=== PATIENT | male | born 1965 | race Caucasian/White ===

== ENCOUNTER → 2020-11-23 10:28 | Outpatient (BNVA) | payer MEDICAID, SELFPAY | PROVIDERS: PCP Family Medicine; Visit Provider Nurse Practitioner ==

== ENCOUNTER → 2020-11-24 13:27 | Outpatient (BNVA) | payer MEDICAID, SELFPAY | PROVIDERS: PCP Family Medicine; Visit Provider Internal Medicine | DX: J44.9 Chronic obstructive pulmonary disease, unspecified (principal); R05 Cough; J30.9 Allergic rhinitis, unspecified | CPT/HCPCS: 99202 ==

== ENCOUNTER 2020-12-15 07:46 | Day surgery (SDC) | payer MEDICAID, SELFPAY ==
[2020-12-10 14:19] VITALS: BMI 34.9
--- NOTE | ~2020-12-15 | XR_ITS ---
EXAMINATION: XR CHEST CLINICAL INFORMATION: Rule out aspiration COMPARISON: Previous chest x-ray most recent October 2018 TECHNIQUE: Frontal view of the chest was obtained. FINDINGS: The cardiac and mediastinal contours are normal. The lungs are clear. There is no pleural effusion. There are degenerative changes of the spine. XR/XR chest 1V IMPRESSION: Unremarkable examination.
--- NOTE | 2020-12-15 08:29 | P.CONAN_ITS ---
[facility] Active Problems Active Problems: All Active Problems (Updated 12/10/20 @ 14:10 by Lucita hilario) GERD with esophagitis (Acute) Holland's esophagus (Acute) Dysphagia (Acute) COPD (chronic obstructive pulmonary disease) (Acute) Allergic rhinitis (Acute) Cough (Acute) Past Medical History Medical History Allergic rhinitis COPD (chronic obstructive pulmonary disease) Cough GERD (gastroesophageal reflux disease) History of Holland's esophagus History of dysphagia Family History Family History Sister Leukemia Surgical History Surgical History History of esophagogastroduodenoscopy (EGD) Hx of colonoscopy Social History Social History Smoking Status: Never smoker Advance Directives Information Provided: No Meds Allergies Allergy/AdvReac Type Severity Reaction Status Date / Time No Known Allergies Allergy Verified 11/24/20 14:58 [No Known Allergies*] Home Medications Medication Instructions Recorded Confirmed Last Taken Type bupropion HCl 100 mg tablet,12 hr 100 mg PO DAILY 11/23/20 12/10/20 Unknown History sustained-release fluticasone 250 mcg-salmeterol 50 1 inh INHALATION BID 11/23/20 12/10/20 Unknown History mcg/dose blistr powdr for inhalation fluticasone propionate 50 1 spray INTRANASAL DAILY 11/23/20 12/10/20 Unknown History mcg/actuation nasal spray,suspension gabapentin 300 mg capsule 300 mg PO BID 11/23/20 12/10/20 Unknown History lisinopril 2.5 mg tablet 2.5 mg PO DAILY 11/23/20 12/10/20 Unknown History oxcarbazepine 150 mg tablet 150 mg PO BID 11/23/20 12/10/20 Unknown History risperidone 0.5 mg tablet 0.5 mg PO BID 11/23/20 12/10/20 Unknown History trazodone 100 mg tablet 100 mg PO BEDTIME 11/23/20 12/10/20 Unknown History Exam Exam Date and Time: December 15, [id number] Height,Weight and Vital Signs: Height 5 ft 7 in Weight 101 kg Airway Mallampati Class: III TM Dist: >3cm Neck ROM: Full Heart: RRR Lungs: CTA
[2020-12-15 08:51] VITALS: BP 120/79; PULSE 64; RESP 18; TEMP 37.1; O2SAT 96
[2020-12-15] MEDS: Lactated Ringers 1,000 ML 50 ML IV (09:05)
--- NOTE | 2020-12-15 09:09 | PC.NURSE ---
Pt lung sounds equal and clear bilateral. Pt uses inhaler PRN and has not used recently.
--- NOTE | 2020-12-15 09:13 | MHC.SHP ---
Pre-Procedural Eval Section A The patient is an INPATIENT: No Changes since office visit: Yes Patient answered all questions; No Cold of Flu in the past 2 weeks, No New Medical Problems and No Changes in Medication The History & Physical has been completed within 30 days and I have reviewed it.: Yes Section B Chief Complaint: Dysphagia Allergies: Allergies Allergy/AdvReac Type Severity Reaction Status Date / Time No Known Allergies Allergy Verified 12/15/20 08:42 [No Known Allergies*] Plan I have reviewed the history and physical and performed a pertinent physical examination on my patient. No changes have occurred unless specified.
--- NOTE | 2020-12-15 09:13 | PM.OP ---
Brief Operative Note Date of Service: 12/15/20 Pre-op diagnosis: GERD, Holland's esophageal [id number] ? hx asthma? EDIN? Post-op diagnosis: other (Holland's esophagus, small Hiatal hernia, superficial gastritis) Procedure: EGD with Bx Implants: none Surgeon: Eveline Alcaraz MD Anesthesia: MAC (Sovago) Estimated blood loss (mL): 5 Pathology: other (Gastric, distal Holland's esophagus) Condition: stable Disposition: PACU
[2020-12-15 09:51] VITALS: BP 117/72; PULSE 92; RESP 16; TEMP 37; O2SAT 96
[2020-12-15 10:06] VITALS: BP 110/66; PULSE 80; RESP 20; TEMP 37; O2SAT 97
--- NOTE | 2020-12-15 10:11 | W.PM.OPN ---
Operative Note Operative Note Date of Service: 12/15/20 Narrative: Pre-op diagnosis: GERD, Holland's esophageal [id number] ? hx asthma/COPD; Mood disorder with hx Psychosis(?) Post-op diagnosis: other (Holland's esophagus, small Hiatal hernia, superficial gastritis) Procedure: EGD with Bx Implants: none Surgeon: Eveline Alcaraz MD Anesthesia: MAC (Sovago) FINDINGS: Video scope introduced without difficulty navigated into the esophagus. Distal changes c/Holland's mucosa noted. ? small Hiatal hernia. STOMACH-MILD ERYTHEMA DUODENAL BULB/DUOD--NORMAL While bx distal esophageal area-desaturation ? 2nd to laryngospasm. Scope withdrawn. Spasm broke with no problems as per anesthesia. Estimated blood loss (mL): 5 Pathology: Gastric, distal Holland's esophagus Condition: stable Disposition: PACU PLAN: PATIENT WILL REMAIN ON BID ACID SUPRESSION. REPEAT EXAM IS DEPENDENT ON RESULT OF THE BX.
[2020-12-15 10:19] VITALS: BP 104/68; RESP 20; O2SAT 98
[2020-12-15 10:36] VITALS: BP 108/78; PULSE 75; RESP 16; TEMP 37; O2SAT 99
[2020-12-15 10:49] VITALS: BP 110/77; PULSE 65; RESP 16; TEMP 36.6; O2SAT 99
--- NOTE | 2020-12-15 11:37 | PC.NURSE ---
Patient took taxi home, mother accompanied him
== END 2020-12-15 11:35 | disposition home or self-care (01) ==
PROVIDERS: PCP Family Medicine; Visit Provider Internal Medicine Gastroenterology
PROC: 0DJ08ZZ Inspection of Upper Intestinal Tract, Via Natural or Artificial Opening Endoscopic (ICD-10-PCS; CPT 43235; principal; 2020-12-15 09:50)
DX: K22.70 Barrett's esophagus without dysplasia (principal); K21.00 Gastro-esophageal reflux disease with esophagitis, without bleeding; K29.30 Chronic superficial gastritis without bleeding; K44.9 Diaphragmatic hernia without obstruction or gangrene; F39 Unspecified mood [affective] disorder; J44.9 Chronic obstructive pulmonary disease, unspecified; Z79.51 Long term (current) use of inhaled steroids; Z79.899 Other long term (current) drug therapy
CPT/HCPCS: 43239; 71045; 88305; 88342

== ENCOUNTER → 2021-01-01 13:24 | Outpatient (BNVA) | payer MEDICAID, SELFPAY | PROVIDERS: Visit Provider Nurse Practitioner ==

== ENCOUNTER → 2021-01-05 10:32 | Outpatient (BNVA) | payer MEDICAID, SELFPAY | PROVIDERS: PCP Family Medicine; Visit Provider Internal Medicine | DX: J30.9 Allergic rhinitis, unspecified (principal); J98.01 Acute bronchospasm; J44.9 Chronic obstructive pulmonary disease, unspecified; R05 Cough | CPT/HCPCS: 99212 ==

== ENCOUNTER 2021-05-27 10:00 | Outpatient (RCR) | payer MEDICAID, SELFPAY | END 2021-10-18 11:58 | disposition home or self-care (01) | LOC: HO.PT 10:00 | PROVIDERS: PCP Family Medicine; Visit Provider Family Medicine | DX: M79.672 Pain in left foot (principal) | CPT/HCPCS: 97110; 97112; 97140; 97162 ==

== ENCOUNTER 2021-07-28 17:05 | Emergency (ER) | payer MEDICAID, SELFPAY ==
[2021-07-28 17:20] VITALS: BP 123/72; BP 132/80; PULSE 90; PULSE 95; RESP 18; TEMP 37.3; O2SAT 95; O2SAT 96; BMI 31.3
[2021-07-28] MEDS: EPINEPHrine 1 MG/ML VIAL 0.3 MG IM (17:36)
[2021-07-28] MEDS: methylPREDNISolone Sod Succ 125 MG/2 ML VIAL IVPUSH (17:38)
[2021-07-28] MEDS: diphenhydrAMINE HCL 50 MG/ML VIAL IVPUSH (17:38)
[2021-07-28] MEDS: Famotidine/PF 20 MG/2 ML VIAL IVPUSH (17:38)
--- NOTE | 2021-07-28 17:43 | ED_ITS ---
HPI - Allergic Reaction General Chief complaint: Allergic Reaction Stated complaint: SOB Time Seen by Provider: 07/28/21 17:23 Source: patient Mode of arrival: EMS Limitations: language barrier (German speaking only) History of Present Illness HPI narrative: 56-year-old male who presents emergency department for an allergic reaction. The patient states that at 4:00 p.m. he ate some shrimp. Immediately after eating the shrimp he developed a scratchy sensation in his throat, swelling around his eyes and face, difficulty swallowing, shortness of breath, and a diffuse pruritic rash. He states he also felt lightheaded and dizzy. The patient went to the [facility] clinic and was treated with epinephrine IM, Benadryl IM and transported to the emergency department by ambulance. The patient states that his symptoms did improve however he states however he still feels like his face is swollen. He still has a sensation of difficulty swallowing and shortness of breath. Presentation to the emergency department he was able to speak in full sentences. He does have a diffuse erythematous rash. Does not appear to be in respiratory distress. He states that he has been able to eat shrimp without any difficulty in the past. He has no known drug allergies. Related Data Home Medications Medication Instructions Recorded Confirmed bupropion HCl 100 mg tablet,12 hr 100 mg PO DAILY 11/23/20 12/10/20 sustained-release fluticasone propionate 50 1 spray INTRANASAL DAILY 11/23/20 12/10/20 mcg/actuation nasal spray,suspension gabapentin 300 mg capsule 300 mg PO BID 11/23/20 12/10/20 lisinopril 2.5 mg tablet 2.5 mg PO DAILY 11/23/20 12/10/20 oxcarbazepine 150 mg tablet 150 mg PO BID 11/23/20 12/10/20 (Trileptal) risperidone 0.5 mg tablet 0.5 mg PO BID 11/23/20 12/10/20 trazodone 100 mg tablet 100 mg PO BEDTIME 11/23/20 12/10/20 Previous Rx's Medication Instructions Recorded dexlansoprazole 60 mg 60 mg PO DAILY 30 Days #30 cap 11/23/20 capsule,biphase delayed release (Dexilant) sucralfate 1 gram tablet (Carafate) 1 g PO BID 30 Days #60 tab 11/23/20 epinephrine 0.3 mg/0.3 mL 0.3 mg (0.3 mL) IM Q10M PRN #2 ea 07/28/21 injection, auto-injector (EpiPen 2-Fausto) prednisone 20 mg tablet 60 mg PO DAILY 5 Days #15 tab 07/28/21 Allergies Allergy/AdvReac Type Severity Reaction Status Date / Time No Known Allergies Allergy Verified 01/05/21 10:55 [No Known Allergies*] Review of Systems Review of Systems: Yes all other systems are reviewed and are negative [facility] Past Medical History Medical History Allergic rhinitis Bronchospasm COPD (chronic obstructive pulmonary disease) Cough GERD (gastroesophageal reflux disease) History of Holland's esophagus History of dysphagia Surgical History History of esophagogastroduodenoscopy (EGD) Hx of abdominal surgery Hx of colonoscopy Family History Family History Sister Leukemia Social History Social History Household Members: None Alcohol intake: never Advance Directives: No Advance Directives Information Provided: Yes Current occupational status: unemployed Physical Exam Vital Signs: Vital Signs: Last Vital Signs Temp 98.7 F 07/28/21 19:51 Pulse 75 07/28/21 19:51 Resp 16 07/28/21 19:51 BP 114/71 07/28/21 19:51 Pulse Ox 96 07/28/21 19:51 BMI result Body Mass Index 31.3 Const: Other: Very pleasant and cooperative, awake alert male patient, able to speak in full sentences patient has a diffuse erythematous rash from head to toe. HENMT: Head: Yes normal to inspection, Yes normocephalic and Yes atraumatic Ears: external ears normal General nose exam: Normal external nose present Face and sinus: Yes normal facial exam Mouth: Normal oral and palatal mucosa present Throat: Yes posterior oropharynx normal Eyes: General: appearance normal, both eyes and all related structures Pupils: Equal, round and reactive pupils present Neck: Neck: Yes normal visual inspection, Yes no lymphadenopathy, Yes trachea midline and Yes supple Chest: Chest palpation & inspection: normal inspection of the chest and normal palpation of entire chest wall Resp: Effort & Inspection: normal respiratory effort and able to speak in complete sentences Auscultation: clear to auscultation bilaterally Cardio: Rate: regular rate Rhythm: regular rhythm Heart sounds: S1 normal heart sound present, S2 normal heart sound present and no murmurs GI: Inspection: Yes normal to inspection Palpation (GI): Soft to palpation, nontender and no guarding Auscultation: normal bowel sounds : General: Yes no CVA tenderness Back/Spine/Pelvis: Back: no CVA tenderness Skin: General skin exam: no rashes or lesions noted Neuro: Cranial nerves: Yes CN's II-XII intact bilaterally and Yes Equal, round and reactive pupils present Cognition (Neuro): normal cognition Motor exam (neuro): 5/5 motor strength present throughout Extrem: General: Yes normal to inspection Psych: Appearance: grossly normal Speech and movement: Normal speech and movement present Affect: normal affect Attitude: cooperative Thought process: Normal thought process present Thought content: Normal thought content present Course Course Course Narrative: 56-year-old male who developed a diffuse urticarial rash, shortness of breath, difficulty swallowing, facial swelling, lightheaded his dizziness immediately after eating shrimp at 4:00 p.m.. This is a new shrimp allergy for the patient patient was seen at the [facility] in treated with epinephrine and Benadryl IM and transported to the emergency department. here in the emergency department he was able to speak full sentences but still has symptoms including facial swelling, diffuse erythematous rash, difficulty swallowing and subjective shortness of breath. Patient was ordered to get epinephrine 0.3 mg IM Benadryl 50 mg IV, famotidine 20 mg IV and Solu-Medrol 125 mg IV. The patient will be kept on a cardiac and pulse oximetry monitor for 4 hours to make sure that does not have a rebound allergic reaction. 2114: The patient's symptoms have completely resolved, the patient states that he has no difficulty swallowing, he denies shortness of breath and he no longer has diffuse erythema. I did discuss allergic reactions with the patient, I also instructed the patient on how to use an EpiPen. Patient was given a prescription for prednisone 60 mg once a day for 5 days he started his next dose tomorrow morning. He was given both printed and verbal instructions on allergic reactions and told to avoid shrimp in the future.. Discharge Plan Discharge Clinical Impression: Anaphylaxis Qualifiers: Encounter type: initial encounter Qualified Code(s): T78.2XXA - Anaphylactic shock, unspecified, initial encounter Patient Disposition: Home, Self-Care Instructions: Anaphylaxis (ED), Tinnitus (ED) Additional Instructions: Your presentation was consistent with an anaphylactic allergic reaction to shrimp. Do not eat trip in the future. You need to carry an EpiPen with you at all times. If you develops any symptoms after eating food such as throat itchiness, tightness, lightheadedness, dizziness, lip or tongue swelling, shortness of breath, nausea or vomiting then you should give yourself an EpiPen as instructed. Take prednisone 20 mg pills, 3 pills once a day for 5 days. Follow-up with your doctor in 2 days. Please return to the emergency department if your symptoms get worse or if you develop any symptoms that are concerning to you. Prescriptions: New prednisone 20 mg tablet 60 mg PO DAILY 5 Days Qty: 15 RF: 0 epinephrine [EpiPen 2-Fausto] 0.3 mg/0.3 mL auto-injector 0.3 mg IM Q10M PRN (Reason: anaphylaxis) Qty: 2 RF: 0 No Action lisinopril 2.5 mg tablet 2.5 mg PO DAILY RF: 0 gabapentin 300 mg capsule 300 mg PO BID RF: 0 risperidone 0.5 mg tablet 0.5 mg PO BID RF: 0 trazodone 100 mg tablet 100 mg PO BEDTIME RF: 0 bupropion HCl 100 mg tablet sustained-release 12 hr 100 mg PO DAILY RF: 0 oxcarbazepine [Trileptal] 150 mg tablet 150 mg PO BID RF: 0 fluticasone propionate 50 mcg/actuation spray,suspension 1 spray intranasal DAILY RF: 0 sucralfate [Carafate] 1 gram tablet 1 g PO BID 30 Days Qty: 60 RF: 6 Dexilant 60 mg capsule,biphase delayed releas 60 mg PO DAILY 30 Days Qty: 30 RF: 0 Print Language: German
[2021-07-28 19:51] VITALS: BP 114/71; PULSE 75; RESP 16; TEMP 37.1; O2SAT 96
== END 2021-07-28 21:32 | disposition home or self-care (01) ==
PROVIDERS: Emergency Provider Emergency Medicine Emergency Medical Services; PCP Family Medicine
DX: T78.02XA Anaphylactic reaction due to shellfish (crustaceans), initial encounter (principal); J44.9 Chronic obstructive pulmonary disease, unspecified
CPT/HCPCS: 96372; 96374; 96375; 99284; J0171; J1200; J2930

== ENCOUNTER → 2021-09-27 09:46 | Outpatient (BNVA) | payer MEDICAID, SELFPAY | PROVIDERS: PCP Family Medicine; Visit Provider Internal Medicine | DX: J98.01 Acute bronchospasm (principal); J30.9 Allergic rhinitis, unspecified; R05.9 Cough, unspecified | CPT/HCPCS: 99212 ==

== ENCOUNTER → 2021-10-26 13:21 | Outpatient (BNVA) | payer MEDICAID, SELFPAY | PROVIDERS: PCP Family Medicine; Referring Provider Family Medicine; Visit Provider Nurse Practitioner | DX: R13.10 Dysphagia, unspecified (principal); K21.00 Gastro-esophageal reflux disease with esophagitis, without bleeding; K22.70 Barrett's esophagus without dysplasia | CPT/HCPCS: 99212 ==

== ENCOUNTER → 2022-05-25 09:59 | Outpatient (BNVA) | payer MEDICAID, SELFPAY | PROVIDERS: PCP Family Medicine; Referring Provider Family Medicine; Visit Provider Nurse Practitioner | DX: K21.00 Gastro-esophageal reflux disease with esophagitis, without bleeding (principal); K22.70 Barrett's esophagus without dysplasia | CPT/HCPCS: 99212 ==

== ENCOUNTER 2022-07-01 16:56 | Emergency (ER) | payer MEDICAID, SELFPAY ==
[2022-07-01 17:35] VITALS: BP 120/65; PULSE 83; RESP 18; TEMP 36.7; O2SAT 95; BMI 30.4
[2022-07-01 17:53] LABS: MANUAL DIFF FLAG NO
[2022-07-01 17:56] LABS: Glucose, Whole Blood 397 mg/dL (60-115)
--- NOTE | 2022-07-01 18:11 | ED_ITS ---
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 Patient states that he was seen at the [facility] and told that he has an elevated blood sugar and that he should be seen in the Emergency Department. Patient denies any dizziness, lightheadedness, abdominal pain, nausea, vomiting, fever, chills, blurry vision, double vision, loss of vision, chest pain, difficulty breathing, shortness of breath, back pain, night sweats, pain with urination, increased urinary frequency, increased urinary urgency, blood in his urine or stool, syncope or a near syncopal episode, recent trauma or falls, bowel incontinence, bladder incontinence, bowel retention, bladder retention, or any other complaints at this time. Severity: mild Relieving factors: none Exacerbating factors: none Associated symptoms: denies other symptoms Treatments prior to arrival: none Related Data Home Medications Medication Instructions Recorded Confirmed bupropion HCl 100 mg tablet,12 hr 100 mg PO DAILY 11/23/20 09/27/21 sustained-release fluticasone propionate 50 1 spray intranasal DAILY 11/23/20 09/27/21 mcg/actuation nasal spray,suspension gabapentin 300 mg capsule 300 mg PO BID 11/23/20 09/27/21 lisinopril 2.5 mg tablet 2.5 mg PO DAILY 11/23/20 09/27/21 oxcarbazepine 150 mg tablet 150 mg PO BID 11/23/20 09/27/21 (Trileptal) risperidone 0.5 mg tablet 0.5 mg PO BID 11/23/20 09/27/21 albuterol sulfate 90 mcg/actuation 2 puff inhalation Q6H PRN 09/27/21 09/27/21 aerosol inhaler (ProAir HFA) albuterol sulfate 2.5 mg/3 mL mg inhalation QID PRN 10/26/21 (0.083 %) solution for nebulization fluticasone 250 mcg-salmeterol 50 1 ea PO 10/26/21 mcg/dose blistr powdr for inhalation (Advair Diskus) losartan 25 mg tablet 12.5 mg PO QAM 10/26/21 alcohol swabs (Alcohol Prep Pads) pad topical TID diabetes mellitus 05/25/22 atorvastatin 20 mg tablet 20 mg PO BEDTIME 05/25/22 blood sugar diagnostic ([facility] 05/25/22 Verio test strips) blood-glucose [facility]25[facility]22 Verio Flex Meter) cyclobenzaprine 10 mg tablet 10 mg PO DAILY PRN muscle spasm 05/25/22 lancets 33 gauge ([facility] Delica #100 ea 05/25/22 Plus Lancet) metformin 500 mg tablet,extended 1,000 mg PO 05/25/22 release 24 hr trazodone 150 mg tablet 150 mg PO BEDTIME PRN insomnia 05/25/22 Previous Rx's Medication Instructions Recorded epinephrine 0.3 mg/0.3 mL 0.3 mg (0.3 mL) IM Q10M PRN 07/28/21 injection, auto-injector (EpiPen anaphylaxis #2 ea 2-Fausto) sucralfate 1 gram tablet 1 g PO BID #60 tabs 10/26/21 dexlansoprazole 60 mg 60 mg PO QAM #30 caps 04/27/22 capsule,biphase delayed release (Dexilant) famotidine 40 mg tablet 40 mg PO BEDTIME #30 tabs 04/27/22 Allergies Allergy/AdvReac Type Severity Reaction Status Date / Time No Known Allergies Allergy Verified 05/25/22 10:07 [No Known Allergies*] Review of Systems Constitutional: Constitutional: Reports no additional constitutional complaints, Denies chills, Denies fever(s) and Denies night sweats Eyes: Eyes: Reports no additional eye complaints, Denies blurry vision, Denies change in vision, Denies diplopia, Denies eye discharge, Denies loss of vision and Denies eye pain ENT: Denies dizziness Cardiovascular: Cardiovascular: Reports no additional cardiovascular complaints, Denies chest pain, Denies lightheadedness, Denies Loss of Conscio usness and Denies dyspnea Respiratory: Respiratory: Reports no additional respiratory complaints and Denies dyspnea Gastrointestinal: Gastrointestinal: Reports no additional gastrointestinal c omplaints, Denies abdominal pain, Denies melena, Denies hematochezia, Denies change in bowel habits and Denies change in stool character Genitourinary: Genitourinary: Reports no additional male genitourinary complaints, Denies hematuria, Denies oliguria, Denies difficulty urinating, Denies dysuria, Denies urinary frequency, Denies urinary hesitancy, Denies urinary incontinence and Denies urinary urgency Musculoskeletal: Musculoskeletal: Reports no additional musculoskeletal complaints, Denies numbness and Denies tingling Neurologic: Denies dizziness, Denies loss of vision, Denies numbness and Denies tingling Psychiatric: Psychiatric: Reports no additional psychiatric complaints Endocrine: Endocrine: Reports no additional endocrine complaints Hematologic/Lymphatic: Hematologic/Lymphatic: Reports no additional hematologic/lymphatic complaints Allergic/Immunologic: Allergic/Immunologic: Reports no additional allergic/immunologic complaints [facility] Past Medical History Attestation statement: The following information was validated with the patient. Source: old records reviewed Medical History Allergic rhinitis Bronchospasm COPD (chronic obstructive pulmonary disease) Cough GERD (gastroesophageal reflux disease) History of Holland's esophagus History of dysphagia Surgical History History of esophagogastroduodenoscopy (EGD) Hx of abdominal surgery Hx of colonoscopy Family History Family History Sister Leukemia Social History Social History Household Members: None Alcohol intake: never Advance Directives: No Advance Directives Information Provided: No Current occupational status: unemployed Physical Exam ED Vital Signs: Vital Signs - 24 hr 07/01/22 17:35 Temperature 98.1 F Pulse Rate 83 Respiratory Rate 18 Blood Pressure 120/65 Pulse Oximetry 95 Oxygen Delivery Method Room Air BMI result Body Mass Index 30.4 Const General: cooperative, no acute distress, alert and awake Nutritional Appearance: well nourished Orientation/consciousness: patient oriented x3 Limitations: no limitations HENMT Head: Yes normal to inspection and Yes atraumatic Ears: hearing grossly normal bilaterally and external ears normal General nose exam: Normal external nose present, no nasal discharge noted and no epistaxis Face and sinus: Yes normal facial exam, No abrasion and No laceration Mouth: Normal oral and palatal mucosa present, no drooling and no muffled voice Eyes General: appearance normal, both eyes and all related structures Periorbital: periorbital findings normal Eyelids: Yes eyelids normal Conjunctivae: conjunctivae normal Pupils: Equal, round and reactive pupils present EOM: EOMs intact bilaterally Neck Neck: Yes normal visual inspection, Yes full ROM and Yes no lymphadenopathy Chest Chest palpation & inspection: normal inspection of the chest Resp Effort & Inspection: normal respiratory effort and able to speak in complete sentences Auscultation: clear to auscultation bilaterally Cardio Rate: regular rate Rhythm: regular rhythm GI Inspection: Yes normal to inspection Palpation (GI): Soft to palpation, not firm, nontender, no guarding and not rigid Neuro General: patient oriented x3 and moves all extremities Cranial nerves: Yes Equal, round and reactive pupils present Cognition (Neuro): normal cognition Motor exam (neuro): 5/5 motor strength present throughout Sensory Exam: Normal double simultaneous stimulation for sensation Coordination: [id number] test normal Extrem General: Yes normal to inspection, Yes full ROM and Yes capillary refill normal Psych Appearance: grossly normal Mental Status: mental status grossly normal Affect: normal affect Attitude: cooperative Thought process: Normal thought process present Thought content: Normal thought content present Insight: Good insight present (Psych) Course Course Course Narrative: RME completed by Jolynn Page PA-C. Patient seen at [facility] and was told that his blood sugar was high and told to come to the ER. Labs ordered. Patient placed back in waiting room pending room availability and lab results. Patient eloped from the department before his results could be reviewed with him. Medical Decision Making Lab Data Result diagrams: 07/01/22 17:49 07/01/22 17:49 Labs: Lab Results 07/01/22 07/01/22 07/01/22 Range/Units 17:44 17:49 17:49 WBC 9.9 (4.8-10.8) X10*3/uL RBC 5.17 (4.60-5.80) X10*6/uL Hgb 15.1 (14.0-18.0) g/dl Hct 44.7 (42.0-52.0) % MCV 86.5 (80.0-98.0) fL MCH 29.2 (27.0-33.0) pg MCHC 33.8 (31.0-36.0) g/dl RDW 12.7 (11.0-16.0) % Plt Count 187 (160-400) X10*3/uL MPV 10.4 (9.4-12.4) fL Immature Gran % (Auto) 0.7 H (0.0-0.4) % Neut % (Auto) 53.5 (45-73) % Lymph % (Auto) 37.1 (20-40) % [place] % (Auto) 7.4 (2-11) % Eos % (Auto) 1.1 (0-4) % Baso % (Auto) 0.2 (0-2) % Lymph # (Auto) 3.7 (1.2-4.9) X10*3/uL [place] # (Auto) 0.7 (0.1-1.2) X10*3/uL Eos # (Auto) 0.1 (0.0-0.4) X10*3/uL Baso # (Auto) 0.0 (0.0-0.2) X10*3/uL Abs Immat Gran (auto) 0.07 H (0.00-0.03) X10*3/uL Absolute Neuts (auto) 5.3 (2.0-8.3) x10*3/uL Absolute Nucleated RBC 0.000 (0.0-0.012) X10*3/uL Nucleated RBC % (auto) 0.0 (0.0-0.2) /100WBC Sodium 134 L (135-145) mmol/L Potassium 4.4 (3.3-5.1) mmol/L Chloride 97 (96-108) mmol/L Carbon Dioxide 26 (22-29) mmol/L Anion Gap 15 (12-20) BUN 15 (9-16) mg/dL Creatinine 1.22 (0.5-1.4) mg/dL Estim Creat Clear Calc 71.4 Estimated GFR > 60 POC Glucose 397 H* (60-115) mg/dL Random Glucose 419 H* (60-115) mg/dL Estimat Average Glucose Hemoglobin A1c % % Calcium 10.1 (8.4-10.2) mg/dL Total Bilirubin 0.4 (0.0-1.0) mg/dL AST 17 (5-37) U/L ALT 20 (0-40) U/L Alkaline Phosphatase 140 H (39-117) U/L Total Protein 7.2 (6.5-8.0) g/dL Albumin 4.3 (3.5-5.0) g/dL 07/01/22 Range/Units 17:49 WBC (4.8-10.8) X10*3/uL RBC (4.60-5.80) X10*6/uL Hgb (14.0-18.0) g/dl Hct (42.0-52.0) % MCV (80.0-98.0) fL MCH (27.0-33.0) pg MCHC (31.0-36.0) g/dl RDW (11.0-16.0) % Plt Count (160-400) X10*3/uL MPV (9.4-12.4) fL Immature Gran % (Auto) (0.0-0.4) % Neut % (Auto) (45-73) % Lymph % (Auto) (20-40) % [place] % (Auto) (2-11) % Eos % (Auto) (0-4) % Baso % (Auto) (0-2) % Lymph # (Auto) (1.2-4.9) X10*3/uL [place] # (Auto) (0.1-1.2) X10*3/uL Eos # (Auto) (0.0-0.4) X10*3/uL Baso # (Auto) (0.0-0.2) X10*3/uL Abs Immat Gran (auto) (0.00-0.03) X10*3/uL Absolute Neuts (auto) (2.0-8.3) x10*3/uL Absolute Nucleated RBC (0.0-0.012) X10*3/uL Nucleated RBC % (auto) (0.0-0.2) /100WBC Sodium (135-145) mmol/L Potassium (3.3-5.1) mmol/L Chloride (96-108) mmol/L Carbon Dioxide (22-29) mmol/L Anion Gap (12-20) BUN (9-16) mg/dL Creatinine (0.5-1.4) mg/dL Estim Creat Clear Calc Estimated GFR POC Glucose (60-115) mg/dL Random Glucose (60-115) mg/dL Estimat Average Glucose TNP Hemoglobin A1c % > 14.0 % Calcium (8.4-10.2) mg/dL Total Bilirubin (0.0-1.0) mg/dL AST (5-37) U/L ALT (0-40) U/L Alkaline Phosphatase (39-117) U/L Total Protein (6.5-8.0) g/dL Albumin (3.5-5.0) g/dL Discharge Plan Discharge Clinical Impression: Diabetes Patient Disposition: Elopement Prescriptions: No Action famotidine 40 mg tablet 40 mg PO BEDTIME Qty: 30 6RF dexlansoprazole [Dexilant] 60 mg capsule,biphase delayed releas 60 mg PO QAM Qty: 30 6RF epinephrine [EpiPen 2-Fausto] 0.3 mg/0.3 mL auto-injector 0.3 mg IM Q10M PRN (Reason: anaphylaxis) Qty: 2 0RF Rx Instructions: for 2 doses lisinopril 2.5 mg tablet 2.5 mg PO DAILY gabapentin 300 mg capsule 300 mg PO BID risperidone 0.5 mg tablet 0.5 mg PO BID bupropion HCl 100 mg tablet sustained-release 12 hr 100 mg PO DAILY oxcarbazepine [Trileptal] 150 mg tablet 150 mg PO BID fluticasone propionate 50 mcg/actuation spray,suspension 1 spray intranasal DAILY Rx Instructions: administer into each nostril losartan 25 mg tablet 12.5 mg PO QAM fluticasone propion-salmeterol [Advair Diskus] 250-50 mcg/dose blister with device 1 ea PO albuterol sulfate 2.5 mg /3 mL (0.083 %) solution for nebulization inhalation QID PRN sucralfate 1 gram tablet 1 g PO BID Qty: 60 6RF albuterol sulfate [ProAir HFA] 90 mcg/actuation HFA aerosol inhaler 2 puff inhalation Q6H PRN (DME) lancets [OneTouch Delica Plus Lancet] 33 gauge misc See Rx Instructions .ROUTE TID Qty: 100 Rx Instructions: As directed alcohol swabs [Alcohol Prep Pads] Pads, Medicated topical TID (DME) OneTouch Verio test strips Strip See Rx Instructions .ROUTE TID Qty: 10 Rx Instructions: As directed atorvastatin 20 mg tablet 20 mg PO BEDTIME cyclobenzaprine 10 mg tablet 10 mg PO DAILY PRN (Reason: muscle spasm) trazodone 150 mg tablet 150 mg PO BEDTIME PRN (Reason: insomnia) (DME) blood-glucose meter [[facility] Verio Flex meter] Misc See Rx Instructions .ROUTE BID Qty: 1 Rx Instructions: As directed metformin 500 mg tablet extended release 24 hr 1,000 mg PO Discharge Date/Time: 07/01/22 21:54
[2022-07-01 18:14] LABS: Basophils Percent Auto 0.2 % (0-2); Eosinophils Absolute Auto 0.1 X10*3/uL (0.0-0.4); Eosinophils Percent Auto 1.1 % (0-4); Hematocrit 44.7 % (42.0-52.0); Hemoglobin 15.1 g/dl (14.0-18.0); Imm Gran Abs Auto 0.07 X10*3/uL (0.00-0.03); Imm Gran Pct Auto 0.7 % (0.0-0.4); Lymphocytes Absolute Auto 3.7 X10*3/uL (1.2-4.9); Lymphocytes Percent Auto 37.1 % (20-40); Mean Corpuscular HGB Conc 33.8 g/dl (31.0-36.0); Mean Corpuscular Hemoglobin 29.2 pg (27.0-33.0); Mean Corpuscular Volume 86.5 fL (80.0-98.0); Mean Platelet Volume 10.4 fL (9.4-12.4); Monocytes Absolute Auto 0.7 X10*3/uL (0.1-1.2); Monocytes Percent Auto 7.4 % (2-11); Neutrophils Absolute Auto 5.3 x10*3/uL (2.0-8.3); Neutrophils Percent Auto 53.5 % (45-73); Platelet Count 187 X10*3/uL (160-400); Red Blood Count 5.17 X10*6/uL (4.60-5.80); Red Cell Distribution Width 12.7 % (11.0-16.0); White Blood Count 9.9 X10*3/uL (4.8-10.8)
[2022-07-01 18:21] LABS: Alanine Aminotransferase 20 U/L (0-40); Albumin Level 4.3 g/dL (3.5-5.0); Alkaline Phosphatase 140 U/L (39-117); Anion Gap 15 (12-20); Aspartate Amino Transferase 17 U/L (5-37); Bilirubin Total 0.4 mg/dL (0.0-1.0); Blood Urea Nitrogen 15 mg/dL (9-16); Calcium 10.1 mg/dL (8.4-10.2); Carbon Dioxide 26 mmol/L (22-29); Chloride 97 mmol/L (96-108); Creatinine Clr Calc Pharmacy 71.4; Estimated Glomerular Filt Rate > 60; Glucose Random 419 mg/dL (60-115); Hemoglobin A1c % > 14.0 %; Potassium 4.4 mmol/L (3.3-5.1); Sodium 134 mmol/L (135-145); Total Protein 7.2 g/dL (6.5-8.0)
== END 2022-07-01 21:54 | disposition left against medical advice (07) ==
PROVIDERS: Physician Assistant Medical; Emergency Provider Emergency Medicine; PCP Family Medicine
DX: E11.9 Type 2 diabetes mellitus without complications (principal); I10 Essential (primary) hypertension; Z79.899 Other long term (current) drug therapy
CPT/HCPCS: 36415; 80053; 82947; 83036; 85025; 99281; 99283

== ENCOUNTER 2022-12-12 08:02 | Outpatient (REF) | payer MEDICAID, SELFPAY ==
--- NOTE | 2022-12-12 10:00 | MHC.AU.HA1 ---
Hearing Aid Evaluation Date of Visit: 12/12/22 Triage Specialist Used: Kiswahili- By Phone Historical Information: Description of Hearing: Borderline-normal sloping to severe sensorineural hearing loss bilaterally, worse in the right ear Summary: Patient was seen for audiological evaluation (see separate report for details). He is interested in trying amplification. He has noticed that his hearing loss is impacting his daily life and communication. Options were discussed. Hearing Aid Prescription: Based on the individual?s shared listening needs, communication environments, dexterity, desire for connectivity, and personal preferences, the following prescription for amplification has been made: Right ear: Make, Model, Color: Phonak Audeo L70-R, Black Battery Size: Rechargeable Manufacturing Mechanic/Slim Tube: 1M Type of Earmold/Dome/CShell/SlimTip: Open Dome Left ear: Make, Model, Color: Phonak Audeo L70-R, Black Battery Size: Rechargeable Manufacturing Mechanic/Slim Tube: 1M Type of Earmold/Dome/CShell/SlimTip: Open Dome Action Taken/Action Needed: Medical Clearance to be requested from PCP/ENT Hearing Instrument Fitting to be scheduled when materials arrive Primary Diagnosis: H90.3 Bilateral Sensorineural Hearing Loss Signature: Provider: Moriah Strauss, LESTER-A
--- NOTE | 2022-12-12 10:06 | MHC.AU.MED ---
Medical Clearance for Hearing Instrumentation Date: 12/12/22 Patient Name: Miguel Goldstein Date of : 1965 Referring Provider: Samra Marsh MD We have seen your patient on 12/12/22 and have determined that they are a candidate for amplification (See accompanying report). Specifically, they would benefit from: Hearing aid use in both ears There is a statute that addresses Medical Evaluation Requirements prior to fitting a patient with a hearing aid. According to [place] statute [facility] CMR:6.03(1), (a) General. Except as provided in 265 CMR 6.03(1)(b), a rod placer shall not sell a hearing aid unless the prospective user has presented to the rod placer a written statement signed by a licensed physician that states that the patient's hearing loss has been medically evaluated and the patient may be considered a candidate for a hearing aid. The medical evaluation must have taken place within the preceding six months. Please note: Due to the [place] Statute referenced above, we cannot accept a signature other than that of a licensed physician. LEAD MINER and PA signatures cannot be accepted. I am in agreement with the above recommendation. There is no medical contraindication for hearing instrumentation. Physician Signature Date Physician Name (Printed)
== END 2022-12-12 08:03 | disposition home or self-care (01) ==
LOC: HO.SH 08:02
PROVIDERS: Visit Provider Family Medicine
DX: H90.3 Sensorineural hearing loss, bilateral (principal)
CPT/HCPCS: 92557; 92567; 92591

== ENCOUNTER 2023-01-11 08:25 | Outpatient (REF) | payer MEDICAID, SELFPAY ==
--- NOTE | 2023-01-11 08:52 | MHC.AU.NMH ---
Hearing Aid Delivery Receipt: Third Libertarian Payor [facility] type [facility] Other: Date of Fitting: End of Adjustment Period: 30 days from date of fitting Vending Machine Coin Collector: Right Ear: Left Ear: Make, Model, Serial Number and Color: Phonak Shahzadeo L70-R, Olman S#[id number] Make, Model, Serial Number and Color: Phonak Shahzadeo L70-R, Olman S#[id number] Bolt Machine Operator/Slim Tube: 1M Bolt Machine Operator/Slim Tube: 1M Earmold/Dome/CShell/SlimTip: Open Dome Earmold/Dome/CShell/SlimTip: Open Dome Type of Wax Guard: CeruShield Disk Type of Wax Guard: CeruShield Disk Battery Size: Rechargeable Battery Size: Rechargeable Laundry Supervisor Repair Warranty: 03/26/2026 Laundry Supervisor Repair Warranty: 03/26/2026 Laundry Supervisor Loss and Damage Warranty: 03/26/2026 Laundry Supervisor Loss and Damage Warranty: 03/26/2026 [facility] Service Agreement ends one year from date of fitting on? [facility] Service Agreement ends one year from date of fitting on Accessories/Assistive Technology: Phonak battery charger conveyor line Case Combi S#[id number] Following the expiration of [facility]?s service agreement, charges for items and services listed above are billed at the usual and customary rate. *If coverage by third republican payor exists, medically necessary modifications, repairs, etc. will be billed to said third republican payor. If there is no third republican payor eligibility beyond the service agreement or forest ranger technician warranty periods, items will be billed per usual and customary rates and payment is expected at the time of service. Hearing aids that are lost or damaged beyond repair cannot be returned for credit, and the bindery worker is liable for the full purchase hyatt. My signature below acknowledges that I have read and understand this hearing aid contract and have received the goods and services out lined above. ?Date? Home Address: ? PATIENT STICKER ? This hearing aid will not restore normal hearing nor will it prevent further hearing loss. The sale of a hearing aid is restricted to those individuals who have obtained a medical evaluation from a licensed physician or senior sql developer. A fully informed adult whose advent or personal beliefs preclude consultation with a physician may waive the requirement of a medical evaluation. The exercise of such a waiver is not in your best health interest and its use is strongly discouraged. It is also required that a person under the age of eighteen years obtain an evaluation by an cloth shrinking machine operator helper in addition to the medical evaluation before a hearing aid can be sold to such person. Cheko Figueroa,Title XV,Chapter 93:74
== END 2023-01-11 08:26 | disposition home or self-care (01) ==
LOC: HO.HAP 08:25
PROVIDERS: Visit Provider Family Medicine
DX: Z46.1 Encounter for fitting and adjustment of hearing aid (principal); H90.3 Sensorineural hearing loss, bilateral
CPT/HCPCS: V5011; V5020; V5160; V5261

== ENCOUNTER 2023-02-13 10:10 | Outpatient (REF) | payer MEDICAID, SELFPAY | END 2023-02-13 10:11 | disposition home or self-care (01) | LOC: HO.HAP 10:10 | PROVIDERS: Visit Provider Family Medicine | DX: Z13.89 Encounter for screening for other disorder (principal) ==

== ENCOUNTER 2023-04-27 11:14 | Outpatient (REF) | payer MEDICAID, SELFPAY ==
[2023-04-27 13:53] LABS: Cholesterol 121 mg/dL (<200); HDL Cholesterol 43 mg/dL (>40); LDL Cholesterol Calculated 59 mg/dL (<100); Triglycerides 95 mg/dL (<150)
[2023-04-27 13:54] LABS: Alanine Aminotransferase 17 U/L (0-40); Albumin Level 4.1 g/dL (3.5-5.0); Alkaline Phosphatase 98 U/L (39-117); Anion Gap 13 (12-20); Aspartate Amino Transferase 17 U/L (5-37); Bilirubin Total 0.3 mg/dL (0.0-1.0); Blood Urea Nitrogen 10 mg/dL (9-16); Calcium 9.7 mg/dL (8.4-10.2); Carbon Dioxide 26 mmol/L (22-29); Chloride 107 mmol/L (96-108); Estimated Glomerular Filt Rate > 60; Glucose Random 118 mg/dL (60-115); Potassium 4.2 mmol/L (3.3-5.1); Sodium 142 mmol/L (135-145); Total Protein 7.4 g/dL (6.5-8.0)
[2023-04-27 14:11] LABS: TSH reflex Free T4 3.95 uIU/mL (0.32-4.0)
[2023-04-27 14:15] LABS: Creatinine Urine 149.27 mg/dL; Microalbum/Creatinine Ratio Ur 7.3 ug/mg cr (<30)
[2023-04-27 14:24] LABS: Folate 9.3 ng/mL (> or = 4.0); Vitamin B12 453 pg/mL (200-900)
[2023-04-27 14:38] LABS: Reflex LDLD? No
== END 2023-04-27 11:15 | disposition home or self-care (01) ==
LOC: HO.HHCL 11:14
PROVIDERS: Visit Provider Family Medicine
DX: E66.09 Other obesity due to excess calories (principal); Z68.34 Body mass index [BMI] 34.0-34.9, adult; E11.65 Type 2 diabetes mellitus with hyperglycemia; Z79.4 Long term (current) use of insulin
CPT/HCPCS: 36415; 80053; 80061; 82043; 82570; 82607; 82746; 84443

== ENCOUNTER 2024-01-09 14:22 | Outpatient (REF) | payer MEDICAID, SELFPAY ==
[2024-01-09 15:33] LABS: MANUAL DIFF FLAG NO
[2024-01-09 15:55] LABS: Basophils Absolute Auto 0.1 X10*3/uL (0.0-0.2); Basophils Percent Auto 0.5 % (0-2); Eosinophils Absolute Auto 0.2 X10*3/uL (0.0-0.4); Hemoglobin 14.5 g/dl (14.0-18.0); Imm Gran Abs Auto 0.05 X10*3/uL (0.00-0.03); Imm Gran Pct Auto 0.4 % (0.0-0.4); Lymphocytes Absolute Auto 4.9 X10*3/uL (1.2-4.9); Lymphocytes Percent Auto 42.4 % (20-40); Mean Corpuscular HGB Conc 32.2 g/dl (31.0-36.0); Mean Corpuscular Hemoglobin 28.6 pg (27.0-33.0); Mean Corpuscular Volume 88.8 fL (80.0-98.0); Mean Platelet Volume 9.2 fL (9.4-12.4); Monocytes Absolute Auto 1.1 X10*3/uL (0.1-1.2); Monocytes Percent Auto 9.3 % (2-11); Neutrophils Absolute Auto 5.3 x10*3/uL (2.0-8.3); Neutrophils Percent Auto 45.4 % (45-73); Platelet Count 230 X10*3/uL (160-400); Red Blood Count 5.07 X10*6/uL (4.60-5.80); Red Cell Distribution Width 14.1 % (11.0-16.0); White Blood Count 11.6 X10*3/uL (4.8-10.8)
[2024-01-09 17:19] LABS: Alanine Aminotransferase 48 U/L (0-40); Albumin Level 4.2 g/dL (3.5-5.0); Alkaline Phosphatase 95 U/L (39-117); Anion Gap 16 (12-20); Aspartate Amino Transferase 35 U/L (5-37); Bilirubin Total 0.3 mg/dL (0.0-1.0); Blood Urea Nitrogen 16 mg/dL (9-16); Carbon Dioxide 27 mmol/L (22-29); Chloride 105 mmol/L (96-108); Estimated Glomerular Filt Rate > 60; Glucose Random 100 mg/dL (60-115); Potassium 4.2 mmol/L (3.3-5.1); Sodium 144 mmol/L (135-145); Total Protein 7.6 g/dL (6.5-8.0)
== END 2024-01-09 14:23 | disposition home or self-care (01) ==
LOC: HO.LAB 14:22
PROVIDERS: PCP Family Medicine; Visit Provider Nurse Practitioner
DX: Z01.818 Encounter for other preprocedural examination (principal); K22.70 Barrett's esophagus without dysplasia; K21.00 Gastro-esophageal reflux disease with esophagitis, without bleeding
CPT/HCPCS: 36415; 80053; 85025; 99212

== ENCOUNTER 2024-01-09 14:22 | Outpatient (AMB) | payer MEDICAID, SELFPAY ==
[2024-01-09 14:29] VITALS: BP 132/79; PULSE 83; BMI 34.9
--- NOTE | 2024-01-09 14:29 | A.OFFVIS_ITS ---
Vital Signs 3 01/09/24 14:29 Height 5 ft 7 in Weight 223 lb BMI 34.9 BP 132/79 Blood Pressure Location Lt brachial Position Sitting Pulse 83 Intake Visit Reasons: Wren's esophagus Intake Note: Patient in office visit today in follow up of wren's esophagus. CC; Patient states that he has been doing well and denies having any GI concerns today. 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 He has no new medical conditions to report he continues to call manage his diabetes. He will be due for repeat colonoscopy in 2023. ROV 6 mos. (2) Wren's esophagus: ?Comment: 2017 EGD = SSBE by biopsy and visual; 2021 scope no metaplasia but continued esophageal irritation noted ?Code(s): K22.70 - Wren's esophagus without dysplasia TODAY'S VISIT Czech #Lon Live He is due for a colonoscopy, he had a negative exam in 2013 He continues to do well on his medications; his Dexilant, famotidine and carafate He thinks he had a sister who of crc - she of some colon problem. His COPD is well controlled and he denies any cardiac problems. There are no prior problems with anesthesia or sedation, he is on Trulicity. No ID problems PFSH Medical History Bronchospasm History of dysphagia GERD (gastroesophageal reflux disease) History of Wren's esophagus COPD (chronic obstructive pulmonary disease) Allergic rhinitis Cough Surgical History Hx of abdominal surgery Hx of colonoscopy History of esophagogastroduodenoscopy (EGD) Family History Sister Leukemia Social History Household Members: None Alcohol intake: never Current occupational status: unemployed Review of Systems Const Denies fatigue, Denies fever(s), Denies night sweats, Denies poor appetite and Denies weight loss ENT Reports Normal hearing present, Denies dental pain, Denies dysphagia, Denies hearing loss, Denies mouth pain, Denies odynophagia, Denies throat swelling, Denies tongue swelling and Reports other (Dentition adequate) Card Reports no additional complaints Resp Reports no additional complaints GI Details: Denies abdominal pain, Denies melena, Denies bloating, Denies hematochezia, Denies constipation, Denies GI cramping, Denies dysphagia, Denies excessive flatus, Denies early satiety, Reports heartburn, Reports diarrhea, Denies nausea, Denies odynophagia, Denies vomiting and Denies hematemesis Skin/Breast Denies pruritus, Denies lesions, Denies rash and Denies jaundice Neuro Reports Normal hearing present and Denies Abnormal speech present Endo Denies fatigue Aller/Immun Denies throat swelling and Denies tongue swelling Physical Exam Vital Signs: Last Vital Signs Pulse 83 01/09/24 14:29 BP 132/79 01/09/24 14:29 BMI result Body Mass Index 34.9 Const General: cooperative, no acute distress, well developed and well groomed Nutritional Appearance: well nourished and obese Orientation/consciousness: oriented to person, oriented to place and oriented to time Limitations: language barrier HEENT Head: Yes normocephalic and Yes atraumatic Eyes General: appearance normal, both eyes and all related structures Pupils: Equal, round and reactive pupils present Neck Neck: Yes normal visual inspection and Yes no lymphadenopathy Thyroid: Thyroid normal Resp Effort & Inspection: normal respiratory effort and able to speak in complete sentences Auscultation: clear to auscultation bilaterally Cardio Rate: regular rate Rhythm: regular rhythm Heart sounds: Normal, physiologic split S2 sound present Peripheral pulses: radial pulses present and posterior tibial pulses present GI Inspection: No distended, No Abdominal panniculus present and Yes obesity Palpation (GI): Soft to palpation, nontender, no guarding, not rigid and No hepatosplenomegaly present Percussion: Yes normal to percussion Auscultation: normal bowel sounds Rectal Exam - Male: Yes deferred Abdomen image: 2 1. surgical scar Skin General skin exam: no rashes or lesions noted, turgor normal, skin not dry, no jaundice, No spider nevi and no striae Rashes: no rashes Nails: normal Neuro General: oriented to person, oriented to place and oriented to time Cranial nerves: Yes Equal, round and reactive pupils present and Yes Normal hearing present Speech: No Abnormal speech present Extrem General: Yes normal to inspection, No clubbing, No cyanosis and No edema Psych Appearance: grossly normal and well kempt Mental Status: mental status grossly normal Speech and movement: Normal speech and movement present Affect: normal affect Attitude: cooperative Thought process: Normal thought process present and not confabulating Thought content: Normal thought content present Insight: Limited insight present (Psych) Judgement: Limited judgement present (Psych) Assessment & Plan Assessment & Plan (1) GERD with esophagitis: Code(s): K21.00 - Gastro-esophageal reflux disease with esophagitis, without bleeding Category: Medical (2) Wren's esophagus: Comment: 2017 EGD = SSBE by biopsy and visual; 2021 scope no metaplasia but continued esophageal irritation noted Code(s): K22.70 - Wren's esophagus without dysplasia Category: Medical (3) Pre-op examination: Code(s): Z01.818 - Encounter for other preprocedural examination Category: Medical Plan Czech #Lon Live He is due for a colonoscopy, he had a negative exam in 2013 He continues to do well on his medications; his Dexilant, famotidine and carafate He thinks he had a sister who of crc - she of some colon problem. His COPD is well controlled and he denies any cardiac problems. There are no prior problems with anesthesia or sedation, he is on Trulicity. No ID problems Orders: Orders 2 Complete Blood Count Auto Diff Today Z01.818 - Encounter for other preprocedural examination Comprehensive Met. Panel Today Z01.818 - Encounter for other preprocedural examination Colonoscopy - GI Use Only Today Z01.818 - Encounter for other preprocedural examination Medications: New 2 peg 3350-electrolytes 236-22.74-6.74 -5.86 gram (Golytely) until fecal effluent is clear; do not exceed a total volume of 2,000 mL 240 mL PO Q10M 4,000 mL 0RF 1 day Z12.11 - Encounter for screening for malignant neoplasm of colon bisacodyl (Dulcolax (bisacodyl)) 10 mg (2 x 5 mg) PO BEDTIME 4 tabs 0RF 2 days Refilled 2 famotidine 40 mg PO BEDTIME 30 tabs 6RF K21.00 - Gastro-esophageal reflux disease with esophagitis, without bleeding, K22.70 - Wren's esophagus without dysplasia dexlansoprazole (Dexilant) 60 mg PO QAM 30 caps 6RF K21.00 - Gastro-esophageal reflux disease with esophagitis, without bleeding, K22.70 - Wren's esophagus without dysplasia sucralfate 1 g PO BID 60 tabs 6RF K21.00 - Gastro-esophageal reflux disease with esophagitis, without bleeding, K22.70 - Wren's esophagus without dysplasia Coding Level of Care Code Est Pt Level 4 (78777) Diagnoses GERD with esophagitis K21.00 Wren's esophagus K22.70 Pre-op examination Z01.818
== END 2024-01-09 15:15 | disposition home or self-care (01) ==
PROVIDERS: PCP Family Medicine; Visit Provider Nurse Practitioner
DX: K21.00 Gastro-esophageal reflux disease with esophagitis, without bleeding (principal); K22.70 Barrett's esophagus without dysplasia; Z01.818 Encounter for other preprocedural examination
CPT/HCPCS: 99214

== ENCOUNTER 2024-01-11 21:15 | Emergency (ER) | payer MEDICAID, SELFPAY ==
--- NOTE | ~2024-01-11 | CT_ITS ---
EXAMINATION: CT ABDOMEN AND PELVIS WITHOUT CONTRAST CLINICAL INFORMATION: Abdominal pain. COMPARISON: None available. TECHNIQUE: Multidetector volumetric imaging was performed from the superior aspect of the liver through the pubic symphysis. Sagittal and coronal reformatted images were obtained on the technologist's workstation. This CT examination was performed using dose optimization techniques as appropriate, variously including the following: *Automated exposure control *Adjustment of mA and/or kV according to patient size (this includes techniques or standardized protocols for targeted exams where dose is matched to indication/reason for exam; i.e. extremities or head) *Use of iterative reconstruction technique DLP: 695 mGy-cm FINDINGS: LUNG BASES: There is minimal atelectatic change at both lung bases. LIVER, GALLBLADDER, AND BILIARY TREE: The liver is normal in size, shape, and attenuation. No focal hepatic lesion or biliary ductal dilatation is present. The gallbladder is unremarkable with no evidence of radiopaque gallstones, gallbladder wall thickening, or obvious pericholecystic inflammatory changes. PANCREAS: Unremarkable. SPLEEN: Unremarkable. ADRENAL GLANDS: Unremarkable. KIDNEYS AND URETERS: The kidneys are normal in size, location and attenuation. There are three 2 mm calculi lower pole of the right kidney. There is no hydronephrosis. BLADDER: Unremarkable. GASTROINTESTINAL TRACT: Mildly dilated mid small bowel loops up to 3.5 cm with mild thickening and mild surrounding infiltration. The appendix is visualized and is within normal limits. ABDOMINAL WALL: No significant hernia is appreciated. LYMPH NODES: Normal. VASCULAR: Unremarkable. PELVIC VISCERA: Mild prostate gland hypertrophy with calcification. OSSEOUS STRUCTURES: Moderate L5-S1 disc degenerative change. CT/CT abdomen pelvis wo IV con IMPRESSION: 1. Mildly dilated mid small bowel loops with mild thickening and mild surrounding infiltration suggesting enteritis, of uncertain etiology. A developing bowel obstruction considered less likely. Clinical follow-up suggested. 2. There are three 2 mm calculi lower pole of the right kidney. There is no hydronephrosis. Fleischner guidelines were followed.
--- NOTE | ~2024-01-11 | XR_ITS ---
EXAMINATION: XR ABDOMEN KUB CLINICAL INDICATION: Constipation. COMPARISON: None available. TECHNIQUE: AP view of the abdomen. FINDINGS: Portions of the mid to lower abdomen is not imaged. The bowel gas pattern is normal with no evidence of ileus or obstruction. No unusual soft tissue calcifications are noted. The bones are unremarkable. XR/XR KUB IMPRESSION: Limited study. No significant abnormality identified.
[2024-01-11 21:27] VITALS: BP 136/88; BP 141/88; PULSE 103; PULSE 93; RESP 16; TEMP 37; O2SAT 93; O2SAT 96; BMI 34.7
[2024-01-11 21:53] LABS: MANUAL DIFF FLAG NO
[2024-01-11 22:03] LABS: Basophils Percent Auto 0.2 % (0-2); Eosinophils Absolute Auto 0.1 X10*3/uL (0.0-0.4); Eosinophils Percent Auto 0.6 % (0-4); Hematocrit 46.8 % (42.0-52.0); Hemoglobin 15.7 g/dl (14.0-18.0); Imm Gran Abs Auto 0.08 X10*3/uL (0.00-0.03); Imm Gran Pct Auto 0.5 % (0.0-0.4); Lymphocytes Absolute Auto 3.3 X10*3/uL (1.2-4.9); Lymphocytes Percent Auto 18.4 % (20-40); Mean Corpuscular HGB Conc 33.5 g/dl (31.0-36.0); Mean Corpuscular Hemoglobin 29.1 pg (27.0-33.0); Mean Corpuscular Volume 86.8 fL (80.0-98.0); Mean Platelet Volume 9.2 fL (9.4-12.4); Monocytes Absolute Auto 1.3 X10*3/uL (0.1-1.2); Monocytes Percent Auto 7.2 % (2-11); Neutrophils Percent Auto 73.1 % (45-73); Platelet Count 240 X10*3/uL (160-400); Red Blood Count 5.39 X10*6/uL (4.60-5.80); Red Cell Distribution Width 13.8 % (11.0-16.0); White Blood Count 17.8 X10*3/uL (4.8-10.8)
[2024-01-11 22:10] LABS: Alanine Aminotransferase 39 U/L (0-40); Albumin Level 4.5 g/dL (3.5-5.0); Alkaline Phosphatase 98 U/L (39-117); Anion Gap 19 (12-20); Aspartate Amino Transferase 24 U/L (5-37); Bilirubin Total 0.4 mg/dL (0.0-1.0); Blood Urea Nitrogen 14 mg/dL (9-16); Calcium 10.5 mg/dL (8.4-10.2); Carbon Dioxide 28 mmol/L (22-29); Chloride 102 mmol/L (96-108); Creatinine Clr Calc Pharmacy 93.4; Estimated Glomerular Filt Rate > 60; Glucose Random 119 mg/dL (60-115); Lipase 17 U/L (8-78); Potassium 4.4 mmol/L (3.3-5.1); Sodium 145 mmol/L (135-145); Total Protein 8.3 g/dL (6.5-8.0)
[2024-01-12 00:46] LABS: Glucose, Whole Blood 137 mg/dL (60-115)
[2024-01-12 01:00] VITALS: BP 125/83; PULSE 78; RESP 18; TEMP 36.4; O2SAT 92
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
[2024-01-12] MEDS: Famotidine/PF 20 MG/2 ML VIAL IVPUSH (02:09)
[2024-01-12] MEDS: Magnesium Hydrox/Alum Hydrox 30 ML ORAL.SUSP PO (02:09)
[2024-01-12 03:19] VITALS: BP 103/60; PULSE 107; RESP 18; TEMP 37; O2SAT 95
[2024-01-12 03:42] LABS: Appearance Urine Clear; Color Urine Dark Yellow; Glucose Urine UA Negative (Negative); Leukocyte Esterase Urine Negative (Negative); Nitrite Urine Negative (Negative); Specific Gravity - Urine >= 1.030 (1.005-1.025); UMIC TRIGGER UACC YES; Urine Blood Negative (Negative); Urine Ketones Trace mg/dL (Negative); Urine Protein 30 (1+) mg/dL (Neg-Trace)
[2024-01-12 03:47] LABS: Bacteria Urine None Seen (None Seen); RBC Urine 0-2 /HPF (0-2); Squamous Epithelial Cell Urine 0-2 /HPF (0-2); WBC Urine 0-5 /HPF (0-5)
[2024-01-12 05:33] VITALS: BP 110/58; PULSE 109; RESP 16; TEMP 36.9; O2SAT 92
[2024-01-12 06:37] VITALS: BP 110/58; PULSE 109; RESP 16; TEMP 36.9; O2SAT 94
== END 2024-01-12 07:14 | disposition home or self-care (01) ==
PROVIDERS: Emergency Provider Emergency Medicine; PCP Family Medicine
DX: R10.9 Unspecified abdominal pain (principal); K22.70 Barrett's esophagus without dysplasia; J44.9 Chronic obstructive pulmonary disease, unspecified; Z79.899 Other long term (current) drug therapy
CPT/HCPCS: 36415; 74018; 74176; 80053; 81001; 82947; 83690; 85025; 99284

== ENCOUNTER 2024-01-18 09:28 | Outpatient (AMB) | payer MEDICAID, SELFPAY ==
[2024-01-18 09:33] VITALS: BP 120/68; PULSE 75; O2SAT 95; BMI 34.6
--- NOTE | 2024-01-18 09:33 | MHC.OFFVIS ---
Vital Signs 01/18/24 09:33 Height 5 ft 7 in Weight 221 lb BMI 34.6 BP 120/68 Blood Pressure Location Lt brachial Position Sitting Pulse 75 Pulse Source Pulse Oximeter Pulse Oximetry (%) 95 Oxygen Delivery Method Room Air Intake Visit Reasons: Asthma Intake Note: pt is here for asthma and feeling good. please refill flonase Senior Software Development Manager Required: Yes Senior Software Development Manager Name: Tawny Allergies No Known Allergies [No Known Allergies*] Allergy (Verified 01/18/24 09:50) Medication List - Last Reconciled 01/18/24 by Sarwat Acosta MD albuterol sulfate 90 mcg/actuation (ProAir HFA) 2 puffs inhalation Q6H PRN albuterol sulfate mg inhalation QID PRN alcohol swabs (Alcohol Prep Pads) pad topical TID atorvastatin 20 mg PO BEDTIME bisacodyl (Dulcolax (bisacodyl)) 10 mg (2 x 5 mg) PO BEDTIME 2 days blood sugar diagnostic ([employer] Verio test strips) As directed blood-glucose meter ([employer] Verio Flex Meter) As directed bupropion HCl SR 100 mg PO DAILY cyclobenzaprine 10 mg PO DAILY PRN dexlansoprazole (Dexilant) 60 mg PO QAM doxepin 10 mg PO BEDTIME dulaglutide (Trulicity) mg subcut QWEEK epinephrine (EpiPen 2-Fausto) 0.3 mg (0.3 mL) IM Q10M PRN famotidine 40 mg PO BEDTIME fluticasone propion-salmeterol 250-50 mcg/dose (Advair Diskus) 1 ea PO fluticasone propionate 50 mcg/actuation 1 spray intranasal DAILY gabapentin 300 mg PO BID insulin degludec (Tresiba FlexTouch U-100 insulin) 26 units subcut DAILY lancets ([employer] Delica Plus Lancet) As directed lisinopril 2.5 mg PO DAILY losartan 12.5 mg PO QAM metformin ER 1,000 mg PO oxcarbazepine (Trileptal) 150 mg PO BID peg 3350-electrolytes 236-22.74-6.74 -5.86 gram (Golytely) 240 mL PO Q10M 1 day risperidone 0.5 mg PO BID sucralfate 1 g PO BID trazodone 150 mg PO BEDTIME PRN Do you need a note to return to daycare/school/sports/work: No HPI HPI Asthma: Details: 58 years old gentleman, Croatian-speaking, has history of mildittent bronchial asthma, for which he uses ProAir as needed but only once in a while. He also has mildgic rhinitis with intermittent nasal congestion and uses Flonase 1 spray in each nostril daily. He is coming for follow-up after a few years, because pulmonary meraz he has remained very stable At present he denies any cough expectoration or wheezing. He remains moderately overweight . He denies smoking. COUNT INCLUDES [facility] Medical History (Updated 01/18/24 @ 10:43 by Sarwat Acosta MD) Asthma Bronchospasm History of dysphagia GERD (gastroesophageal reflux disease) History of Holland's esophagus COPD (chronic obstructive pulmonary disease) Allergic rhinitis Cough Surgical History Hx of abdominal surgery Hx of colonoscopy History of esophagogastroduodenoscopy (EGD) Family History Sister Leukemia Social History Household Members: None Alcohol intake: never Current occupational status: unemployed Review of Systems Const All systems reviewed & are unremarkable except as noted in HPI and below Eyes Reports no additional complaints ENT Reports nasal congestion (Mild off and on especially at night) Card Denies chest pain, Denies irregular heart rhythm and Denies leg edema Resp Reports as per HPI GI Reports heartburn (Intermittent controlled with use of sucralfate and Dexilant) Reports no additional complaints Musc Reports no additional complaints Skin/Breast Reports system reviewed and no additional complaints, except as documented Neuro Reports no additional complaints Psych Reports anxiety (Controlled) Endo Reports no additional complaints Sukhdev/Lymph Reports no additional complaints Physical Exam Vital Signs: Last Vital Signs Pulse 75 01/18/24 09:33 BP 120/68 01/18/24 09:33 Pulse Ox 95 01/18/24 09:33 Oxygen Delivery Method Room Air 01/18/24 09:33 BMI result Body Mass Index 34.6 Const General: healthy appearing (Except for being overweight), comfortable, no acute distress, alert and awake Orientation/consciousness: patient oriented x3 HEENT Head: Yes normal to inspection General nose exam: No nasal polyps present and No nasal discharge present Face and sinus: Yes sinuses nontender Mouth: oropharynx normal Throat: Yes posterior oropharynx normal Eyes General: appearance normal, both eyes and all related structures Neck Neck: Yes normal visual inspection, Yes no lymphadenopathy, Yes trachea midline and Yes no JVD Thyroid: Thyroid normal Chest Chest palpation & inspection: normal inspection of the chest, normal palpation of entire chest wall and no tenderness Resp Effort & Inspection: normal respiratory effort Auscultation: clear to auscultation bilaterally, no crackles and no wheezes Percussion: percussion normal Cardio Palpation: normal PMI Rate: regular rate Rhythm: regular rhythm Heart sounds: no gallops and no murmurs Peripheral pulses: Peripheral pulses 2+ throughout GI Palpation (GI): Soft to palpation, nontender, No hepatosplenomegaly present, no masses and Other GI palpation findings present (Abdomen is obese and slightly protuberant) Auscultation: normal bowel sounds Back/Spine/Pelvis Thoracic/Lumbar Spine: thoracic and lumbar spine normal to inspection Skin General skin exam: no rashes or lesions noted Neuro General: patient oriented x3 and no focal motor deficits Cranial nerves: Yes CN's II-XII intact bilaterally Extrem General: Yes normal to inspection, Yes no clubbing, cyanosis or edema and Yes no calf tenderness Psych Appearance: grossly normal and well kempt Speech and movement: Normal speech and movement present Results Reviewed Results Reviewed: Last spirometry in 2021 had shown moderate degree of restrictive pattern but no obstructive pattern Assessment & Plan Assessment & Plan (1) Allergic rhinitis: Comment: ALLERGIC RHINITIS SEEMS TO BE MILD, IT IS NOT ACTIVE AT PRESENT Code(s): J30.9 - Allergic rhinitis, unspecified Category: Medical Plan: USE FLONASE 2 SPRAY IN EACH P.R.N.. PRESCRIPTION RENEWED. (2) Asthma: Comment: HE HAS MILD INTERMITTENT BRONCHOSPASM/ ASTHMA Code(s): J45.909 - Unspecified asthma, uncomplicated Category: Medical Plan: OK TO USE PROAIR 2 PUFFS Q 4-6 HOURS BUT ONLY P.R.N. NEW SCRIPT IS SENT TO THE PHARMACY. Medications: Changed From albuterol sulfate 90 mcg/actuation (ProAir HFA) 2 puffs inhalation Q6H PRN bronchospasm J45.909 - Unspecified asthma, uncomplicated To albuterol sulfate 90 mcg/actuation (ProAir HFA) 2 puffs inhalation Q6H PRN 8.5 grams 3RF bronchospasm 30 days J45.909 - Unspecified asthma, uncomplicated From fluticasone propionate 50 mcg/actuation administer into each nostril 1 spray intranasal DAILY To fluticasone propionate 50 mcg/actuation administer into each nostril 1 spray intranasal DAILY 16 grams 3RF ALL.RHINITIS 30 days Coding Level of Care Code Est Pt Level 3 (52201) Diagnoses Allergic rhinitis J30.9 Asthma J45.909
== END 2024-01-18 09:49 | disposition home or self-care (01) ==
PROVIDERS: PCP Family Medicine; Referring Provider Family Medicine; Visit Provider Internal Medicine
DX: J30.9 Allergic rhinitis, unspecified (principal); J45.909 Unspecified asthma, uncomplicated
CPT/HCPCS: 99213

== ENCOUNTER → 2024-01-18 09:28 | Outpatient (BNVA) | payer MEDICAID, SELFPAY | PROVIDERS: PCP Family Medicine; Visit Provider Internal Medicine | DX: J45.909 Unspecified asthma, uncomplicated (principal) | CPT/HCPCS: 99212 ==

== ENCOUNTER 2024-07-15 10:41 | Outpatient (AMB) | payer MEDICAID, SELFPAY ==
[2024-07-15 11:03] VITALS: BP 110/68; PULSE 70; O2SAT 96; BMI 34.7
--- NOTE | 2024-07-15 11:03 | A.OFFVIS_ITS ---
Vital Signs 07/15/24 11:03 Height 5 ft 7 in Weight 221 lb 9.033 oz BMI 34.7 BP 110/68 Blood Pressure Location Lt brachial Position Sitting Pulse 70 Pulse Source Pulse Oximeter Pulse Oximetry (%) 96 Oxygen Delivery Method Room Air Intake Visit Reasons: Asthma Intake Note: pt is here for follow up and feels good Operational Communication Chief Required: Yes Operational Communication Chief Services: Operational Communication Chief Present Operational Communication Chief Name: grupo (JACK) Allergies No Known Allergies [No Known Allergies*] Allergy (Verified 07/15/24 11:20) Medication List - Last Reconciled 07/15/24 by Sarwat Acosta MD albuterol sulfate mg inhalation QID PRN albuterol sulfate 90 mcg/actuation (ProAir HFA) 2 puffs inhalation Q6H PRN 30 days alcohol swabs (Alcohol Prep Pads) pad topical TID atorvastatin 20 mg PO BEDTIME bisacodyl (Dulcolax (bisacodyl)) 10 mg (2 x 5 mg) PO BEDTIME 2 days blood sugar diagnostic ([employer] Verio test strips) As directed blood-glucose meter ([employer] Verio Flex Meter) As directed bupropion HCl SR 100 mg PO DAILY cyclobenzaprine 10 mg PO DAILY PRN dexlansoprazole (Dexilant) 60 mg PO QAM doxepin 10 mg PO BEDTIME dulaglutide (Trulicity) mg subcut QWEEK epinephrine (EpiPen 2-Fausto) 0.3 mg (0.3 mL) IM Q10M PRN famotidine 40 mg PO BEDTIME fluticasone propion-salmeterol 250-50 mcg/dose (Advair Diskus) 1 ea PO fluticasone propionate 50 mcg/actuation 1 spray intranasal DAILY 30 days gabapentin 300 mg PO BID insulin degludec (Tresiba FlexTouch U-100 insulin) 26 units subcut DAILY lancets ([employer] Delica Plus Lancet) As directed lisinopril 2.5 mg PO DAILY losartan 12.5 mg PO QAM metformin ER 1,000 mg PO oxcarbazepine (Trileptal) 150 mg PO BID peg 3350-electrolytes 236-22.74-6.74 -5.86 gram (Golytely) 240 mL PO Q10M 1 day risperidone 0.5 mg PO BID sucralfate 1 g PO BID trazodone 150 mg PO BEDTIME PRN Do you need a note to return to daycare/school/sports/work: No HPI HPI Asthma: Details: THIS 59 YEARS OLD GENTLEMAN, GREEK-SPEAKING, IS VERY PLEASANT AND IS HERE FOR HIS 4 MONTHS FOLLOW-UP, FOR COPD AND ALLERGIC RHINITIS. HE IS USING HIS INHALER MAINLY WIXELA 250-50 TWICE A DAY, AND NEEDS TO USE ALBUTEROL ONLY. ONCE IN A WHILE BREATHING IS REMAINING VERY STABLE AND CONTROLLED. DENIES COUGH OR WHEEZING. HE DOES GET SHORT OF BREATH WHEN HE WALKS FAST OR CLIMBS STAIRS BUT DOES NOT NEED TO USE THE RESCUE INHALER ALL THE TIMES. HE HAS MILD ALLERGIC RHINITIS CONTROLLED WITH THE USE OF FLONASE PFSH Medical History Asthma Bronchospasm History of dysphagia GERD (gastroesophageal reflux disease) History of Holland's esophagus COPD (chronic obstructive pulmonary disease) Allergic rhinitis Cough Surgical History Hx of abdominal surgery Hx of colonoscopy History of esophagogastroduodenoscopy (EGD) Family History Sister Leukemia Social History Household Members: None Alcohol intake: never Patient Tobacco Use Status: Former Tobacco user Current occupational status: unemployed Review of Systems Const All systems reviewed & are unremarkable except as noted in HPI and below Eyes Reports no additional complaints ENT Reports nasal congestion (Mild off and on especially at night) Card Denies chest pain, Denies irregular heart rhythm and Denies leg edema Resp Reports as per HPI GI Reports heartburn (Intermittent controlled with use of sucralfate and Dexilant) Reports no additional complaints Musc Reports no additional complaints Skin/Breast Reports system reviewed and no additional complaints, except as documented Neuro Reports no additional complaints Psych Reports anxiety (Controlled) Endo Reports no additional complaints Sukhdev/Lymph Reports no additional complaints Physical Exam Vital Signs: Last Vital Signs Pulse 70 07/15/24 11:03 BP 110/68 07/15/24 11:03 Pulse Ox 96 07/15/24 11:03 Oxygen Delivery Method Room Air 07/15/24 11:03 BMI result Body Mass Index 34.7 Const General: healthy appearing (Except for being overweight), comfortable, no acute distress, alert and awake Orientation/consciousness: patient oriented x3 HEENT Head: Yes normal to inspection General nose exam: No nasal polyps present and No nasal discharge present Face and sinus: Yes sinuses nontender Mouth: oropharynx normal Throat: Yes posterior oropharynx normal Eyes General: appearance normal, both eyes and all related structures Neck Neck: Yes normal visual inspection, Yes no lymphadenopathy, Yes trachea midline and Yes no JVD Thyroid: Thyroid normal Chest Chest palpation & inspection: normal inspection of the chest, normal palpation of entire chest wall and no tenderness Resp Effort & Inspection: normal respiratory effort Auscultation: clear to auscultation bilaterally, no crackles and no wheezes Percussion: percussion normal Cardio Palpation: normal PMI Rate: regular rate Rhythm: regular rhythm Heart sounds: no gallops and no murmurs Peripheral pulses: Peripheral pulses 2+ throughout GI Palpation (GI): Soft to palpation, nontender, No hepatosplenomegaly present, no masses and Other GI palpation findings present (Abdomen is obese and slightly protuberant) Auscultation: normal bowel sounds Back/Spine/Pelvis Thoracic/Lumbar Spine: thoracic and lumbar spine normal to inspection Skin General skin exam: no rashes or lesions noted Neuro General: patient oriented x3 and no focal motor deficits Cranial nerves: Yes CN's II-XII intact bilaterally Extrem General: Yes normal to inspection, Yes no clubbing, cyanosis or edema and Yes no calf tenderness Psych Appearance: grossly normal and well kempt Speech and movement: Normal speech and movement present Assessment & Plan Assessment & Plan (1) COPD (chronic obstructive pulmonary disease): Comment: PER SPIROMETRY ,, THERE IS NO EVIDENCE OF COPD . SPIROMETRY SHOWS , MILD RESTRICTIVE DISORDER , WHICH IS EXPECTED BECAUSE OF HIS WEIGHT . Code(s): J44.9 - Chronic obstructive pulmonary disease, unspecified Category: Medical Plan: SEE UNDER BRONCHIAL ASTHMA (2) Allergic rhinitis: Comment: ALLERGIC RHINITIS SEEMS TO BE MILD, IT IS NOT ACTIVE AT PRESENT Code(s): J30.9 - Allergic rhinitis, unspecified Category: Medical Plan: FLONASE-51 INHALATION EACH NOSTRIL DAILY (3) Cough: Comment: HIS COUGH SEEMS TO BE NONSPECIFIC, MAY BE MULTIFACTORIAL, SUCH RELATED TO ALLERGIC RHINITIS, BRONCHOSPASM ( ASTHMA VARIENT ) Code(s): R05 - Cough Category: Medical Plan: USE PROAIR 2 PUFFS PRN FOR ANY PROLONGED BOUTS OF COUGH . AND CONTINUE FLUTICASONE-SALMETEROL 250-50 B.I.D. (4) Asthma: Comment: HE HAS MILD INTERMITTENT BRONCHOSPASM/ ASTHMA , WELL CONTROLLED AT THIS TIME. Code(s): J45.909 - Unspecified asthma, uncomplicated Category: Medical Plan: CONTINUE TO USE FLUTICASONE-SALMETEROL 250-50 1 INHALATION B.I.D.. USE ALBUTEROL HFA 2 PUFFS Q 6 HOURS ONLY P.R.N. Coding Level of Care Code Est Pt Level 3 (32719) Diagnoses COPD (chronic obstructive pulmonary disease) J44.9 Allergic rhinitis J30.9 Cough R05 Asthma J45.909
== END 2024-07-15 11:30 | disposition home or self-care (01) ==
PROVIDERS: PCP Family Medicine; Visit Provider Internal Medicine
DX: J44.9 Chronic obstructive pulmonary disease, unspecified (principal); J30.9 Allergic rhinitis, unspecified; R05.9 Cough, unspecified; J45.909 Unspecified asthma, uncomplicated
CPT/HCPCS: 99213

== ENCOUNTER → 2024-07-15 10:41 | Outpatient (BNVA) | payer MEDICAID, SELFPAY | PROVIDERS: PCP Family Medicine; Visit Provider Internal Medicine | DX: J44.9 Chronic obstructive pulmonary disease, unspecified (principal); J45.909 Unspecified asthma, uncomplicated; R05.9 Cough, unspecified | CPT/HCPCS: 99212 ==

== ENCOUNTER 2024-09-30 11:42 | Outpatient (REF) | payer MEDICAID, SELFPAY ==
--- OUTSIDE RECORDS SUMMARY | 2024-09-30 13:00 | XMS_ITS | Encounter Summary ---
Author Organization [employer] [facility] Address [address] [place] [address] Care Team Providers Care Aoc Director Combat Operations Officer Name Role Phone Samra Marsh MD Primary Care Provider [phone] Francois Rider PharmD Unavailable [phone] Yung Patel RN Unavailable [phone] Encounter Details Date Type Department Care Team (Latest Contact Info) Description 09/14/2018 Abstract [facility]VERSION[facility] Dental, Provider, DDS Social History Tobacco Use Types Packs/Day Years Used Date Smoking Tobacco: Never Assessed Sex and Gender Information Value Date Recorded Sex Assigned at Male 06/20/2022 10:18 AM EDT Legal Sex Male 10:18 AM EDT Gender Identity Male 06/20/2022 10:18 AM EDT Sexual Orientation Choose not to disclose 2021 10:18 AM EDT documented as of this encounter Plan of Treatment Upcoming Encounters Date Type Department Care Team (Late st Contact Info) Description 10/28/2024 10:30 AM EDT Office Visit [facility] [address] [place] [address] Aiden, Dora, OD [address] [place] [address] 01/06/2025 10:00 AM EDT Office Visit [facility] ADULT DENTAL [address] [place] [address] Scottie, Krista [address] [place] [address] documented as of this encounter Visit Diagnoses Not on filedocumented in this encounter Care Teams Aoc Director Combat Operations Officer Relationship Specialty Start Date End Date Samra Marsh MD [address] [place] [address] PCP - General Family Medicine 08/21/18 Francois Rider, Jared [address] [place], [place] [phone] Pharmacist Internal Medicine 12/30/22 Yung Patel, MERVAT [address] [place] [address] Mesh WorkerMeat Hostess 11/20/23 Sharon Perez Community Health Worker Case Management 01/18/24 01/18/24 Brandon Jones Jr Mesh WorkerMeat Hostess 05/10/24 [employer] 06/24/22 documented as of this encounter
--- OUTSIDE RECORDS SUMMARY | 2024-09-30 13:00 | XMS_ITS | Encounter Summary ---
Author Organization [employer] Address [address] [place] [address] Care Team Providers Care Foreman Or Supervisor And Operator Name Role Phone Samra Marsh MD Primary Care Provider [phone] Francois Rider PharmD Unavailable [phone] Yung Patel RN Unavailable [phone] Encounter Details Date Type Department Care Team (Latest Contact Info) Description 11/26/2021 Abstract [facility] CONVERSIONS Dental, Provider, DDS Social History Tobacco [...] Description 10/28/2024 10:30 AM EDT Office Visit [facility] OPTOMETRY [address] [place] [address] Aiden, Dora, OD [address] [place] [address] 01/06/2025 10:00 AM EDT Office Visit [facility] ADULT DENTAL [address] [place] [address] Scottie, Krista [address] [place] [address] documented as of this encounter Visit Diagnoses Not on filedocumented in this encounter Care Teams Foreman Or Supervisor And Operator Relationship Specialty Start Date End Date Samra Marsh MD [address] [place] [address] PCP - General Family Medicine 08/21/18 Francois Rider, Jared [address] [place], [place] [phone] Pharmacist Internal Medicine 12/30/22 Yung Patel, MERVAT [address] [place] [address] Forest Logistics ManagerManager [place] 11/20/23 Sharon Perez Community Health Worker Case Management 01/18/24 01/18/24 Brandon Jones Jr Forest Logistics ManagerManager [place] 05/10/24 [employer] 06/24/22 documented as of this encounter
--- OUTSIDE RECORDS SUMMARY | 2024-09-30 13:00 | XMS_ITS | Encounter Summary ---
Author Organization [employer] Address [address] [place] [address] [address] [place] [address] Care Team Providers Care Folding Machine Operator Name Role Phone Samra Marsh MD Primary Care Provider [phone] Francois Rider PharmD Unavailable [phone] Yung Patel RN Unavailable [phone] Reason for Referral * Consultation (Routine) - Closed Specialty Diagnoses / Procedures Referred By Contac t Referred To Contact Diagnoses Type 2 diabetes mellitus with hyperglycemia, with long-term current use of insulin ([facility]) Primary hypertension Intellectual disability Holland's esophagus without dysplasia Moderate persistent asthma without complication Samra Marsh MD [address] [place] [address] Phone: tel: fax: [address] [address] Phone: tel: fax: Referral ID Status Reason Start Date Expiration Date V isits Requested Visits Authorized [id number] Closed Specialty Services Required 10/25/2023 10/24/2024 1 1 Encounter Details Date Type Department Care Team (Late st Contact Info) Description 10/25/2023 Orders Only [facility] MEDICINE [address] [place], [place] [phone] Samra Marsh MD [address] [place], [place] [phone] Type 2 diabetes mellitus with hyperglycemia, with long-term current use of insulin ([facility]) (Primary Dx); Primary hypertension; Intellectual disability; Holland's esophagus without dysplasia; Moderate persistent asthma without complication Social History Tobacco Use Types Packs/Day Years Used Date Smoking Tobacco: Former Cigarettes Passive Smoke Exposure: Past Smokeless Tobacco: Never Depression Answer Date Recorded Patient Health Questionnaire-9 Score 0 09/08/2022 Housing Stability Answer Date Recorded What is your housing situation today? I have belinda ferdinand 06/06/[address] you li ve. Do you have problems with any of the following? None of the above 06/06/2023 Food Insecurity Answer Date Recorded Within the past 12 months, y ou worried that your food would run out before you got money to buy more: Never True 06/06/2023 Within the past 12 months,th e food you bought just didn't last and you didn't have enough money to get more: Never True Transportation Answer Date Recorded In the past 12 months, has l ack of transportation kept you from medical appts, meetings, work or from getting things needed for daily living? No 06/06/2023 Utilities Answer Date Recorded In the past 12 months, has t he electric, gas, oil or water company threatened to shut off services in your home? No 06/06/2023 Depression Answer Date Recorded Patient Health Questionnaire-2 Score 0 09/08/2022 Sex and Gender Information Value Date Recorded [...] Description 10/28/2024 10:30 AM EDT Office Visit [facility] OPTOMETRY [address] [place] [address] AidenDora crews, OD [address] [place] [address] 01/06/2025 10:00 AM EDT Office Visit [facility] ADULT DENTAL [address] [place] [address] Krista Rubin [address] [place] [address] Scheduled Referrals Name Type Priority Associated Diagnoses Orde r Schedule Referral to Care Management Outpatient Referral Routine Type 2 diabetes mellitus with hyperglycemia, with long-term current use of insulin ([facility]) Primary hypertension Intellectual disability Holland's esophagus without dysplasia Moderate persistent asthma without complication Expected: 10/25/2023 (Approximate), Expires: 10/24/2024 documented as of this encounter Goals Goal Patient Goal Type Associated Problems Recent Progress Patient-Stated? Author Blood Pressure < 140/90 Blood Pressure 145/78(2024 11:16 AM EST) No Francois Rider PharmD Hemoglobin A1c < 7 Result Component 7(08/23/2024 10:15 AM EST) No Francois Rider PharmD documented as of this encounter Visit Diagnoses Diagnosis Type 2 diabetes mellitus with hyperglycemia, with long-term current use of insulin ([facility])- Primary Primary hypertension Unspecified essential hypertension Intellectual disability Unspecified mental retardation Holland's esophagus without dysplasia Moderate persistent asthma without complication documented in this encounter Additional Health Concerns Assessment Noted Time PHQ-9 Depression Total Score: 0 09/08/19 23 9:31 AM EST documented as of this encounter Care Teams Folding Machine Operator Relationship Specialty Start Date End Date Samra Marsh MD [address] [place] [phone] PCP - General Family Medicine 08/21/18 Francois Rider, PharmD [address] [place] [phone] Pharmacist Internal Medicine 12/30/22 Yung Patel, MERVAT [address] [place] [phone] Vice President Industrial RelationsAutomation Engineering Technician 11/20/23 Sharon Perez Community Health Worker Case Management 01/18/24 01/18/24 Brandon Jones Jr Vice President Industrial RelationsAutomation Engineering Technician 05/10/24 [employer] 06/24/22 documented as of this encounter
--- OUTSIDE RECORDS SUMMARY | 2024-09-30 13:01 | XMS_ITS | Encounter Summary ---
Author Organization [employer] Address [address] [place] [address] Care Team Providers Care Manganese Wheeler Name Role Phone Samra Marsh MD Primary Care Provider [phone] Francois Rider PharmD Unavailable [phone] Yung Patel RN Unavailable [phone] Reason for Visit * Reason Onset Date Comments chart prep 09/25/2024 Encounter Details Date Type Department Care Team (Late st Contact Info) Description 09/25/2024 Telephone [facility] [address] [place] [address] Claudette Patel MA chart prep Social History Tobacco Use Types Packs/Day Years Used Date Smoking Tobacco: Former Cigarettes Passive Smoke Exposure: Past Smokeless Tobacco: Never Alcohol Use Standard Drinks/Week Comments Defer 0 (1 standard drink = 0.6 oz pur e alcohol) Depression Answer Date Recorded Patient Health Questionnaire-9 Score 0 09/08/2022 Housing Stability Answer Date Recorded What is your housing situation today? I have belinda streeter 11/23/[address] you li ve. Do you have problems with any of the following? None of the above 11/23/2023 Food Insecurity Answer Date Recorded Within the past 12 months, y ou worried that your food would run out before you got money to buy more: Sometimes True 2023 Within the past 12 months,th e food you bought just didn't last and you didn't have enough money to get more: Sometimes True 11/23/2023 Transportation Answer Date Recorded In the past 12 months, has l ack of transportation kept you from medical appts, meetings, work or from getting things needed for daily living? Yes, it has kept me from medical appointments or getting medications. 11/23/2023 Utilities Answer Date Recorded In the past 12 months, has t he electric, gas, oil or water company threatened to shut off services in your home? No 11/23/2023 Depression Answer Date Recorded Patient Health Questionnaire-2 Score 0 09/08/2022 Sex and Gender Information Value Date Recorded Sex Assigned at Male 06/20/2022 10:18 AM EDT Legal Sex Male 10:18 AM EDT Gender Identity Male 06/20/2022 10:18 AM EDT Sexual Orientation Choose not to disclose 2021 10:18 AM EDT documented as of this encounter Miscellaneous Notes * Telephone Encounter - Claudette Patel MA - 09/25/2024 3:08 PM EST .Chart Prep Labs: not done 05/10/24 Images: not applicable Vaccines due: Covid Due Referrals: Completed Screenings: Eye Exam and Foot Exam Overdue care gaps: Glucose phq9-oral health -milagros-7 documented in this encounter Plan of Treatment Upcoming Encounters Date Type Department Care Team (Late st Contact Info) Description 10/28/2024 10:30 AM EDT Office Visit [facility] OPT[facility] [address] [place] [address] Aiden, Dora, OD [address] [place] [address] 01/06/2025 10:00 AM EDT Office Visit [facility] ADULT DENTAL [address] [place] [address] Scottie, Krista [address] [place] [address] documented as of this encounter Goals Goal Patient Goal Type Associated Problems Recent Progress Patient-Stated? Author Blood Pressure < 140/90 Blood Pressure 145/78(2024 11:16 AM EST) No Francois Rider PharmNick Hemoglobin A1c < 7 Result Component 7(08/23/2024 10:15 AM EST) No Rider, Francois, PharmD documented as of this encounter Visit Diagnoses Not on filedocumented in this encounter Additional Health Concerns Assessment Noted Time PHQ-9 Depression Total Score: 0 09/08/19 9:31 AM EST documented as of this encounter Care Teams Manganese Wheeler Relationship Specialty Start Date End Date Samra Marsh MD [address] [place] [address] PCP - General Family Medicine 08/21/18 Francois Rider, PharmD [address] [place] [address] Pharmacist Internal Medicine 12/30/22 Yung Patel, MERVAT [address] [place] [id number] Warehouse SpecialistDate Night Caregiver 11/20/23 Brandon Jones Jr Warehouse SpecialistDate Night Caregiver 05/10/24 [employer] 06/24/22 documented as of this encounter
--- OUTSIDE RECORDS SUMMARY | 2024-09-30 13:01 | XMS_ITS | Encounter Summary ---
Author Organization [employer] Address [address] [facility] [address] [place] [address] Care Team Providers Care Production Helper Name Role Phone Samra Marsh MD Primary Care Provider [phone] Francois Rider PharmD Unavailable [phone] Yung Patel RN Unavailable [phone] Reason for Visit * Reason Comments Med Refill Encounter Details Date Type Department Care Team (Late st Contact Info) Description 04/04/2024 Refill [facility] [address] [place], [place] [phone] Samra Marsh MD [address] [place], [place] [phone] Diabetic polyneuropathy associated with type 2 diabetes mellitus (CMS/HCC) Social History Tobacco Use Types Packs/Day Years [...] Description 10/28/2024 10:30 AM EDT Office Visit [facility] OPTOMETRY [address] [place] [address] Aiden, Dora, OD [address] [place] [address] 01/06/2025 10:00 AM EDT Office Visit [facility] ADULT DENTAL [address] [place] [address] Scottie, Krista [address] [place] [address] documented as of this encounter Goals Goal Patient Goal Type Associated Problems Recent Progress Patient-Stated? Author Blood Pressure < 140/90 Blood Pressure 145/78(2024 11:16 AM EST) No Francois Rider, PharmD Hemoglobin A1c < 7 Result Component 7(08/23/2024 10:15 AM EST) No Francois Rider PharmD documented as of this encounter Visit Diagnoses Diagnosis Diabetic polyneuropathy associated with type 2 diabetes mellitus (CMS/HCC) documented in this encounter Additional Health Concerns Assessment Noted Time PHQ-9 Depression Total Score: 0 09/08/19 23 9:31 AM EST documented as of this encounter Care Teams Production Helper Relationship Specialty Start Date End Date Samra Marsh MD [address] [place] [address] PCP - General Family Medicine 08/21/18 Francois Rider, Jared [address] [place] [address] Pharmacist Internal Medicine 12/30/22 Yung Patel, MERVAT [address] [place] [phone] Community Mental Health WorkerVisual Effects Artist 11/20/23 Brandon Jones Jr Community Mental Health WorkerVisual Effects Artist 05/10/24 [employer] 06/24/22 documented as of this encounter
--- OUTSIDE RECORDS SUMMARY | 2024-09-30 13:01 | XMS_ITS | Encounter Summary ---
Author Organization [employer] Address [address] [facility] [address] [place] [address] Care Team Providers Care Contract Mail Carrier Name Role Phone Samra Marsh MD Primary Care Provider Francois Rider PharmD Unavailable Yung Patel RN Unavailable [phone] Encounter Details Date Type Department Care Team (Late st Contact Info) Description 04/27/2023 Telephone [facility] MED[facility]INE [address] [place], [place] [phone] Samra Marsh MD [address] [place], [place] [phone] Social History Tobacco Use Types Packs/Day Years Used Date Smoking Tobacco: Former Cigarettes Passive Smoke Exposure: Past Smokeless Tobacco: Never Depression Answer Date Recorded Patient Health Questionnaire-9 Score 0 09/08/2022 Depression Answer Date Recorded Patient Health Questionnaire-2 Score 0 09/08/2022 Sex and Gender Information Value Date Recorded Sex Assigned at Male 06/20/2022 10:18 AM EDT Legal Sex Male 10:18 AM EDT Gender Identity Male 06/20/2022 10:18 AM EDT Sexual Orientation Choose not to disclose 2021 10:18 AM EDT documented as of this encounter Miscellaneous Notes * Telephone Encounter - Stephany Herrera - 04/27/2023 1:25 PM EDT Tc from [facility] Visiting nurse requesting to speak directly pt pcp . States would like to discuss today visit and also pt sensor and medications . Best contact number [phone]. documented in this encounter Plan of Treatment Upcoming Encounters Date Type Department Care Team (Late st Contact Info) Description 10/28/2024 10:30 AM EDT Office Visit [facility] OPTOMETRY [address] [place] [address] AidenDora crews, OD [address] [place] [address] 01/06/2025 10:00 AM EDT Office Visit [facility] ADULT DENTAL [address] [place] [address] Scottie, Krista [address] [place] [address] documented as of this encounter Goals Goal [...] documented as of this encounter Care Teams Contract Mail Carrier Relationship Specialty Start Date End Date Samra Marsh MD [address] [place] [address] PCP - General Family Medicine 08/21/18 Francois Rider, PharmD [address] [place] [address] Pharmacist Internal Medicine 12/30/22 Yung Patel, MERVAT [address] [place] [id number] Family Nurse PractitionerFranchise Sales Manager 11/20/23 Sharon Perez Community Health Worker Case Management 01/18/24 01/18/24 Brandon Jones Jr Family Nurse PractitionerFranchise Sales Manager 05/10/24 [employer] 06/24/22 documented as of this encounter
--- OUTSIDE RECORDS SUMMARY | 2024-09-30 13:01 | XMS_ITS | Clinical Summary ---
Author Organization [employer] Address [address] [place] [address] Care Team Providers Care Optical Engineer Name Role Phone Samra Marsh MD Primary Care Provider [phone] Francois Rider PharmD Unavailable [phone] Yung Patel RN Unavailable Allergies Active Allergy Reactions Criticality Noted Date Comments Shellfish-Derived Products High 1 Medications ProAir HFA 108 (90 Base) MCG/ACT inhaler Inhale 2 puffs every 4 (four) hours if needed for shortness of breath or wheezing. 05/06/20 22 Active buPROPion SR (Wellbutrin SR) 100 MG 12 hr tablet Take 1 tablet by mouth at bed time. Active Dexilant [address] capsule Take 1 capsule by mouth in the morning. 06/27/20 22 Active EPINEPHrine (Epipen) 0.3 MG/0.3ML injection syringe Inject 0.3 mg as directed 1 (one) time if needed for allergies or anaphylaxis. 04/07/20 22 Active OXcarbazepine (Trileptal) 150 MG tablet Take 1 tablet by mouth in the morning and at bedtime. Active risperiDONE (RisperDAL) 0.5 MG tablet Take 1 tablet by mouth Once per day. At bedtime Active sucralfate (Carafate) 1 g tablet Take 1 tablet by mouth every 12 (twelve) hours. Active doxepin (SINEquan) 10 MG capsule TAKE 1 CAPSULE BY MOUTH AT BEDTIME FOR SLEEP 08/18/20 22 Active famotidine (Pepcid) 40 MG tablet TAKE 1 TABLET BY MOUTH AT BEDTIME 90 tablet 3 06/30/20 23 Active Advair Diskus 250-50 MCG/ACT aerosol powder INHALE 1 PUFF BY MOUTH TWICE DAILY IN THE MORNING AND IN THE EVENING (APPROXIMATELY 12 HOURS APART) RINSE MOUTH AFTER USING. 60 each 11 11/28/19 24 Active atorvastatin (Lipitor) 20 MG tablet TAKE 1 TABLET BY MOUTH AT BEDTIME 90 tablet 3 03/19/20 24 Active metFORMIN XR (Glucophage-XR) 500 MG 24 hr tablet TAKE 2 TABLETS BY MOUTH TWICE DAILY IN THE MORNING AND AT BEDTIME 360 tablet 3 03/19/20 24 Active Acetaminophen Extra Strength 500 MG tabletIndications: Acute right-sided low back pain without sciatica Take 1,000 mg by mouth every 8 (eight) hours if needed (pain). No more than 6 tabs per day 60 tablet 03/22/20 24 Active aspirin (Aspirin Low Dose) 81 MG EC tabletIndications: Uncontrolled type 2 diabetes mellitus with hyperglycemia (CMS/HCC) TAKE 1 TABLET BY MOUTH EVERY MORNING 90 tablet 3 04/30/20 24 Active dulaglutide (Trulicity) 3 MG/0.5ML solution pen-injectorIndica tions:Type 2 diabetes mellitus with hyperglycemia, with long-term current use of insulin (CMS/[facility]) INJECT ONE PEN (= 3MG) SUBCUTANEOUSLY ONCE A WEEK DIRECTED 2 mL 5 05/10/20 24 Active losartan (Cozaar) 25 MG tabletIndications: Primary hypertension Take 1 tablet by mouth once daily 90 tablet 1 05/10/20 24 Active glucose blood (FREESTYLE LITE) test stripIndications:T ype 2 diabetes mellitus with hyperglycemia, with long-term current use of insulin (CMS/[facility]) Use to test blood sugar 3 times daily 100 each 05/10/20 24 025 Active Lancets miscIndications:Ty pe 2 diabetes mellitus with hyperglycemia, with long-term current use of insulin (CMS/[facility]) Use to test blood sugar 3 times daily 100 each 05/10/20 24 Active Blood Glucose Monitoring Suppl (FreeStyle [place] Lite) w/Device kitIndications:Typ e 2 diabetes mellitus with hyperglycemia, with long-term current use of insulin (CMS/[facility]) Use to test blood sugar 3 times daily 1 kit 05/10/20 24 Active pen needle 31G x 5 mm miscIndications:Ty pe 2 diabetes mellitus with hyperglycemia, with long-term current use of insulin ([facility]/HCC) Use to inject insulin once daily 100 each 3 05/14/20 24 025 Active insulin degludec (Tresiba FlexTouch) 100 UNIT/ML injectionIndicatio ns:Type 2 diabetes mellitus with hyperglycemia, with long-term current use of insulin (CMS/HCC) Administer 26 units once a day. 15 mL 5 06/14/20 24 Active UltiCare Alcohol Swabs 70 % padsIndications:Ty pe 2 diabetes mellitus with hyperglycemia (CMS/HCC) Use topically four times daily to check blood glucose and with insulin. 100 each 11 06/14/20 24 Active fluticasone (Flonase) 50 MCG/ACT nasal spray INSTILL 1 SPRAY IN EACH NOSTRIL ONCE DAILY 48 g 07/15/20 24 Active gabapentin (Neurontin) 300 MG capsuleIndications :Diabetic polyneuropathy associated with type 2 diabetes mellitus (CMS/HCC) TAKE 1 CAPSULE BY MOUTH TWICE DAILY IN THE MORNING AND AT BEDTIME 60 capsule 3 08/05/20 24 Active Active Problems Problem Noted Date Diagnosed Date Dental plaque 11/24/2023 Dental caries 11/24/2023 Diabetic peripheral neuropathy 01/24/2023 Assessment & Plan (2023 4:32 AM EDT): - written script for diabetic footwear in January 2023 - He denies Foot exam at today's visit Assessment & Plan (01/24/2023 10:15 AM EDT): - will write diabetic footwear Anaphylaxis 09/08/2022 Overview (09/08/2022): Patient with severe anaphylaxis and respiratory distress, 07/2021. Denies history of anaphylaxis. Oxygen saturation remained >95% throughout visit. Shellfish allergy 09/08/2022 Overview (09/08/2022): Reviewed avoidance of allergen he was taught how to use Epipen, knows to call 911 if he uses it continue prednisone fro 3 more days f/u as needed for any acute concerns, routine care with PCP Holland's esophagus without dysplasia 07/28/2022 Assessment & Plan (11/24/2023 9:24 AM EDT): GI, [facility], seen on 05/25/22. 2018 EGD showed Holland's esophagus 2021 EGD no metaplasia Continue Dexilant, famotidine, and sucralfate as prescribed by GI Will check the status of next GI appointment Assessment & Plan (04/27/2023 11:44 AM EDT): ?? GI, [facility], seen on 05/25/22. ?? 2017 EGD showed Holland's esophagus ?? 2021 EGD no metaplasia ?? Continue Dexilant, famotidine, and sucralfate as prescribed by GI Assessment & Plan (01/24/2023 10:16 AM EDT): ?? GI, [facility], seen on 05/25/22. ?? 2017 EGD showed Holland's esophagus ?? 2021 EGD no metaplasia ?? Continue Dexilant, famotidine, and sucralfate as prescribed by GI Assessment & Plan (10/19/2022 12:55 PM EST): ?? GI, [facility], seen on 05/25/22. ?? 2017 EGD showed Holland's esophagus ?? 2021 EGD no metaplasia ?? Continue Dexilant, famotidine, and sucralfate as prescribed by GI Assessment & Plan (09/15/2022 4:23 AM EST): ?? GI, [facility], seen on 05/25/22. ?? 2017 EGD showed Holland's esophagus ?? 2021 EGD no metaplasia ?? Continue Dexilant, famotidine, and sucralfate as prescribed by GI Assessment & Plan (09/08/2022 9:43 AM EST): -seen by GI on 11/15/21 Assessment & Plan (07/28/2022 3:58 PM EST): ?? GI, [facility], seen on 05/25/22. ?? 2017 EGD showed Holland's esophagus ?? 2021 EGD no metaplasia ?? Continue Dexilant, famotidine, and sucralfate as prescribed by GI Intellectual disability 07/28/2022 Assessment & Plan (04/27/2023 11:46 AM EDT): ?? Receiving visiting nurse service to assist in diabetes care Assessment & Plan (01/24/2023 10:17 AM EDT): ?? Receiving visiting nurse service to assist in diabetes care Assessment & Plan (09/24/2022 9:43 PM EST): ?? Receiving visiting nurse service to assist in diabetes care Assessment & Plan (07/28/2022 3:58 PM EST): ?? Receiving visiting nurse service to assist in diabetes care Primary hypertension 07/28/2022 Assessment & Plan (11/24/2023 9:16 AM EDT): Goal BP < 140/90 per JNC-8 and < 130/80 per ACC/AHA guideline BP at goal Co-managed with our pharmacist through [facility] Treatment Hx: Lisinopril was switched to losartan due to cough Continue current lifestyle modifications Continue current medication Losartan 12.5 mg daily Follow up in 3-6 mo, sooner if any problem arises Assessment & Plan (04/27/2023 2:12 PM EDT): ? ? Goal BP < 140/90 per JNC-8 and < 130/80 per ACC/AHA guideline ? ? BP not at goal ? ? Co-managed with our pharmacist through [facility] ? ? Treatment Hx: Lisinopril was switched to losartan due to cough ? ? Continue current lifestyle modifications ? ? Continue current medication o Losartan 12.5 mg daily ? ? Follow up in 3-6 mo, sooner if any problem arises Assessment & Plan (01/24/2023 10:16 AM EDT): ? ? Goal BP < 140/90 per JNC-8 and < 130/80 per ACC/AHA guideline ? ? BP at goal ? ? Treatment Hx: Lisinopril was switched to losartan due to cough ? ? Continue current lifestyle modifications ? ? Continue current medication o Losartan 12.5 mg daily ? ? Follow up in 3-6 mo, sooner if any problem arises Assessment & Plan (10/19/2022 12:55 PM EST): ? ? Goal BP < 140/90 per JNC-8 and < 130/80 per ACC/AHA guideline ? ? BP within acceptable range ? ? Treatment Hx: Lisinopril was switched to losartan due to cough ? ? Continue current lifestyle modifications ? ? Continue current medication o Losartan 12.5 mg daily ? ? Follow up in 3-6 mo, sooner if any problem arises Assessment & Plan (09/15/2022 4:23 AM EST): ? ? Goal BP < 140/90 per JNC-8 and < 130/80 per ACC/AHA guideline ? ? BP at goal ? ? Treatment Hx: Lisinopril was switched to losartan due to cough ? ? Continue current lifestyle modifications ? ? Continue current medication o Losartan 12.5 mg daily ? ? Follow up in 3-6 mo, sooner if any problem arises Assessment & Plan (09/08/2022 9:42 AM EST): Goal home BP < 130/80, goal office BP < 140/90 -Continue working on lifestyle modifications -Continue losartan 12.5 mg --Treatment Hx: -prev on Lisinopril and switched to Losartan d/t cough Assessment & Plan (07/28/2022 4:01 PM EST): ? ? Goal BP < 140/90 per JNC-8 and < 130/80 per ACC/AHA guideline ? ? BP at goal ? ? Treatment Hx: Lisinopril was switched to losartan due to cough ? ? Continue current lifestyle modifications ? ? Continue current medication o Losartan 12.5 mg daily ? ? Follow up in 3-6 mo, sooner if any problem arises Type 2 diabetes mellitus 12/12/2018 Assessment & Plan (11/24/2023 11:42 AM EDT): Dx November 2018 Hgb A1C 6.9% on 09/01/23 Co-managed with our pharmacist through [facility] Continue working on lifestyle modifications Continue checking BG. Glucose monitoring system - Freestyle Lite, will switch to Freestyle Rafael. Continue metformin ER 1000 mg bid Continue Trulicity 1.5 mg weekly. Consider increasing to 3.0 mg wkly if A1C > 7% at next visit. Continue basal insulin Tresiba. Currently at 26 units daily. Discontinued bolus insulin in 2022. Peviously on Humalog 5 units with each meal (only twice a day due to visiting nurse availability). Pt does not eat on regular schedule and requires visiting nurse to administer insulin. Pt needs a visiting nurse for diabetic management since he has low health literacy. He does not know numbers or letters. Microalbumin test: 05/05/22 UACR 29 Lipid profile: 09/08/22 TC 163; TG 131; HDL 55; LDL 85 Diabetic eye exam: 06/20/22, [facility], no diabetic retinopahy Foot exam: 01/24/23 Severe callous. Will write diabetic footwear Follow-up in 3 mo or sooner prn Assessment & Plan (08/03/2023 6:24 AM EST): ?? Dx November 2018 ?? Hgb A1C 8.0% on 04/17/23, stable from 8.1% on 01/24/23 ?? Co-managed with our pharmacist through [facility] ?? Continue working on lifestyle modifications ?? Continue checking BG. Glucose monitoring system - Freestyle Lite, will switch to Freestyle Rafael. ?? Continue metformin ER 1000 mg bid ?? Continue Trulicity 1.5 mg weekly ?? Continue basal insulin Tresiba. Currently at 30 units daily. ?? Discontinued bolus insulin in 2022. Peviously on Humalog 5 units with each meal (only twice a day due to visiting nurse availability). Pt does not eat on regular schedule and requires visiting nurse to administer insulin. ?? Pt needs a visiting nurse for diabetic management since he has low health literacy. He does not know numbers or letters. ?? Microalbumin test: 05/05/22 UACR 29 ?? Lipid profile: 09/08/22 TC 163; TG 131; HDL 55; LDL 85 ?? Diabetic eye exam: 06/20/22, [facility], no diabetic retinopahy ?? Foot exam: 01/24/23 Severe callous. Will write diabetic footwear ?? Follow-up in 3 mo or sooner prn Assessment & Plan (04/27/2023 2:16 PM EDT): ?? Dx November 2018 ?? Hgb A1C 8.0% on 04/17/23, stable from 8.1% on 01/24/23 ?? Co-managed with our pharmacist through [facility] ?? Continue working on lifestyle modifications ?? Continue checking BG. Glucose monitoring system - Freestyle Lite, will switch to Freestyle Rafael. ?? Continue metformin ER 1000 mg bid ?? Continue Trulicity 1.5 mg weekly ?? Continue basal insulin Tresiba. Currently at 30 units daily. ?? Discontinued bolus insulin in 2022. Peviously on Humalog 5 units with each meal (only twice a day due to visiting nurse availability). Pt does not eat on regular schedule and requires visiting nurse to administer insulin. ?? Pt needs a visiting nurse for diabetic management since he has low health literacy. He does not know numbers or letters. ?? Microalbumin test: 05/05/22 UACR 29 ?? Lipid profile: 09/08/22 TC 163; TG 131; HDL 55; LDL 85 ?? Diabetic eye exam: 06/20/22, [facility], no diabetic retinopahy ?? Foot exam: 01/24/23 Severe callous. Will write diabetic footwear ?? Follow-up in 3 mo or sooner prn Assessment & Plan (01/24/2023 10:14 AM EDT): ?? Dx November 2018 ?? Hgb A1C 8.1% on 01/24/23, improving ?? Continue working on lifestyle modifications ?? Continue checking BG. Glucose monitoring system - Freestyle Lite, will switch to Freestyle Rafael. ?? Continue metformin ER 1000 mg bid ?? Continue basal insulin Tresiba, will adjust its dose since we are increasing Trulicity, but will check with visiting nurse his current dose. ?? Discontinue bolus insulin, previously on Humalog 5 units with each meal (only twice a day due to visiting nurse availability). Pt does not eat on regular schedule ?? Increase Trulicity 1.5 mg weekly ?? Pt needs a visiting nurse for diabetic management since he has low health literacy. He does not know numbers or letters. ?? Microalbumin test: 05/05/22 UACR 29 ?? Lipid profile: 09/08/22 TC 163; TG 131; HDL 55; LDL 85 ?? Diabetic eye exam: 06/20/22, [facility], no diabetic retinopahy ?? Foot exam: 01/24/23 Severe callous. Will write diabetic footwear ?? Follow-up in 3 mo or sooner prn ?? Co-managed with our pharmacist Assessment & Plan (10/19/2022 12:54 PM EST): ?? Dx November 2018 ?? Hgb A1C 11.7% on 10/19/22, improving ?? Continue working on lifestyle modifications ?? Continue checking BG ?? Continue metformin ER 1000 mg bid ?? Continue basal insulin Tresiba 30 units subcutaneously once daily ?? Continue bolus insulin Humalog 5 units with each meal (only twice a day due to visiting nurse availability). ?? Continue Trulicity 0.75 mg weekly ?? Pt needs a visiting nurse for diabetic management since he has low health literacy. He does not know numbers or letters. ?? Microalbumin test: 05/05/22 UACR 29 ?? Lipid profile: 09/08/22 TC 163; TG 131; HDL 55; LDL 85 ?? Diabetic eye exam: 06/20/22, [facility], no diabetic retinopahy ?? Foot exam: 10/14/20. Pt declines foot exam today ?? Follow-up in 1-2 mo or sooner prn ?? Pt will benefit from CGM. Assessment & Plan (09/24/2022 9:45 PM EST): ?? Dx November 2018 ?? Hgb A1C 14% on 09/08/22 ?? Continue working on lifestyle modifications ?? Continue checking BG ?? Continue metformin ER 1000 mg bid ?? Continue basal insulin, on titration schdule Tresiba 30 units subcutaneously once daily, increase 2 units every Monday until FBG < 130 ?? Add bolus insulin, Novolog 5 units with each meal (only twice a day due to visiting nurse availability). ?? Add Trulicity 0.75 mg weekly ?? Pt needs a visiting nurse for diabetic management since he has low health literacy. He does not know numbers or letters. ?? Microalbumin test: 05/05/22 UACR 29 ?? Lipid profile: 09/08/22 TC 163; TG 131; HDL 55; LDL 85 ?? Diabetic eye exam: 06/20/22, [facility], no diabetic retinopahy ?? Foot exam: 10/14/20. Pt declines foot exam today ?? Follow-up in 1-2 mo or sooner prn ?? Pt will benefit from CGM. Assessment & Plan (09/08/2022 9:41 AM EST): Will switch pt to Tresiba vs Lantus for longer duration of coverage so hopefully missed doses will have less of an impact on overall BG Cont metformin 1G BID Increase basal insulin to 12 units daily Will let [facility] know checking A1c today even though early to see if there's any movement since 04/2022 He writes down numbers (or his mom does I think as pt can write his name but I don't think #'s) Lin Rodneyberna agrees to outreach pt for insulin teaching, I am hopeful pt can learn to admin insulin on Sundays if no VNA visit. Assessment & Plan (07/28/2022 3:51 PM EST): ?? Dx November 2018 ?? Hgb A1C 15% today, 12% in Apr 2022 ?? Continue working on lifestyle modifications ?? Continue checking BG ?? Continue metformin ER 1000 mg bid ?? Increase Tresiba 14 units subcutaneously once daily, increase 2 units every Monday until FBG < 140. ?? Pt needs a visiting nurse for diabetic management since he has low health literacy. He does not know numbers or letters. ?? Microalbumin test: 05/05/22 UACR 29 ?? Lipid profile: 05/05/22 TC 248; TG 352; HDL 47; LDL 147 ?? Diabetic eye exam: 06/20/22, [facility], no diabetic retinopahy ?? Foot exam: 10/14/20. Pt declines foot exam today Sacroiliac joint dysfunction of left side 2016 Moderate persistent asthma 07/07/2015 Assessment & Plan (11/24/2023 9:34 AM EDT): Flexographic Press Operator: Dr. 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 Flexographic Press Operator: Dr. Acosta, last seen on 09/27/21 ?? 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 Last exacerbation > 1 year ago ?? Continue Advair and Singulair as maintenance ?? Continue albuterol HFA outside and neb at home prn ?? Pt reports nebulizer treatment is more effective than inhaler ?? Follow up in 3-6 mo sooner if any problem arises ?? Keep immunizations up to date Assessment & Plan (01/24/2023 10:15 AM EDT): ?? Flexographic Press Operator: Dr. Acosta, last seen on 09/27/21 ?? 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 Last exacerbation > 1 year ago ?? Continue Advair and Singulair as maintenance ?? Continue albuterol HFA outside and neb at home prn ?? Pt reports nebulizer treatment is more effective than inhaler ?? Follow up in 3-6 mo sooner if any problem arises ?? Keep immunizations up to date Assessment & Plan (10/19/2022 12:55 PM EST): ?? Flexographic Press Operator: Dr. Acosta, last seen on 09/27/21 ?? 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 Last exacerbation > 1 year ago ?? Continue Advair and Singulair as maintenance ?? Continue albuterol HFA outside and neb at home prn ?? Pt reports nebulizer treatment is more effective than inhaler ?? Follow up in 3-6 mo sooner if any problem arises ?? Keep immunizations up to date Assessment & Plan (09/15/2022 4:22 AM EST): ?? Flexographic Press Operator: Dr. Acosta, last seen on 09/27/21 ?? 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 Last exacerbation > 1 year ago ?? Continue Advair and Singulair as maintenance ?? Continue albuterol HFA outside and neb at home prn ?? Pt reports nebulizer treatment is more effective than inhaler ?? Follow up in 3-6 mo sooner if any problem arises ?? Keep immunizations up to date Assessment & Plan (09/08/2022 9:42 AM EST): Seen by Flexographic Press Operator on 09/27/21, persistent cough. -PFT 11/21/18: mild restrictive pulmonary disorder without obstructive disorder -CXR shows atelectasis -Abnormal lung exam including baseline crackles -Continue Advair and Singulair as maintenance -Continue albuterol HFA outside and neb at home prn as rescue -Pt reports nebulizer treatment is more effective than inhaler. Schedule for COVID vaccine Re-refer to Dr. Acosta, valet service attendant Assessment & Plan (07/28/2022 3:55 PM EST): ?? Flexographic Press Operator: Dr. Acosta, last seen on 09/27/21 ?? 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 Last exacerbation > 1 year ago ?? Continue Advair and Singulair as maintenance ?? Continue albuterol HFA outside and neb at home prn ?? Pt reports nebulizer treatment is more effective than inhaler ?? Follow up in 3-6 mo sooner if any problem arises ?? Keep immunizations up to date Allergic rhinitis 07/26/2012 Assessment & Plan (04/27/2023 11:43 AM EDT): - continue cetirizine, montelukast, and fluticasone nasal Assessment & Plan (09/15/2022 4:33 AM EST): - continue cetirizine, montelukast, and fluticasone nasal Gastroesophageal reflux disease 07/26/2012 Assessment & Plan (11/24/2023 9:24 AM EDT): - [place] with [facility] - Continue Dexilant, famotidine, and sucralfate - Avoid NSAIDs Assessment & Plan (09/15/2022 4:25 AM EST): - Following with [facility] - Continue Dexilant, famotidine, and sucralfate - Avoid NSAIDs Assessment & Plan (09/08/2022 9:45 AM EST): Seen by GI on 04/14/19 Continue PPI / H2 nimisha as prescribed by GI Avoid NSAIDs. Foot pain 07/26/2012 Hypertriglyceridemia 07/26/2012 Assessment & Plan (04/27/2023 11:45 AM EDT): -Last fasting lipid profile: 09/08/22 TC 163; TG 131; HDL 55; LDL 85 -Current medication: Atorvastatin 20 mg daily -Continue current moderate intensity statin therapy Assessment & Plan (09/15/2022 4:22 AM EST): -Last fasting lipid profile: 09/08/22 TC 163; TG 131; HDL 55; LDL 85 -Current medication: Atorvastatin 20 mg daily -Continue current moderate intensity statin therapy Assessment & Plan (09/08/2022 9:45 AM EST): Current medication: not on statin yet 11/28/18 TC 211; TG 172; HDL 53; LDL 124 According to 2013 ACC/AHA guideline, 10-year ASCVD risk is <7.5 %, yet he is recommended to take statin since he has DM. We will discuss about statin therapy at next visit since we are uncertain about his psych and GI meds at this time Severe mood disorder with psychotic features 01/2012 Assessment & Plan (04/27/2023 11:48 AM EDT): - [facility] providers: [facility] / [facility]. Psychiatrist: Dr. Maier - Current medications: oxcarbazepine; risperidone; bupropion; trazodone - Previous medications: Quetiapine, zolpidem, Valproic acid - pt has visiting nurse. Referred to care management in the past. The program was ended. Assessment & Plan (01/24/2023 10:17 AM EDT): - [facility] providers: [facility] / [facility]. Psychiatrist: Dr. Maier - Current medications: oxcarbazepine; risperidone; bupropion; trazodone - Previous medications: Quetiapine, zolpidem, Valproic acid - pt has visiting nurse. Referred to care management in the past. The program was ended. Assessment & Plan (10/19/2022 12:59 PM EST): - [facility] providers: [facility] / [facility]. Psychiatrist: Dr. Maier - Current medications: oxcarbazepine; risperidone; bupropion; trazodone - Previous medications: Quetiapine, zolpidem, Valproic acid - pt will benefit from having CAREER TECHNOLOGY TEACHER and/or visiting nurse service - pt will benefit from having long-term care management Assessment & Plan (09/08/2022 9:44 AM EST): [facility] providers: [facility] / [facility]. Psychiatrist: Dr. Maier Current medications?: Seroquel XR 100 mg qhs and 25mg prn, Wellbutrin 150 mg qam -Discontinued zolpidem and Valproic acid -pt will benefit form having CAREER TECHNOLOGY TEACHER to organize his medical appt's Resolved Problems Problem Noted Date Diagnosed Date Resolved Date Asthma 02/23/2012 09/08/2022 Encounters Date Type Department Care Team Description 09/30/2024 11:15 AM EST Office Visit [facility] [address] [place] [id number] Samra Marsh MD Type 2 diabetes mellitus with hyperglycemia, with long-term current use of insulin ([facility]) (Primary Dx); Holland's esophagus without dysplasia; Primary hypertension; Moderate persistent asthma without complication; Need for COVID-19 vaccine 09/30/2024 Travel 09/25/2024 Telephone [facility] [address] [place] [address] Claudette Patel MA chart prep 08/28/2024 9:00 AM EST Office Visit [facility] ADULT DENTAL [address] [place] [address] Kee Waller DDS Dental caries (Primary Dx) 08/23/2024 Travel 08/04/2024 Refill [facility] [address] [place] [address] Samra Marsh MD Diabetic polyneuropathy associated with type 2 diabetes mellitus ([facility]) 08/01/2024 Telephone [facility] [address] [place] [address] Claudette Patel MA august recall 07/29/2024 9:30 AM EST Office Visit [facility] ADULT DENTAL [address] [place] [address] Kee Waller DDS Dental caries (Primary Dx) 07/15/2024 Refill [facility] [address] [place] [address] Samra Marsh MD 07/05/2024 1:00 PM EST Office Visit [facility] ADULT DENTAL [address] [place] [address] Krista Rubin Dental plaque (Primary Dx); Localized gingival recession from Last 3 Months Immunizations Name Administration Dates Next Due Hep A, Adult 01/17/2013,03/21/2007 Hep B, adult 12/22/2014,01/17/2013,03/21/2007 Influenza High-dose Quadriva lent Preservative Free 04/27/2023 Influenza injectable quadriv alent IIV4 with preservative 05/23/2019,09/05/2017,07/07/2015 Influenza injectable quadriv alent preservative free 05/05/2022,05/23/2019,08/06/2018,10/14 Influenza, IIV3, injectable 05/13/2014,0 05/02/2011,06/02/2010,05/08,06/05/2008 Influenza, Split (incl. zaid fied surface antigen) 06/19/2013,08/02/2012 Influenza, seasonal, injecta ble, preservative free 05/10/2024 Moderna Covid-19 Vaccine 12+ 08/17/2021,01/09/20 21,12/11/2020 Pfizer Covid-19 Vaccine 12+ 09/30/2024, 4 Pneumococcal Conjugate PCV 20 09/08/2022 Pneumococcal Polysaccharide PPSV23 12/08/2011 RSV Bivalent 09/01/2023 TD (adult), 2 Lf tetanus tox oid, preservative free, adsorbed 01/31/2022,06/19/2007 Tdap 12/08/2011 Zoster, Recombinant 03/05/2020,09/19/2019 Family History Medical History Relation Name Comments Diabetes Mother Relation Name Status Comments Mother Social History Tobacco Use Types Packs/Day Years Used Date Smoking Tobacco: Former Cigarettes Passive Smoke Exposure: Past Smokeless Tobacco: Never Tobacco Cessation:Counseling Given: Not Answered Alcohol Use Standard Drinks/Week Comments Defer 0 (1 standard drink = 0.6 oz pur e alcohol) Depression Answer Date Recorded Patient Health Questionnaire-9 Score 4 09/30/2024 Patient Health Questionnaire-9 Score 4 09/30/2024 Last PHQ-9: Questionnaire Data Not on file 0 09/30/2024 Housing Stability Answer Date Recorded What is [...] Answer Date Recorded Patient Health Questionnaire-2 Score 2 09/30/2024 Sex and Gender Information Value Date Recorded Sex Assigned at Male 06/20/2022 10:18 AM EDT Legal Sex Male 10:18 AM EDT Gender Identity Male 06/20/2022 10:18 AM EDT Sexual Orientation Choose not to disclose 2021 10:18 AM EDT Last Filed Vital Signs Vital Sign Reading Time Taken Comments Blood Pressure 145/78 09/30/2024 11:16 AM EST Pulse 75 09/30/2024 11:16 AM EST Temperature 36.1 ??C (96.9 ??F) 09/30/2024 1 1:16 AM EST Respiratory Rate 18 09/30/2024 11:1 6 AM EST Oxygen Saturation 98% 09/30/2024 11: 16 AM EST Inhaled Oxygen Concentration - - Weight 99.7 kg (219 lb 12.8 oz) 025 11:16 AM EST Height 174 cm (5' 8.5 ) 01/24/2023 9:16 AM EDT Body Mass Index 32.93 01/24/2023 9:16 AM EDT Plan of Treatment Upcoming Encounters Date Type Department Care Team (Late st Contact Info) Description 10/28/2024 10:30 AM EDT Office Visit [facility] OPTOMETRY [address] [place] [address] Aiden, Dora, OD [address] [place] [address] 01/06/2025 10:00 AM EDT Office Visit [facility] ADULT DENTAL [address] [place] [address] Scottie, Krista [address] [place] [address] Health Maintenance Due Date Last Done Comments CT Colonography 1963 FIT DNA/Cologuard 1963 FIT 1963 FOBT 1963 Sigmoidoscopy 1963 Eye Exam 1973 Diabetes: Foot Exam 01/25/2024 01/24/2023, 01/24/2023, 01/24/2023, Additional history exists Diabetes: Urine Protein Screening 04/27/2024 04/27/2023, 04/27/2023, 05/05/2022, Additional history exists Lipid Panel 04/27/2024 04/27/2023, 08/21, 05/05/2022 Dental Oral Exam 05/26/2024 11/24/2023, 03/2022, 08/31/2020, Additional history exists Diabetes: Hemoglobin A1C 11/21/2024 025, 05/10/2024, 01/22/2024, Additional history exists SDOH Screening 11/22/2024 11/23/2023 Dental X-Ray: Bitewings 11/24/2024 11/24/19 24, 11/26/2021, 08/31/2020, Additional history exists Dental X-Ray: Full Mouth 11/27/2024 11/26/2021, 03/21 Dental Prophylaxis 01/03/2025 07/05/2024, 0 11/24/2023, 11/26/2021, Additional history exists Tobacco Screening 08/28/2025 08/28/2024 Alcohol/Substance Use Screening 09/30/2025 09/30/2024 Depression Screening 09/30/2025 09/30/2024, 09/30/19 25 DTaP/Tdap/Td Vaccines (3 - Td or Tdap) 02/01/2032 01/31/2022, 12/08/2011, 06/19/2007 Colonoscopy 09/08/2032 09/08/2022, 03/25/2014 Colorectal Cancer Screening 09/08/2032 Hepatitis A Vaccines Aged Out 01/17/2013, 03/21/20 07 No longer eligible based on patient's age to complete this topic Hepatitis B Vaccines Completed 12/22/2014, 01/17/2013, 03/21/2007 Zoster Vaccines Completed 03/05/2020, 09/19/2019 HIV Screening Completed 09/08/2022, 10/14/2019 Hepatitis C Screening Completed 09/08/2022, 020 Pneumococcal Vaccine: 50+ Years Completed 09/08/2022, 12/08/2011 RSV Patients and Patients Aged 60 years or older Completed 09/01/2023 Influenza Vaccine Completed 05/10/2024, , 05/05/2022, Additional history exists COVID-19 Vaccine Completed 09/30/2024, 10/2023, 08/17/2021, Additional history exists HIB Vaccines Aged Out No longer eligi ble based on patient's age to complete this topic HPV Vaccines Aged Out No longer eligi ble based on patient's age to complete this topic IPV Vaccines Aged Out No longer eligi ble based on patient's age to complete this topic Meningococcal Vaccine Aged Out No maryam shine eligible based on patient's age to complete this topic RSV under 20 months Aged Out No longe r eligible based on patient's age to complete this topic Rotavirus Vaccines Aged Out No longer eligible based on patient's age to complete this topic Goals Goal Patient Goal Type Associated Problems Recent Progress Patient-Stated? Author Blood Pressure < 140/90 Blood Pressure 145/78(2024 11:16 AM EST) No Francois Rider PharmD Hemoglobin A1c < 7 Result Component 7(08/23/2024 10:15 AM EST) No Francois Rider PharmD Procedures Procedure Name Priority Date/Time Associated Diagnosis Comments POCT GLUCOSE Routine 09/30/2024 11:07 AM EST Type 2 diabetes mellitus with hyperglycemia, with long-term current use of insulin ([facility]) ADJUNCTIVE GENERAL SERVICES - PROFESSIONAL VISITS - CASE PRESENTATION, SUBSEQUENT TO DETAILED AND EXTENSIVE TREATMENT PLANNING Routine 08/28/2024 9:00 AM EST 11 DIFL RESIN-BASED COMPOSITE - 4 OR MORE SURFACES (ANTERIOR) Routine 08/28/2024 9:00 AM EST 12 M RESTORATIVE - RESIN-BASED COMPOSITE RESTORATIONS - DIRECT - RESIN-BASED COMPOSITE - ONE SURFACE, POSTERIOR Routine 08/28/2024 9:00 AM EST POCT GLYCATED HEMOGLOBIN, TOTAL Routine 08/23/2024 10:15 AM EST Type 2 diabetes mellitus with hyperglycemia, with long-term current use of insulin ([facility]) ADJUNCTIVE GENERAL SERVICES - PROFESSIONAL VISITS - CASE PRESENTATION, SUBSEQUENT TO DETAILED AND EXTENSIVE TREATMENT PLANNING Routine 07/29/2024 9:30 AM EST 4 MO RESTORATIVE - RESIN-BASED COMPOSITE RESTORATIONS - DIRECT - RESIN-BASED COMPOSITE - TWO SURFACES, POSTERIOR Routine 07/29/2024 9:30 AM EST 2 O RESTORATIVE - RESIN-BASED COMPOSITE RESTORATIONS - DIRECT - RESIN-BASED COMPOSITE - ONE SURFACE, POSTERIOR Routine 07/29/2024 9:30 AM EST ADJUNCTIVE GENERAL SERVICES - PROFESSIONAL VISITS - CASE PRESENTATION, SUBSEQUENT TO DETAILED AND EXTENSIVE TREATMENT PLANNING Routine 07/05/2024 1:00 PM EST Dental plaque Localized gingival recession ORAL HYGIENE INSTRUCTIONS Routine 07/05/2024 1:00 PM EST Dental plaque Localized gingival recession PROPHYLAXIS - ADULT Routine 07/05/2024 1 :00 PM EST Dental plaque BITEWINGS - 4 RADIOGRAPHIC IMAGES Routine 11/24/2023 8:00 AM EDT Dental plaque Dental caries Localized gingival recession PERIODIC ORAL EVALUATION - ESTABLISHED PATIENT Routine 11/24/2023 8:00 AM EDT LIPID PANEL WITH REFLEX TO DIRECT LDL Routine 04/27/2023 11:19 AM EDT Type 2 diabetes mellitus with hyperglycemia, with long-term current use of insulin ([facility]) DIABETES: URINE PROTEIN SCREENING Routine 04/27/2023 HEPATITIS C AB W/REFL TO HCV RNA, QN, PCR Routine 09/08/2022 10:06 AM EST Routine screening for STI (sexually transmitted infection) HIV 1/2 ANTIGEN/ANTIBODY, FOURTH GENERATION W/RFL Routine 09/08/2022 10:06 AM EST Routine screening for STI (sexually transmitted infection) HM COLONOSCOPY Routine 09/08/2022 9:57 AM EST DIAGNOSTIC - DIAGNOSTIC IMAGING - INTRAORAL - COMPREHENSIVE SERIES OF RADIOGRAPHIC IMAGES Routine 11/26/2021 12:00 AM EDT from Last 3 Months or Most Recently Relevant to Health Maintenance Results * POCT glucose manually resulted (09/30/2024 11:07 AM EST) Glucose Blood, POC 128 60 - 200 mg/dL QC Media Lot # [id number] Lot# Expiration Date [id number] Blood Capillary blood specimen / Unknown 09/30/2024 11:07 AM EST Samra Marsh MD POINT OF CARE TEST ENTER/EDIT OR DERABLES Final Result * (ABNORMAL) POCT HGB A1C (08/23/2024 10:15 AM EST) Hemoglobin A1C 7.0(A) 4.0 - 6.0 % QC Media Lot # [id number] Lot# Expiration Date ,[id number] Blood 08/23/2024 10:1 5 AM EST Samra Marsh MD POINT OF CARE TEST ENTER/EDIT OR DERABLES Final Result * Lipid Panel with Reflex to Direct LDL (04/27/2023 11:19 AM EDT) Triglycerides 95 <150 mg/dL [facility] Comment:Desirable Triglyceri de: less than 150 mg/dLBorderline High Triglyceride 150-199 mg/dLHigh Triglyceride: 200-499 mg/dLVery High Triglyceride: greater than or equal to 5OO mg/dL Cholesterol 121 <200 mg/dL [facility] Comment:Desirable Cholestero l: less than 200 mg/dLBorderline High Cholesterol: 200-239 mg/dLHigh Cholesterol: greater than 239 mg/dL LDL Cholesterol Calculated 59 <100 mg/dL [facility] Comment:Desirable LDL: less than 100 mg/dLNear Optimal/Above Optimal LDL: 110- 129 mg/dLBorderline High LDL: 130-159 mg/dLHigh LDL: 160-189 mg/dLVery High LDL: greater than or equal to 190 mg/dL HDL Cholesterol 43 >40 mg/dL [facility] Comment:Desirable HDL: great er than 40 mg/dL Note: This HDL assay may give artificially low results in patients with liver disease. Blood 04/27/2023 11:1 9 AM EDT 04/27/2023 1:12 PM EDT Samra Marsh MD LAB BLOOD ORDERABLES Final Resul t [facility] [address] [place] [phone] * HM Diabetes: Urine Protein Screening (04/27/2023) Microalbumin, Urine 7.4 Creatinine, Random Urine 0.82 Urine Samra Marsh MD HEALTH MAINTENANCE Final Result * Hepatitis C Antibody with Reflex to HCV, RNA, Quantitative, Real-Time PCR (09/08/2022 10:06 AM EST) Hepatitis C Antibody NON-REACT PETER NON-REACT PETER [facility] [place] [facility] Index <0.02 <1.00 [facility] [place] [facility] Comment: HCV antibody was non-reactive. There is no laboratory evidence of HCV infection. In most cases, no further action is required. However, if recent HCV exposure is suspected, a test for HCV RNA (test code 97030) is suggested. For additional information please refer to http://education.[facility] [facility]/faq/HHD76l8 (This link is being provided for informational/ educational purposes only.) Blood Venous blood specimen / Unknown 09/08/2022 10:06 AM EST 09/08/2022 10:07 AM EST Narrative [facility] - 09/12/2022 10:07 PM EST FASTING:NO FASTING: NO Tawny Bass MD LAB BLOOD ORDERABLES Final Result [facility] [address], [place] [address] [facility] [place] [employer] [address] [facility], ([address]) [place] [address] * HIV-1/2 Antigen and Antibodies, Fourth Generation, with Reflexes (09/08/2022 10:06 AM EST) HIV Antigen/Antibody, 4th Generation NON-REAC TIVE NON-REAC TIVE [facility] [place] [facility] Comment: HIV-1 antigen and HIV-1/HIV-2 antibodies were not detected. There is no laboratory evidence of HIV infection. PLEASE NOTE: This information has been disclosed to you from records whose confidentiality may be protected by state law. ??If your state requires such protection, then the state law prohibits you from making any further disclosure of the information without the specific written consent of the person to whom it pertains, or as otherwise permitted by law. A general authorization for the release of medical or other information is NOT sufficient for this purpose. ?? For additional information please refer to http://education.[facility]/faq/ZMO003 (This link is being provided for informational/ educational purposes only.) The performance of this assay has not been clinically validated in patients less than 2 years old. Blood Venous blood specimen / Unknown 09/08/2022 10:06 AM EST 09/08/2022 10:07 AM EST Narrative [facility] - 09/12/2022 10:07 PM EST FASTING:NO FASTING: NO Tawny Bass MD LAB BLOOD ORDERABLES Final Result [facility] [address] [facility], [facility], [place] [address] [facility] [address] [facility], ([address]) [place] [address] * Hm Colonoscopy (09/08/2022 9:57 AM EST) Historical Provider HEALTH MAINTENANCE Final Result from Last 3 Months or Most Recently Relevant to Health Maintenance Insurance [facility] AD[facility] Care Teams Optical Engineer Relationship Specialty Start Date End Date Samra Marsh MD [address] [place] [address] PCP - General Family Medicine 08/21/18 Francois Rider, PharmD [address] [place] [address] Pharmacist Internal Medicine 12/30/22 Yung Patel, MERVAT [address] [place] [phone] Esol InstructorAnalytical Data Miner 11/20/23 Brandon Jones Jr Esol InstructorAnalytical Data Miner 05/10/24 [facility] 06/24/22
--- OUTSIDE RECORDS SUMMARY | 2024-09-30 13:01 | XMS_ITS | Encounter Summary ---
Author Organization [employer] Address [address] [place] [address] Care Team Providers Care Cable Television Program Director Name Role Phone Samra Marsh MD Primary Care Provider [phone] Francois Rider PharmD Unavailable [phone] Yung Patel RN Unavailable [phone] Encounter Details Date Type Department Care Team (Latest Contact Info) Description 09/30/2024 Travel Social History Tobacco Use Types Packs/Day Years [...] Description 10/28/2024 10:30 AM EDT Office Visit [facility] OPTOMETRY [address] [place] [address] Aiden, Dora, OD [address] [place] [address] 01/06/2025 10:00 AM EDT Office Visit [facility] ADULT DENTAL [address] [place] [address] Scottie, Krista [address] [place] [address] documented as of this encounter Goals Goal [...] Assessment Noted Time PHQ-9 Depression Total Score: 4 09/30/19 25 11:06 AM EST documented as of this encounter Care Teams Cable Television Program Director Relationship Specialty Start Date End Date Samra Marsh MD [address] [place] [address] PCP - General Family Medicine 08/21/18 Francois Rider PharmD [address] [place] [address] Pharmacist Internal Medicine 12/30/22 Yung Patel, MERVAT [address] [place] [phone] Catalogue MakerSheet Metal Mechanic 11/20/23 Brandon Jones Jr Catalogue MakerSheet Metal Mechanic 05/10/24 [employer] 06/24/22 documented as of this encounter
--- OUTSIDE RECORDS SUMMARY | 2024-09-30 13:01 | XMS_ITS | Encounter Summary ---
Author Organization [employer] Address [address] [place] [address] Care Team Providers Care Head Sugar Reprocess Operator Name Role Phone Samra Marsh MD Primary Care Provider Francois Rider PharmD Unavailable [phone] Yung Patel RN Unavailable [phone] Encounter Details Date Type Department Care Team (Late Contact Info) Description 07/27/2022 Abstract [facility] MEDICINE [address] [place] [address] Samra Marsh MD [address] [place] [address] Social History Tobacco Use Types Packs/Day Years Used Date Smoking Tobacco: Never Assessed Sex and Gender Information Value Date Recorded Sex Assigned at Male 06/20/2022 10:18 AM EDT Legal Sex Male 10:18 AM EDT Gender Identity Male 06/20/2022 10:18 AM EDT Sexual Orientation Choose not to disclose 2021 10:18 AM EDT COVID-19 Exposure Response Date Recorded In the last 10 days, have yo u been in contact with someone who was confirmed or suspected to have Coronavirus/COVID-19? No / Unsure 07/28/2022 9:09 AM EST documented as of this encounter Plan of Treatment Upcoming Encounters Date Type Department Care Team (Late Contact Info) Description 10/28/2024 10:30 AM EDT Office Visit [facility] OPTOMETRY [address] [place] [address] Dora Wolfe, OD [address] [place], [place] [phone] 01/06/2025 10:00 AM EDT Office Visit [facility] ADULT DENTAL [address] [place], [place] [phone] Krista Rubin [address] [place], [place] [phone] documented as of this encounter Visit Diagnoses Not on filedocumented in this encounter Care Teams Head Sugar Reprocess Operator Relationship Specialty Start Date End Date Samra Marsh MD [address] [place], [place] [phone] PCP - General Family Medicine 08/21/18 Francois Rider, TomásD [address] [place] [address] [phone] Pharmacist Internal Medicine 12/30/22 Yung Patel, MERVAT [address] [place] [phone] Country ManagerDirector Of Community Life 11/20/23 Sharon Perez Community Health Worker Case Management 01/18/24 01/18/24 Brandon Jones Jr Country ManagerDirector Of Community Life 05/10/24 [employer] 06/24/22 documented as of this encounter
--- OUTSIDE RECORDS SUMMARY | 2024-09-30 13:01 | XMS_ITS | Encounter Summary ---
Author Organization [employer] Address [address] [facility] [address] [place] [address] Care Team Providers Care Business Technology Architect Name Role Phone Samra Marsh MD Primary Care Provider [phone] Francois Rider PharmD Unavailable [phone] Yung Patel RN Unavailable [phone] Reason for Visit * Reason Onset Date Comments Prior Authorization 04/12/2024 Encounter Details Date Type Department Care Team (Late st Contact Info) Description 04/12/2024 Telephone [facility] MEDICINE [address] [place], [place] [phone] Samra Marsh MD [address] [place], [place] [phone] Prior Authorization Social History Tobacco Use Types Packs/Day Years [...] encounter Miscellaneous Notes * Telephone Encounter - Hai Perez - 04/12/2024 1:01 PM EDT Tc from Kimmy BAUER calling in regards to the One[employer] Verio test strip stating they need a PA. Shan stated it has been a week and she has not received an update on PA. Please contact Kimmy at [phone] documented in this encounter Plan of Treatment Upcoming Encounters Date Type Department Care Team (Late st Contact Info) Description 10/28/2024 10:30 AM EDT Office Visit [facility] OPTOMETRY [address] [place] [address] Dora Wolfe, OD [address] [place] [address] 01/06/2025 10:00 AM EDT Office Visit [facility] ADULT DENTAL [address] [place] [address] Krista Rubin [address] [place] [address] documented as of this encounter Goals Goal Patient Goal Type Associated Problems Recent Progress Patient-Stated? Author Blood Pressure < 140/90 Blood Pressure 145/78(2024 11:16 AM EST) No Francois Rider, PharmD Hemoglobin A1c < 7 Result Component 7(08/23/2024 10:15 AM EST) No Francois Rider, PharmD documented as of this encounter Visit Diagnoses Not on filedocumented in this encounter Additional Health Concerns Assessment Noted Time PHQ-9 Depression Total Score: 0 09/08/19 9:31 AM EST documented as of this encounter Care Teams Business Technology Architect Relationship Specialty Start Date End Date Samra Marsh MD [address] [place] [address] PCP - General Family Medicine 08/21/18 Francois Rider, PharmD [address] [place] [address] Pharmacist Internal Medicine 12/30/22 Yung Patel RN [address] [place] [phone] Broke ManStatistical Methods Teacher 11/20/23 Brandon Jones Jr Broke ManStatistical Methods Teacher 05/10/24 [employer] 06/24/22 documented as of this encounter
--- OUTSIDE RECORDS SUMMARY | 2024-09-30 13:01 | XMS_ITS | Encounter Summary ---
Author Organization [employer] Address [address] [facility] [address] [place] [address] Care Team Providers Care Banquet Manager Name Role Phone Samra Marsh MD Primary Care Provider [phone] Francois Rider PharmD Unavailable [phone] Yung Patel RN Unavailable [phone] Encounter Details Date Type Department Care Team (Latest Contact Info) Description 12/10/2020 Abstract [facility] CONVERSIONS Dental, Provider, DDS Social History Tobacco [...] Office Visit [facility] OPTOMETRY [address] [place] [address] Aiden, Dora, OD [address] [place] [address] 01/06/2025 10:00 AM EDT Office Visit [facility] ADULT DENTAL [address] [place] [address] Scottie, Krista [address] [place] [address] documented as of this encounter Visit Diagnoses Not on filedocumented in this encounter Care Teams Banquet Manager Relationship Specialty Start Date End Date Samra Marsh MD [address] [place] [address] PCP - General Family Medicine 08/21/18 Francois Rider, Jared [address] [place], [place] [phone] Pharmacist Internal Medicine 12/30/22 Yung Patel, MERVAT [address] [place] [address] Cardiopulmonary SpecialistTombstone Polisher 11/20/23 Sharon Perez Community Health Worker Case Management 01/18/24 01/18/24 Brandon Jones Jr Cardiopulmonary SpecialistTombstone Polisher 05/10/24 [employer] 06/24/22 documented as of this encounter
--- OUTSIDE RECORDS SUMMARY | 2024-09-30 13:01 | XMS_ITS | Encounter Summary ---
Author Organization [employer] Address [address] [facility] [address] 7t [place] [address] Care Team Providers Care Core Placer Name Role Phone Samra Marsh MD Primary Care Provider Francois Rider PharmD Unavailable [phone] Yung Patel RN Unavailable [phone] Encounter Details Date Type Department Care Team (Late st Contact Info) Description 12/18/2023 Orders Only [facility] MEDICINE [address] [place] [address] Provider, MD Anam Social History Tobacco Use Types Packs/Day Years Used Date Smoking Tobacco: Former Cigarettes Passive Smoke Exposure: Past Smokeless Tobacco: Never Depression Answer Date Recorded Patient Health Questionnaire-9 Score 0 09/08/2022 Housing Stability Answer Date Recorded What is your housing situation today? I have belindaamina streeter 11/23/[address] you [...] Description 10/28/2024 10:30 AM EDT Office Visit [facility] OPTOMETRY [address] [place] [address] Aiden, Dora, OD [address] [place] [address] 01/06/2025 10:00 AM EDT Office Visit [facility] ADULT DENTAL [address] [place] [address] Scottie, Krista [address] [place] [address] documented as of this encounter Goals Goal Patient Goal Type Associated Problems Recent Progress Patient-Stated? Author Blood Pressure < 140/90 Blood Pressure 145/78(2024 11:16 AM EST) No Francois Rider PharmD Hemoglobin A1c < 7 Result Component 7(08/23/2024 10:15 AM EST) No Francois Rider PharmD documented as of this encounter Procedures Procedure Name Priority Date/Time Associated Diagnosis Comments HM COLONOSCOPY Routine 03/25/2014 11:24 AM EDT documented in this encounter Results * Hm Colonoscopy (03/25/2014 11:24 AM EDT) Historical Provider HEALTH MAINTENANCE Final Result documented in this encounter Visit Diagnoses Not on filedocumented in this encounter Additional Health Concerns Assessment Noted Time PHQ-9 Depression Total Score: 0 09/08/19 23 9:31 AM EST documented as of this encounter Care Teams Core Placer Relationship Specialty Start Date End Date Samra Marsh MD [address] [place] [address] PCP - General Family Medicine 08/21/18 Francois Rider, TomásD [address] [place] [address] Pharmacist Internal Medicine 12/30/22 Yung Patel, RN [address] [place] [address] Veterans Contact RepresentativeKiln Furniture Saw Tender 11/20/23 Sharon Perez Community Health Worker Case Management 01/18/24 01/18/24 Brandon Jones Jr Veterans Contact RepresentativeKiln Furniture Saw Tender 05/10/24 [employer] 06/24/22 documented as of this encounter
--- OUTSIDE RECORDS SUMMARY | 2024-09-30 13:01 | XMS_ITS | Encounter Summary ---
Author Organization [employer] Address 75 [facility] 7t [place] [address] Care Team Providers Care Football Pad Repairer Name Role Phone Samra Marsh MD Primary Care Provider [phone] Francois Rider PharmD Unavailable [phone] Yung Patel RN Unavailable [phone] Reason for Visit * Reason Comments Med Refill Encounter Details Date Type Department Care Team (Late st Contact Info) Description 06/24/[address] [facility] MEDICINE [address] [place], [place] [phone] Samra Marsh MD [address] [place], [place] [phone] Diabetic polyneuropathy associated with type 2 diabetes mellitus (CMS/HCC) Social History Tobacco Use Types Packs/Day Years Used Date Smoking Tobacco: Former Cigarettes Passive Smoke Exposure: Past Smokeless Tobacco: Never Depression Answer Date Recorded Patient Health Questionnaire-9 Score 0 09/08/2022 Housing Stability Answer Date Recorded What is your housing situation today? I have belinda streeter 06/06/[address] you li [...] Description 10/28/2024 10:30 AM EDT Office [address] [facility] OPTOMETRY [address] [place] [address] AidenDora, OD [address] [place] [address] 01/06/2025 10:00 AM EDT Office [address] [facility] ADULT DENTAL [address] [place] [address] Scottie, Krista [address] [place] [address] documented as of this encounter Goals Goal Patient Goal Type Associated Problems Recent Progress Patient-Stated? Author Blood Pressure < 140/90 Blood Pressure 145/78(2024 11:16 AM EST) No Francois Rider, PharmNick Hemoglobin A1c < 7 Result Component 7(08/23/2024 10:15 AM EST) No Francois Rider PharmD documented as of this encounter Visit Diagnoses Diagnosis Diabetic polyneuropathy associated with type 2 diabetes mellitus (CMS/HCC) documented in this encounter Additional Health Concerns Assessment Noted Time PHQ-9 Depression Total Score: 0 09/08/19 23 9:31 AM EST documented as of this encounter Care Teams Football Pad Repairer Relationship Specialty Start Date End Date Samra Marsh MD [address] [place] [address] PCP - General Family Medicine 08/21/18 Francois Rider, TomásD [address] [place] [address] Pharmacist Internal Medicine 12/30/22 Yung Patel, MERVAT [address] [place] [address] Clothing SorterCeiling Cleaner 11/20/23 Sharon Perez Community Health Worker Case Management 01/18/24 01/18/24 Brandon Jones Jr Clothing SorterCeiling Cleaner 05/10/24 [email or web address] 06/24/22 documented as of this encounter
--- OUTSIDE RECORDS SUMMARY | 2024-09-30 13:01 | XMS_ITS | Encounter Summary ---
Author Organization [employer] Address [address] [facility] 7t [place] [address] Care Team Providers Care Channel Development Director Name Role Phone Samra Marsh MD Primary Care Provider [phone] Francois Rider PharmD Unavailable [phone] Yung Patel RN Unavailable [phone] Reason for Visit * Reason Comments Med Refill Encounter Details Date Type Department Care Team (Late st Contact Info) Description 03/27/2024 Refill [facility] MEDICINE [address] [place], [place] [phone] Samra Marsh MD [address] [place], [place] [phone] Diabetic polyneuropathy associated with type 2 diabetes [...] Description 10/28/2024 10:30 AM EDT Office Visit [facility] OPTOMETRY [address] [place] [address] Aiden, Dora, OD [address] [place] [address] 01/06/2025 10:00 AM EDT Office Visit [facility] ADULT DENTAL [address] [place] [address] Scottie, Krista [address] [place] [address] documented as of this encounter Goals Goal [...] documented as of this encounter Care Teams Channel Development Director Relationship Specialty Start Date End Date Samra Marsh MD [address] [place] [address] PCP - General Family Medicine 08/21/18 Francois Rider, Jared [address] [place] [address] Pharmacist Internal Medicine 12/30/22 Yung Patel, MERVAT [address] [place] [address] Co DirectorInterventional Radiology Technologist 11/20/23 Brandon Jones Jr Co DirectorInterventional Radiology Technologist 05/10/24 [facility] 06/24/22 documented as of this encounter
--- OUTSIDE RECORDS SUMMARY | 2024-09-30 13:01 | XMS_ITS | Encounter Summary ---
Author Organization [employer] Address [address] [facility] 7t [place] [address] Care Team Providers Care Lead Loader Name Role Phone Samra Marsh MD Primary Care Provider [phone] Francois Rider PharmD Unavailable [phone] Yung Patel RN Unavailable [phone] Reason for Visit * Reason Onset Date Comments c/b requested 05/18/2023 Encounter Details Date Type Department Care Team (Late st Contact Info) Description 05/18/2023 Telephone [facility] MEDICINE [address] [place], [place] [phone] Samra Marsh MD [address] [place], [place] [phone] c/b requested Social History Tobacco Use Types Packs/Day Years [...] encounter Miscellaneous Notes * Telephone Encounter - Ross Macario - 05/18/2023 11:36 AM EDT Tc from Kimmy BAUER with [facility] would like to inform PCP that pt blood pressure is a 3 at normal reading, Kimmy would like a call back to discuss. Please contact at [phone] documented in this encounter Plan of Treatment Upcoming Encounters Date Type Department Care Team (Late st Contact Info) Description 10/28/2024 10:30 AM EDT Office Visit [facility] OPTOMETRY [address] [place] [address] Dora Wolfe, OD [address] [place] [address] 01/06/2025 10:00 AM EDT Office Visit [facility] ADULT DENTAL [address] [place] [address] Krista Rubin [address] [place] [address] documented as of this encounter Goals Goal [...] documented as of this encounter Care Teams Lead Loader Relationship Specialty Start Date End Date Samra Marsh MD [address] [place] [address] PCP - General Family Medicine 08/21/18 Francois Rider, PharmD [address] [place] [address] Pharmacist Internal Medicine 12/30/22 Yung Patel, MERVAT [address] [place] [address] Spa ConsultantPlumber Helper 11/20/23 Sharon Perez Community Health Worker Case Management 01/18/24 01/18/24 Brandon Jones Jr Spa ConsultantPlumber Helper 05/10/24 [employer] 06/24/22 documented as of this encounter
--- OUTSIDE RECORDS SUMMARY | 2024-09-30 13:01 | XMS_ITS | Encounter Summary ---
Author Organization [employer] Address [address] [facility] [address] [place] [address] Care Team Providers Care Dedicated Owner Operator Name Role Phone Samra Marsh MD Primary Care Provider [phone] Francois Rider PharmD Unavailable [phone] Yung Patel RN Unavailable [phone] Encounter Details Date Type Department Care Team (Late st Contact Info) Description 09/30/2024 11:15 AM EST Office Visit [facility] MEDICINE [address] [place], [place] [phone] Samra Marsh MD 230 [place], [place] [phone] Type 2 diabetes mellitus with hyperglycemia, with long-term current use of insulin ([facility]/HCC) (Primary Dx); Holland's esophagus without dysplasia; Primary hypertension; Moderate persistent asthma without complication; Need for COVID-19 vaccine Social History Tobacco Use Types Packs/Day Years [...] AM EDT documented as of this encounter Last Filed Vital Signs Vital Sign Reading [...] 12.8 oz) 025 11:16 AM EST Height - - Body Mass Index 32.93 01/24/2023 9:16 AM EDT documented in this encounter Plan of Treatment Upcoming Encounters Date Type Department Care Team (Late st Contact Info) Description 10/28/2024 10:30 AM EDT Office Visit [facility] OPTOMETRY [address] [place], [place] [phone] Dora Wolfe, OD [address] [place] [address] 01/06/2025 10:00 AM EDT Office Visit [facility] ADULT DENTAL [address] [place] [address] Krista Rubin [address] [place] [address] documented as of this encounter Goals Goal [...] hyperglycemia, with long-term current use of insulin ([facility]) documented in this encounter Results * POCT glucose manually resulted (09/30/2024 11:07 AM EST) Glucose Blood, POC 128 60 - 200 mg/dL QC Media Lot # [id number] Lot# Expiration Date Blood Capillary blood specimen / Unknown 09/30/2024 11:07 AM EST Samra Marsh MD POINT OF CARE TEST ENTER/EDIT OR DERABLES Final Result documented in this encounter Visit Diagnoses Diagnosis Type 2 diabetes mellitus with hyperglycemia, with long-term current use of insulin ([facility])- Primary Holland's esophagus without dysplasia Primary hypertension Unspecified essential hypertension Moderate persistent asthma without complication Need for COVID-19 vaccine documented in this encounter Additional Health Concerns Assessment Noted Time PHQ-9 Depression Total Score: 4 09/30/19 25 11:06 AM EST documented as of this encounter Care Teams Dedicated Owner Operator Relationship Specialty Start Date End Date Samra Marsh MD [address] [place] [address] PCP - General Family Medicine 08/21/18 Francois Rider, TomásD [address] [place] [address] Pharmacist Internal Medicine 12/30/22 Yung Patel, MERVAT [address] [place] [address] Media AnalystIon Implant Machine Operator 11/20/23 Brandon Jones Jr Media AnalystIon Implant Machine Operator 05/10/24 [employer] 06/24/22 documented as of this encounter
[2024-09-30 13:49] LABS: Alanine Aminotransferase 44 U/L (0-40); Albumin Level 4.3 g/dL (3.5-5.0); Alkaline Phosphatase 104 U/L (39-117); Anion Gap 11 (12-20); Aspartate Amino Transferase 35 U/L (5-37); Bilirubin Direct 0.2 mg/dL (0.0-0.5); Bilirubin Total 0.4 mg/dL (0.0-1.0); Blood Urea Nitrogen 11 mg/dL (9-16); Calcium 9.8 mg/dL (8.4-10.2); Carbon Dioxide 26 mmol/L (22-29); Chloride 110 mmol/L (96-108); Cholesterol 158 mg/dL (<200); Estimated Glomerular Filt Rate > 60; Glucose Random 100 mg/dL (60-115); HDL Cholesterol 49 mg/dL (>40); LDL Cholesterol Calculated 76 mg/dL (<100); Potassium 3.8 mmol/L (3.3-5.1); Sodium 143 mmol/L (135-145); Total Protein 8.3 g/dL (6.5-8.0); Triglycerides 169 mg/dL (<150)
[2024-09-30 14:01] LABS: Creatinine Urine 411.52 mg/dL; Microalbum/Creatinine Ratio Ur 13.6 ug/mg cr (<30)
== END 2024-09-30 11:43 | disposition home or self-care (01) ==
LOC: HO.HHCL 11:42
PROVIDERS: Visit Provider Family Medicine
DX: E11.65 Type 2 diabetes mellitus with hyperglycemia (principal); Z79.4 Long term (current) use of insulin; I10 Essential (primary) hypertension
CPT/HCPCS: 36415; 80048; 80061; 80076; 82043; 82570

== ENCOUNTER 2024-12-12 17:47 | Outpatient (REF) | payer MEDICAID, SELFPAY | END 2024-12-12 17:48 | disposition home or self-care (01) | LOC: HO.HHCLNP 17:47 | PROVIDERS: Visit Provider Internal Medicine | DX: R39.9 Unspecified symptoms and signs involving the genitourinary system (principal) | CPT/HCPCS: 87086 ==

== ENCOUNTER 2024-12-24 08:53 | Day surgery (SDC) | payer MEDICAID, SELFPAY ==
--- OUTSIDE RECORDS SUMMARY | 2024-11-28 16:51 | XMS_ITS | Encounter Summary ---
Author Organization [employer] Address 75 [facility] 7t [place] [address] Care Team Providers Care Aircraft Time Clerk Name Role Phone Samra Marsh MD Primary Care Provider [phone] Francois Rider PharmD Unavailable [phone] Yung Patel RN Unavailable [phone] Reason for Visit * Reason Comments Med Refill Encounter Details Date Type Department Care Team (Late st Contact Info) Description 03/27/2024 Refill [facility] MEDICINE [address] [place], [place] [phone] Samra Marsh MD [address] [place], [place] [phone] Diabetic polyneuropathy associated with type 2 diabetes [...] Care Team (Late st Contact Info) Description 01/06/2025 10:00 AM EDT Office Visit [facility] ADULT DENTAL [address] [place] [address] ScottieJurgenKrista [address] [place] [address] documented as of this encounter Goals Goal Patient Goal Type Associated Problems Recent Progress Patient-Stated? Author Blood Pressure < 140/90 Blood Pressure 146/80(2024 4:47 PM EST) No Francois Rider PharmD Hemoglobin A1c < 7 Result Component 7(08/23/2024 10:15 AM EST) No Francois Rider PharmD documented as of this encounter Visit Diagnoses Diagnosis Diabetic polyneuropathy associated with type 2 diabetes mellitus ([facility]) documented in this encounter Additional Health Concerns Assessment Noted Time PHQ-9 Depression Total Score: 0 09/08/19 23 9:31 AM EST documented as of this encounter Care Teams Aircraft Time Clerk Relationship Specialty Start Date End Date Samra Marsh MD [address] [place] [address] PCP - General Family Medicine 08/21/18 Francois Rider PharmD [address] [place] [address] Pharmacist Internal Medicine 12/30/22 Yung Patel, MERVAT [address] [place] [address] Manager FloatHospitalist Medical Director 11/20/23 Brandon Jones Jr Manager FloatHospitalist Medical Director 05/10/24 [employer] 06/24/22 documented as of this encounter
--- OUTSIDE RECORDS SUMMARY | 2024-11-28 16:51 | XMS_ITS | Encounter Summary ---
Author Organization [employer] Address [address] [facility] 7t [place] [address] Care Team Providers Care Sod Farmer Name Role Phone Samra Marsh MD Primary Care Provider [phone] Francois Rider PharmD Unavailable [phone] Yung Patel RN Unavailable [phone] Reason for Visit * Reason Comments Med Refill Encounter Details Date Type Department Care Team (Late st Contact Info) Description 04/04/2024 Refill [facility] MEDICINE [address] [place], [place] [phone] Samra Marsh MD [address] [place], [place] [phone] Diabetic polyneuropathy associated with type 2 diabetes [...] Description 01/06/2025 10:00 AM EDT Office Visit [facility] ADULT DENTAL [address] [place] [address] ScottieJurgenKrista [address] [place] [address] documented as of this encounter Goals Goal Patient Goal Type Associated Problems Recent Progress Patient-Stated? Author Blood Pressure < 140/90 Blood Pressure 146/80(2024 4:47 PM EST) No Francois Rider PharmD Hemoglobin A1c < 7 Result Component 7(08/23/2024 10:15 AM EST) No Francois Rider PharmD documented as of this encounter Visit Diagnoses Diagnosis Diabetic polyneuropathy associated with type 2 diabetes mellitus ([facility]) documented in this encounter Additional Health Concerns Assessment Noted Time PHQ-9 Depression Total Score: 0 09/08/19 23 9:31 AM EST documented as of this encounter Care Teams Sod Farmer Relationship Specialty Start Date End Date Samra Marsh MD [address] [place] [address] PCP - General Family Medicine 08/21/18 Francois Rider PharmD [address] [place] [address] Pharmacist Internal Medicine 12/30/22 Yung Patel, MERVAT [address] [place] [address] Machine Cage MakerCardiac Nurse Practitioner 11/20/23 Brandon Jones Jr Machine Cage MakerCardiac Nurse Practitioner 05/10/24 [employer] 06/24/22 documented as of this encounter
--- OUTSIDE RECORDS SUMMARY | 2024-11-28 16:51 | XMS_ITS | Encounter Summary ---
Author Organization [employer] Address 75 [facility] 7t [place] [address] Care Team Providers Care Oncology Technician Name Role Phone Samra Marsh MD Primary Care Provider [phone] Francois Rider PharmD Unavailable [phone] Yung Patel RN Unavailable [phone] Encounter Details Date Type Department Care Team (Latest Contact Info) Description 09/14/2018 Abstract [facility] CONVERSIONS Dental, Provider, DDS Social History [...] Description 01/06/2025 10:00 AM EDT Office Visit [facility] ADULT DENTAL [address] [place] [address] Scottie, Krista [address] [place] [address] documented as of this encounter Visit Diagnoses Not on filedocumented in this encounter Care Teams Oncology Technician Relationship Specialty Start Date End Date Samra Marsh MD [address] [place], [place] [phone] PCP - General Family Medicine 08/21/18 Francois Rider, PharmD [address] [place] [address] Pharmacist Internal Medicine 12/30/22 Yung Patel, RN [address] [place] [address] Oracle Business AnalystMold Clamper 11/20/23 Sharon Perez Community Health Worker Case Management 01/18/24 01/18/24 Brandon Jones Jr [employer] Business AnalystMold Clamper 05/10/24 [employer] 06/24/22 documented as of this encounter
--- OUTSIDE RECORDS SUMMARY | 2024-11-28 16:51 | XMS_ITS | Encounter Summary ---
Author Organization [employer] Address [address] [facility] 7t [place] [address] Care Team Providers Care Television Presenter Name Role Phone Samra Marsh MD Primary Care Provider [phone] Francois Rider PharmD Unavailable [phone] Yung Patel RN Unavailable [phone] Reason for Visit * Reason Onset Date Comments Prior Authorization 04/12/2024 Encounter Details Date Type Department Care Team (Late st Contact Info) Description 04/12/2024 Telephone [facility] MEDICINE [address] [place], [place] [phone] Samra Marsh MD [address] [place], [place] [phone] Prior Authorization Social History Tobacco Use Types [...] update on PA. Please contact Kimmy at [phone] documented in this encounter Plan of Treatment Upcoming Encounters Date Type Department Care Team (Late st Contact Info) Description 01/06/2025 10:00 AM EDT Office Visit [facility] ADULT DENTAL [address] [place] [address] ScottieJurgenKrista [address] [place] [address] documented as of this encounter Goals Goal Patient Goal Type Associated Problems Recent Progress Patient-Stated? Author Blood Pressure < 140/90 Blood Pressure 146/80(2024 4:47 PM EST) No Francois Rider, PharmD Hemoglobin A1c < 7 Result Component 7(08/23/2024 10:15 AM EST) No Francois Rider PharmD documented as of this encounter Visit Diagnoses Not on filedocumented in this encounter Additional Health Concerns Assessment Noted Time PHQ-9 Depression Total Score: 0 09/08/19 23 9:31 AM EST documented as of this encounter Care Teams Television Presenter Relationship Specialty Start Date End Date Samra Marsh MD [address] [place], [place] [phone] PCP - General Family Medicine 08/21/18 Francois Rider, TomásD [address] [place], [place] [phone] Pharmacist Internal Medicine 12/30/22 Yung Patel, MERVAT [address] [place] [address] Certification And Selection SpecialistFinancial Services Sales Representative 11/20/23 Brandon Jones Jr Certification And Selection SpecialistFinancial Services Sales Representative 05/10/24 [employer] 06/24/22 documented as of this encounter
--- OUTSIDE RECORDS SUMMARY | 2024-11-28 16:51 | XMS_ITS | Encounter Summary ---
Author Organization [employer] Address [address] [facility] 7t [place] [address] Care Team Providers Care Co Teacher Name Role Phone Samra Marsh MD Primary Care Provider [phone] Francois Rider PharmD Unavailable Yung Patel RN Unavailable [phone] Encounter Details Date Type Department Care Team (Latest Contact Info) Description 12/10/2020 Abstract [facility] CONVERSIONS Dental, Provider, DDS Social History [...] Description 01/06/2025 10:00 AM EDT Office Visit [facility] ADULT DENTAL [address] [place] [address] Scottie, Krista [address] [place] [address] documented as of this encounter Visit Diagnoses Not on filedocumented in this encounter Care Teams Co Teacher Relationship Specialty Start Date End Date Samra Marsh MD [address] [place], [place] [phone] PCP - General Family Medicine 08/21/18 Francois Rider, PharmD [address] [place] [address] Pharmacist Internal Medicine 12/30/22 Yung Patel, RN [address] [place] [address] Navy DiverPost Doctoral Researcher 11/20/23 Sharon Perez Community Health Worker Case Management 01/18/24 01/18/24 Brandon Jones Jr Navy DiverPost Doctoral Researcher 05/10/24 [employer] 06/24/22 documented as of this encounter
--- OUTSIDE RECORDS SUMMARY | 2024-11-28 16:51 | XMS_ITS | Encounter Summary ---
Author Organization [employer] Address [address] [facility] [place] [address] Care Team Providers Care Center Line Cutter Operator Name Role Phone Samra Marsh MD Primary Care Provider [phone] Francois Rider PharmD Unavailable [phone] Yung Patel RN Unavailable [phone] Encounter Details Date Type Department Care Team (Late st Contact Info) Description 10/25/2023 Orders Only [facility] MEDICINE [address] [place], [place] [phone] Samra Marsh MD [address] [place], [place] [phone] Type 2 diabetes mellitus with hyperglycemia, with long-term current use of insulin ([facility]) (Primary Dx); Primary hypertension; Intellectual disability; Holland's [...] Description 01/06/2025 10:00 AM EDT Office Visit [facility] ADULT DENTAL [address] [place] [address] Scottie, Krista [address] [place] [address] documented as of this encounter Goals Goal [...] hyperglycemia, with long-term current use of insulin ([facility])- Primary Primary hypertension Unspecified essential hypertension Intellectual disability Unspecified mental retardation Holland's esophagus without dysplasia Moderate persistent asthma without complication documented in this encounter Additional Health Concerns Assessment Noted Time PHQ-9 Depression Total Score: 0 09/08/19 23 9:31 AM EST documented as of this encounter Care Teams Center Line Cutter Operator Relationship Specialty Start Date End Date Samra Marsh MD [address] [place] [address] PCP - General Family Medicine 08/21/18 Francois Rider PharmD [address] [place] [address] Pharmacist Internal Medicine 12/30/22 Yung Patel, RN [address] [place] [address] Vacuum Extractor OperatorBusiness Applications Specialist 11/20/23 Sharon Perez Community Health Worker Case Management 01/18/24 01/18/24 Brandon Jones Jr Vacuum Extractor OperatorBusiness Applications Specialist 05/10/24 [employer] 06/24/22 documented as of this encounter
--- OUTSIDE RECORDS SUMMARY | 2024-11-28 16:51 | XMS_ITS | Encounter Summary ---
Author Organization [email or web address] Address 75 [facility] 7t [place] [address] Care Team Providers Care Vacuum Truck Driver Name Role Phone Samra Marsh MD Primary Care Provider [phone] Francois Rider PharmD Unavailable [phone] Yung Patel RN Unavailable [phone] Reason for Referral * Consultation (Routine) - Authorized Specialty Diagnoses / Procedures Referred By Cristofer casiano Referred To Contact Pharmacy Diagnoses Type 2 diabetes mellitus with hyperglycemia, with long-term current use of insulin (CMS/HCC) Primary hypertension Samra Marsh MD [address] [place] [address] Phone: tel: fax: Referral ID Status Reason Start Date Expiration Date Visits Requested Visits Authorized [id number] Authorized Consult and Treat 10/24/2024 10/24/2025 6 6 Encounter Details Date Type Department Care Team (Late st Contact Info) Description 10/24/2024 Orders Only [facility] MEDICINE [address] [place] [address] [phone] Samra Marsh MD [address] [place], [place] [phone] Type 2 diabetes mellitus with hyperglycemia, with long-term current use of insulin (CMS/HCC) (Primary Dx); Primary hypertension Social History Tobacco Use Types Packs/Day Years [...] Description 01/06/2025 10:00 AM EDT Office Visit [facility] ADULT DENTAL [address] [place] [address] Krista Rubin [address] [place] [address] Scheduled Referrals Name Type Priority Associated Diagnoses Orde r Schedule Referral to Pharmacy CDTM Outpatient Referral Routine Type 2 diabetes mellitus with hyperglycemia, with long-term current use of insulin ([facility]) Primary hypertension Ordered: 10/24/2024 documented as of this encounter Goals [...] hyperglycemia, with long-term current use of insulin ([facility])- Primary Primary hypertension Unspecified essential hypertension documented in this encounter Additional Health Concerns Assessment Noted Time PHQ-9 Depression Total Score: 4 09/30/19 25 11:06 AM EST documented as of this encounter Care Teams Vacuum Truck Driver Relationship Specialty Start Date End Date Samra Marsh MD [address] [place] [phone] PCP - General Family Medicine 08/21/18 Francois Rider PharmD [address] [place] [phone] Pharmacist Internal Medicine 12/30/22 Yung Patel RN [address] [place] [phone] Sample WasherSpinning Supervisor 11/20/23 Brandon Jones Jr Sample WasherSpinning Supervisor 05/10/24 [employer] 06/24/22 documented as of this encounter
--- OUTSIDE RECORDS SUMMARY | 2024-11-28 16:51 | XMS_ITS | Encounter Summary ---
Author Organization [employer] Address 75 [facility] 7t [place] [address] Care Team Providers Care Textile Bag Sewer Name Role Phone Samra Marsh MD Primary Care Provider Francois Rider PharmD Unavailable Yung Patel RN Unavailable [phone] Encounter Details Date Type Department Care Team (Latest Contact Info) Description 11/26/2021 Abstract [facility] CONVERSIONS Dental, Provider, DDS Social History Tobacco [...] Description 01/06/2025 10:00 AM EDT Office Visit [facility] ADULT DENTAL [address] [place] [address] Scottie, Krista [address] [place] [address] documented as of this encounter Visit Diagnoses Not on filedocumented in this encounter Care Teams Textile Bag Sewer Relationship Specialty Start Date End Date Samra Marsh MD [address] [place], [place] [phone] PCP - General Family Medicine 08/21/18 Francois Rider, PharmD [address] [place] [address] Pharmacist Internal Medicine 12/30/22 Yung Patel, RN [address] [place] [address] Pattern ScratcherQuilt Sewer 11/20/23 Sharon Perez Community Health Worker Case Management 01/18/24 01/18/24 Brandon Jones Jr Pattern ScratcherQuilt Sewer 05/10/24 [employer] 06/24/22 documented as of this encounter
--- OUTSIDE RECORDS SUMMARY | 2024-11-28 16:51 | XMS_ITS | Encounter Summary ---
Author Organization [employer] Address [address] [facility] 7t [place] [address] Care Team Providers Care Wet Process Miller Head Name Role Phone Samra Marsh MD Primary Care Provider [phone] Francois Rider PharmD Unavailable Yung Patel RN Unavailable [phone] Encounter Details Date Type Department Care Team (Late Contact Info) Description 07/27/2022 Abstract [facility] MEDICINE [address] [place] [address] Samra Marsh MD 230 [place], [place] [phone] Social History Tobacco Use Types Packs/Day Years [...] Description 01/06/2025 10:00 AM EDT Office Visit [facility] ADULT DENTAL [address] [place] [address] Krista Rubin [address] [place] [address] documented as of this encounter Visit Diagnoses Not on filedocumented in this encounter Care Teams Wet Process Miller Head Relationship Specialty Start Date End Date Samra Marsh MD [address] [place] [phone] PCP - General Family Medicine 08/21/18 Francois Rider, TomásD [address] [place] [phone] Pharmacist Internal Medicine 12/30/22 Yung Patel RN [address] [place] [phone] Timber SelectorProperty Claims Manager 11/20/23 Sharon Perez Community Health Worker Case Management 01/18/24 01/18/24 Brandon Jones Jr Timber SelectorProperty Claims Manager 05/10/24 [employer] 06/24/22 documented as of this encounter
--- OUTSIDE RECORDS SUMMARY | 2024-11-28 16:51 | XMS_ITS | Encounter Summary ---
Author Organization [employer] Address 75 [facility] 7t [place] [address] Care Team Providers Care Biological Science Technician Fish Name Role Phone Samra Marsh MD Primary Care Provider [phone] Francois Rider PharmD Unavailable [phone] Yung Patel RN Unavailable [phone] Reason for Visit * Reason Onset Date Comments Appointment Request 10/22/2024 Encounter Details Date Type Department Care Team (Late st Contact Info) Description 10/22/2024 Telephone [facility] MEDICINE [address] [place], [place] [phone] Samra Marsh MD [address] [place], [place] [phone] Appointment Request Social History Tobacco Use Types Packs/Day Years [...] encounter Miscellaneous Notes * Telephone Encounter - Sariah Saxena - 10/22/2024 1:49 PM EST Tc from Brandon jamil's daytime caregiver requesting a call back to schedule physical appt. No availability, slots blocked. [phone] documented in this encounter Plan of Treatment Upcoming Encounters Date Type Department Care Team (Late st Contact Info) Description 01/06/2025 10:00 AM EDT Office Visit [facility] ADULT DENTAL [address] [place] [address] Scottie, Krista [address] [place] [address] documented as of this encounter Goals Goal Patient Goal Type Associated Problems Recent Progress Patient-Stated? Author Blood Pressure < 140/90 Blood Pressure 146/80(2024 4:47 PM EST) No Francois Rider, Jared Hemoglobin A1c < 7 Result Component 7(08/23/2024 10:15 AM EST) No Francois Rider PharmD documented as of this encounter Visit Diagnoses Not on filedocumented in this encounter Additional Health Concerns Assessment Noted Time PHQ-9 Depression Total Score: 4 09/30/19 25 11:06 AM EST documented as of this encounter Care Teams Biological Science Technician Fish Relationship Specialty Start Date End Date Samra Marsh MD [address] [place] [address] PCP - General Family Medicine 08/21/18 Francois Rider, TomásD [address] [place] [address] Pharmacist Internal Medicine 12/30/22 Yung Patel, MERVAT [address] [place] [phone] Compensation ExpertBusiness Process Architect 11/20/23 Brandon Jones Jr Compensation ExpertBusiness Process Architect 05/10/24 [employer] 06/24/22 documented as of this encounter
--- OUTSIDE RECORDS SUMMARY | 2024-11-28 16:52 | XMS_ITS | Encounter Summary ---
Author Organization [employer] Address [address] [facility] 7t [place] [address] Care Team Providers Care Straw Hat Brim Raiser Operator Name Role Phone Samra Marsh MD Primary Care Provider Francois Rider PharmD Unavailable Yung Patel RN Unavailable [phone] Encounter Details Date Type Department Care Team (Late st Contact Info) Description 04/27/2023 Telephone [facility] MEDICINE [address] [place], [place] [phone] Samra Marsh MD [address] [place], [place] [phone] Social History Tobacco Use Types Packs/Day Years [...] sensor and medications . Best contact number [phone]. documented in this encounter Plan of Treatment Upcoming Encounters Date Type Department Care Team (Late st Contact Info) Description 01/06/2025 10:00 AM EDT Office Visit [facility] ADULT DENTAL [address] [place] [address] Krista Rubin [address] [place] [address] documented as of this encounter Goals Goal [...] documented as of this encounter Care Teams Straw Hat Brim Raiser Operator Relationship Specialty Start Date End Date Samra Marsh MD [address] [place] [address] PCP - General Family Medicine 08/21/18 Francois Rider, Jared [address] [place] [address] Pharmacist Internal Medicine 12/30/22 Yung Patel, MERVAT [address] [place] [phone] End WorkerAdvertising Rep 11/20/23 Sharon Perez Community Health Worker Case Management 01/18/24 01/18/24 Brandon Jones Jr End WorkerAdvertising Rep 05/10/24 [employer] 06/24/22 documented as of this encounter
--- OUTSIDE RECORDS SUMMARY | 2024-11-28 16:52 | XMS_ITS | Encounter Summary ---
Author Organization [employer] Address 75 [facility] 7t [place] [address] Care Team Providers Care Mechanical Technical Service Specialist Name Role Phone Samra Marsh MD Primary Care Provider Francois Rider PharmD Unavailable [phone] Yung Patel RN Unavailable [phone] Reason for Visit * Reason Comments Med Refill Encounter Details Date Type Department Care Team (Late st Contact Info) Description 06/24/2023 Refill [facility] MEDICINE [address] [place], [place] [phone] Samra Marsh MD [address] [place], [place] [phone] Diabetic polyneuropathy associated with type 2 diabetes [...] Description 01/06/2025 10:00 AM EDT Office Visit [facility] ADULT DENTAL [address] [place] [address] Krista Rubin [address] [place] [address] documented as of this encounter Goals Goal Patient Goal Type Associated Problems Recent Progress Patient-Stated? Author Blood Pressure < 140/90 Blood Pressure 146/80(2024 4:47 PM EST) No Francois Rider PharmD Hemoglobin A1c < 7 Result Component 7(08/23/2024 10:15 AM EST) No Francois Rider PharmD documented as of this encounter Visit Diagnoses Diagnosis Diabetic polyneuropathy associated with type 2 diabetes mellitus ([facility]) documented in this encounter Additional Health Concerns Assessment Noted Time PHQ-9 Depression Total Score: 0 09/08/19 23 9:31 AM EST documented as of this encounter Care Teams Mechanical Technical Service Specialist Relationship Specialty Start Date End Date Samra Marsh MD [address] [place] [address] [phone] PCP - General Family Medicine 08/21/18 Francois Rider PharmD [address] [place] [address] [phone] Pharmacist Internal Medicine 12/30/22 Yung Patel, MERVAT [address] [place] [phone] Log GraderPiano Assembler 11/20/23 Sharon Perez Community Health Worker Case Management 01/18/24 01/18/24 Brandon Jones Jr Log GraderPiano Assembler 05/10/24 [employer] 06/24/22 documented as of this encounter
--- OUTSIDE RECORDS SUMMARY | 2024-11-28 16:52 | XMS_ITS | Encounter Summary ---
Author Organization [employer] Address 75 [facility] 7t [place] [address] Care Team Providers Care Churn Drill Operator Name Role Phone Samra Marsh MD Primary Care Provider [phone] Francois Rider PharmD Unavailable [phone] Yung Patel RN Unavailable [phone] Reason for Visit * Reason Comments Med Refill Encounter Details Date Type Department Care Team (Late st Contact Info) Description 11/25/2024 Refill [facility] MEDICINE [address] [place], [place] [phone] Francois Rider, PharmD [address] [place] [address] Primary hypertension Social History Tobacco Use Types [...] encounter Miscellaneous Notes * Telephone Encounter - Francois Rider PharmD - 11/27/2024 11:41 AM EDT Patient no showed CDTM visit 11/25/2024. Losartan prescription will be renewed. Pharmacy CHW to contact patient to reschedule. documented in this encounter Plan of Treatment Upcoming Encounters Date Type Department Care Team (Late st Contact Info) Description 01/06/2025 10:00 AM EDT Office Visit [facility] ADULT DENTAL [address] [place] [address] Scottie, Krista [address] [place] [address] documented as of this encounter Goals Goal Patient Goal Type Associated Problems Recent Progress Patient-Stated? Author Blood Pressure < 140/90 Blood Pressure 146/80(2024 4:47 PM EST) Francois Andres PharmD Hemoglobin A1c < 7 Result Component 7(08/23/2024 10:15 AM EST) Francois Andres PharmD documented as of this encounter Visit Diagnoses Diagnosis Primary hypertension Unspecified essential hypertension documented in this encounter Additional Health Concerns Assessment Noted Time PHQ-9 Depression Total Score: 4 09/30/19 25 11:06 AM EST documented as of this encounter Care Teams Churn Drill Operator Relationship Specialty Start Date End Date Samra Marsh MD [address] [place] [address] PCP - General Family Medicine 08/21/18 Francois Rider, Jared [address] [place] [address] Pharmacist Internal Medicine 12/30/22 Yung Patel, MERVAT [address] [place] [phone] Jordan WorkerDirector Construction Services 11/20/23 Brandon Jones Jr Jordan WorkerDirector Construction Services 05/10/24 [employer] 06/24/22 documented as of this encounter
--- OUTSIDE RECORDS SUMMARY | 2024-11-28 16:52 | XMS_ITS | Encounter Summary ---
Author Organization [employer] Address 75 [facility] 7t [place] [address] Care Team Providers Care Cylinder Press Operator Name Role Phone Samra Marsh MD Primary Care Provider [phone] Francois Rider PharmD Unavailable [phone] Yung Patel RN Unavailable [phone] Reason for Visit * Reason Comments Med Refill Encounter Details Date Type Department Care Team (Late st Contact Info) Description 11/27/2024 Refill [facility] MEDICINE [address] [place], [place] [phone] Samra Marsh MD [address] [place], [place] [phone] Diabetic polyneuropathy associated with type 2 diabetes mellitus (CMS/HCC); Primary hypertension Social History Tobacco Use Types [...] the past 12 months, has t he [employer], gas, oil or water company threatened to [...] encounter Miscellaneous Notes * Telephone Encounter - Elzbieta Gonzales - 11/27/2024 11:45 AM EDT Pharmacy CHW attempted outreach call on 11/27/24 for CDTM - Diabetes appointment; however, unable to reach patient. LVM for patient to contact Elzbieta Gonzales at [phone]. documented in this encounter Plan of Treatment Upcoming Encounters Date Type Department Care Team (Late st Contact Info) Description 01/06/2025 10:00 AM EDT Office Visit [facility] ADULT DENTAL [address] [place], [place] [phone] Scottie, Krista [address] [place] [address] documented as of this encounter Goals Goal Patient Goal Type Associated Problems Recent Progress Patient-Stated? Author Blood Pressure < 140/90 Blood Pressure 146/80(2024 4:47 PM EST) No Francois Rider, PharmNick Hemoglobin A1c < 7 Result Component 7(08/23/2024 10:15 AM EST) No Francois Rider, PharmD documented as of this encounter Visit Diagnoses Diagnosis Diabetic polyneuropathy associated with type 2 diabetes mellitus (CMS/HCC) Primary hypertension Unspecified essential hypertension documented in this encounter Additional Health Concerns Assessment Noted Time PHQ-9 Depression Total Score: 4 09/30/19 25 11:06 AM EST documented as of this encounter Care Teams Cylinder Press Operator Relationship Specialty Start Date End Date Samra Marsh MD [address] [place] [address] PCP - General Family Medicine 08/21/18 Francois Rider, PharmD [address] [place] [address] Pharmacist Internal Medicine 12/30/22 Yung Patel RN [address] [place] [phone] Hospitality Team MemberRetail Sales Merchandiser Development 11/20/23 Brandon Jones Jr Hospitality Team MemberRetail Sales Merchandiser Development 05/10/24 [employer] 06/24/22 documented as of this encounter
--- OUTSIDE RECORDS SUMMARY | 2024-11-28 16:52 | XMS_ITS | Encounter Summary ---
Author Organization [employer] Address 75 [facility] 7t [place] [address] Care Team Providers Care Information Security Director Name Role Phone Samra Marsh MD Primary Care Provider [phone] Francois Rider PharmD Unavailable [phone] Yung Patel RN Unavailable [phone] Reason for Visit * Reason Comments Med Refill Encounter Details Date Type Department Care Team (Late st Contact Info) Description 11/27/[address] [facility] MEDICINE [address] [place], [place] [phone] Pj Simmons MD [address] [place], [place] [phone] Social History Tobacco Use Types Packs/Day Years [...] Description 01/06/2025 10:00 AM EDT Office Visit [facility] ADULT DENTAL [address] [place] [address] Scottie, Krista [address] [place] [address] documented as of this encounter Goals Goal [...] documented as of this encounter Care Teams Information Security Director Relationship Specialty Start Date End Date Samra Marsh MD [address] [place] [address] PCP - General Family Medicine 08/21/18 Francois Rider PharmD [address] [place] [address] Pharmacist Internal Medicine 12/30/22 Yung Patel, MERVAT [address] [place] [phone] Customer Success AdvocatePolitical Consultant 11/20/23 Brandon Jones Jr Customer Success AdvocatePolitical Consultant 05/10/24 [employer] 06/24/22 documented as of this encounter
--- OUTSIDE RECORDS SUMMARY | 2024-11-28 16:52 | XMS_ITS | Clinical Summary ---
Author Organization [employer] Address [address] [place] [address] Care Team Providers Care Drafter [employer] Name Role Phone Samra Marsh MD Primary Care Provider [phone] Francois Rider PharmD Unavailable [phone] Yung Patel RN Unavailable [phone] Allergies Active Allergy Reactions Criticality Noted Date Comments Shellfish-Derived Products High 1 Medications ProAir HFA 108 (90 Base) MCG/ACT inhaler Inhale 2 puffs every 4 (four) hours if needed for shortness of breath or wheezing. Active buPROPion SR (Wellbutrin SR) 100 MG 12 hr tablet Take 1 tablet by mouth at bed time. Active Dexilant [address] capsule Take 1 capsule by mouth in the morning. Active EPINEPHrine (Epipen) 0.3 MG/0.3ML injection syringe Inject 0.3 mg as directed 1 (one) time if needed for allergies or anaphylaxis. 022 Active OXcarbazepine (Trileptal) 150 MG tablet Take 1 tablet by mouth in the morning and at bedtime. Active risperiDONE (RisperDAL) 0.5 MG tablet Take 1 tablet by mouth Once per day. At bedtime Active sucralfate (Carafate) 1 g tablet Take 1 tablet by mouth every 12 (twelve) hours. Active doxepin (SINEquan) 10 MG capsule TAKE 1 CAPSULE BY MOUTH AT BEDTIME FOR SLEEP Active famotidine (Pepcid) 40 MG tablet TAKE 1 TABLET BY MOUTH AT BEDTIME 90 tablet 3 023 Active atorvastatin (Lipitor) 20 MG tablet TAKE 1 TABLET BY MOUTH AT BEDTIME 90 tablet 3 024 Active metFORMIN XR (Glucophage-XR) 500 MG 24 hr tablet TAKE 2 TABLETS BY MOUTH TWICE DAILY IN THE MORNING AND AT BEDTIME 360 tablet 3 Active Acetaminophen Extra Strength 500 MG tabletIndications :Acute right-sided low back pain without sciatica Take 1,000 mg by mouth every 8 (eight) hours if needed (pain). No more than 6 tabs per day 60 tablet Active aspirin (Aspirin Low Dose) 81 MG EC tabletIndications :Uncontrolled type 2 diabetes mellitus with hyperglycemia (CMS/HCC) TAKE 1 TABLET BY MOUTH EVERY MORNING 90 tablet 3 Active glucose blood (FREESTYLE LITE) test stripIndications: Type 2 diabetes mellitus with hyperglycemia, with long-term current use of insulin (CMS/HCC) Use to test blood sugar 3 times daily 100 each 024 2024 Active Lancets miscIndications:T ype 2 diabetes mellitus with hyperglycemia, with long-term current use of insulin (CMS/[facility]) Use to test blood sugar 3 times daily 100 each Active Blood Glucose Monitoring Suppl (FreeStyle [place] Lite) w/Device kitIndications:Ty pe 2 diabetes mellitus with hyperglycemia, with long-term current use of insulin (CMS/HCC) Use to test blood sugar 3 times daily 1 kit Active pen needle 31G x 5 mm miscIndications:T ype 2 diabetes mellitus with hyperglycemia, with long-term current use of insulin (CMS/HCC) Use to inject insulin once daily 100 each 3 024 2024 Active insulin degludec (Tresiba FlexTouch) 100 UNIT/ML injectionIndicati ons:Type 2 diabetes mellitus with hyperglycemia, with long-term current use of insulin (CMS/HCC) Administer 26 units once a day. 15 mL 5 Active UltiCare Alcohol Swabs 70 % padsIndications:T ype 2 diabetes mellitus with hyperglycemia (CMS/HCC) Use topically four times daily to check blood glucose and with insulin. 100 each 024 Active Trulicity 3 MG/0.5ML solution auto-injectorIndi cations:Type 2 diabetes mellitus with hyperglycemia, with long-term current use of insulin ([facility]) INJECT ONE PEN (= 3MG) SUBCUTANEOUSLY ONCE A WEEK DIRECTED 2 mL 5 025 Active losartan (Cozaar) 25 MG tabletIndications :Primary hypertension TAKE 1 TABLET BY MOUTH EVERY MORNING 90 tablet 1 025 Active Fluticasone-Salme terol (Advair Diskus) 250-50 MCG/ACT aerosol powder INHALE 1 PUFF BY MOUTH TWICE DAILY IN THE MORNING AND IN THE EVENING APPROXIMATELY 12 HOURS APART. RINSE MOUTH AFTER USING. 1 each Active gabapentin (Neurontin) 300 MG capsuleIndication s:Diabetic polyneuropathy associated with type 2 diabetes mellitus (CMS/HCC) TAKE 1 CAPSULE BY MOUTH TWICE DAILY IN THE MORNING AND AT BEDTIME 60 capsule 3 Active losartan (Cozaar) 25 MG tabletIndications :Primary hypertension Take 1 tablet by mouth once daily 90 tablet 1 025 Active fluticasone (Flonase) 50 MCG/ACT nasal spray USE 1 SPRAY IN EACH NOSTRIL ONCE DAILY 48 g 025 Active Advair Diskus 250-50 MCG/ACT aerosol powder INHALE 1 PUFF BY MOUTH TWICE DAILY IN THE MORNING AND IN THE EVENING (APPROXIMATELY 12 HOURS APART) RINSE MOUTH AFTER USING. 60 each 024 2024 Discontinued losartan (Cozaar) 25 MG tabletIndications :Primary hypertension Take 1 tablet by mouth once daily 90 tablet 1 024 2024 Discontinued fluticasone (Flonase) 50 MCG/ACT nasal spray INSTILL 1 SPRAY IN EACH NOSTRIL ONCE DAILY 48 g 024 2024 Discontinued gabapentin (Neurontin) 300 MG capsuleIndication s:Diabetic polyneuropathy associated with type 2 diabetes mellitus (CMS/HCC) TAKE 1 CAPSULE BY MOUTH TWICE DAILY IN THE MORNING AND AT BEDTIME 60 capsule 3 024 2024 Discontinued Active Problems Problem Noted Date Diagnosed Date [...] esophagus without dysplasia 07/28/2022 Assessment & Plan (10/02/2024 6:36 AM EST): GI C, seen on 05/25/22. 2017 EGD showed Holland's esophagus 2021 EGD no metaplasia Continue Dexilant, famotidine, and sucralfate as prescribed by GI Advised patient to call GI office for next appointment Assessment & Plan (11/24/2023 9:24 AM EDT): ANGEL C, seen on 05/25/22. 2017 EGD showed Holland's esophagus 2021 EGD no metaplasia Continue Dexilant, famotidine, and sucralfate as prescribed by GI Will check the status of next GI appointment Assessment & Plan (04/27/2023 11:44 AM EDT): ?? GI, C, seen on 05/25/22. ?? 2017 EGD showed [...] GI Intellectual disability 07/28/2022 Assessment & Plan (10/02/2024 6:38 AM EST): Receiving visiting nurse service to assist in diabetes care Assessment & Plan (04/27/2023 11:46 AM EDT): [...] care Primary hypertension 07/28/2022 Assessment & Plan (10/02/2024 6:35 AM EST): Goal BP < 140/90 per JNC-8 and < 130/80 per ACC/AHA guideline BP not at goal Co-managed with our pharmacist through [facility] Treatment Hx: Lisinopril was switched to losartan due to cough Continue current lifestyle modifications Continue current medication Losartan 25 mg daily Follow up in 3-6 mo, sooner if any problem arises Assessment & Plan (11/24/2023 9:16 AM EDT): [...] 2 diabetes mellitus 12/12/2018 Assessment & Plan (10/02/2024 6:40 AM EST): Dx November 2018 Hgb A1C 7.0% on 08/23/24 Co-managed with our pharmacist through [facility] Continue working on lifestyle modifications Continue checking BG. Glucose monitoring system - Freestyle Lite, will switch to Freestyle Rafael. Continue metformin ER 1000 mg bid Continue Trulicity 3.0 mg wkly Continue basal insulin Tresiba. Currently at 26 [...] 55; LDL 85 Diabetic eye exam: 06/20/22, [facility], no diabetic retinopahy Foot exam: 09/30/24 Foot exam showed decreased sensation of his toes. Assessment & Plan (11/24/2023 11:42 AM EDT): [...] 55; LDL 85 Diabetic eye exam: 06/20/22, [facility], no diabetic retinopahy Foot exam: 01/24/23 [...] LDL 85 ?? Diabetic eye exam: 06/20/22, [facility], no diabetic retinopahy ?? Foot exam: [...] LDL 85 ?? Diabetic eye exam: 06/20/22, [facility], no diabetic retinopahy ?? Foot exam: 01/24/23 [...] LDL 85 ?? Diabetic eye exam: 06/20/22, [facility], no diabetic retinopahy ?? Foot exam: [...] LDL 85 ?? Diabetic eye exam: 06/20/22, [facility], no diabetic retinopahy ?? Foot exam: [...] LDL 85 ?? Diabetic eye exam: 06/20/22, [facility], no diabetic retinopahy ?? Foot exam: [...] name but I don't think #'s) Lin Fan agrees to outreach pt for insulin teaching, [...] LDL 147 ?? Diabetic eye exam: 06/20/22, C, no diabetic retinopahy ?? Foot exam: 10/14/20. Pt declines foot exam today Sacroiliac joint dysfunction of left side 2016 Moderate persistent asthma 07/07/2015 Assessment & Plan (10/02/2024 6:34 AM EST): Supervisor Carpenters: Dr. Acosta, last seen in Jun 2024 PFT 11/21/18 mild restrictive pulmonary disorder without obstructive disorder Last exacerbation > 1 year ago Continue Advair and Singulair as maintenance Continue albuterol HFA outside and neb at home prn Pt reports nebulizer treatment is more effective than inhaler Follow up in 3-6 mo sooner if any problem arises Keep immunizations up to date Assessment & Plan (11/24/2023 9:34 AM EDT): Supervisor Carpenters: Dr. Acosta, last seen on 09/27/21 PFT [...] & Plan (04/27/2023 11:46 AM EDT): ?? Supervisor Carpenters: Dr. Acosta, last seen on 09/27/21 ?? [...] & Plan (01/24/2023 10:15 AM EDT): ?? Supervisor Carpenters: Dr. Acosta, last seen on 09/27/21 ?? [...] & Plan (10/19/2022 12:55 PM EST): ?? Supervisor Carpenters: Dr. Acosta, last seen on 09/27/21 ?? [...] & Plan (09/15/2022 4:22 AM EST): ?? Supervisor Carpenters: Dr. Acosta, last seen on 09/27/21 ?? [...] Plan (09/08/2022 9:42 AM EST): Seen by Supervisor Carpenters on 09/27/21, persistent cough. -PFT 11/21/18: mild restrictive pulmonary disorder without obstructive disorder -CXR shows atelectasis -Abnormal lung exam including baseline crackles -Continue Advair and Singulair as maintenance -Continue albuterol HFA outside and neb at home prn as rescue -Pt reports nebulizer treatment is more effective than inhaler. Schedule for COVID vaccine Re-refer to Dr. Acosta, strategic solutions consultant Assessment & Plan (07/28/2022 3:55 PM EST): ?? Supervisor Carpenters: Dr. Acosta, last seen on 09/27/21 ?? [...] (11/24/2023 9:24 AM EDT): - Following with [facility] - Continue Dexilant, famotidine, and sucralfate - Avoid NSAIDs Assessment & Plan (09/15/2022 4:25 AM EST): - Following with [facility] GI - Continue Dexilant, famotidine, and sucralfate - Avoid NSAIDs Assessment & Plan (09/08/2022 9:45 AM EST): Seen by GI on 04/14/19 Continue PPI / H2 nimisha as prescribed by GI Avoid NSAIDs. Foot pain 07/26/2012 Hypertriglyceridemia 07/26/2012 Assessment & Plan (10/02/2024 6:38 AM EST): -Last fasting lipid profile: 09/08/22 TC 163; TG 131; HDL 55; LDL 85 -Current medication: Atorvastatin 20 mg daily -Continue current moderate intensity statin therapy -Urged to get his lab done Assessment & Plan (04/27/2023 11:45 AM EDT): [...] with psychotic features 01/2012 Assessment & Plan (10/02/2024 6:38 AM EST): - [facility] providers: [facility] / [facility]. Psychiatrist: Dr. Maier - Current medications: oxcarbazepine; risperidone; bupropion; trazodone - Previous medications: Quetiapine, zolpidem, Valproic acid - pt has visiting nurse. Referred to care management in the past. The program was ended. Assessment & Plan (04/27/2023 11:48 AM EDT): - [facility] providers: [facility] / [facility]. Psychiatrist: Dr. Maier - Current medications: oxcarbazepine; risperidone; bupropion; trazodone - Previous medications: Quetiapine, zolpidem, Valproic acid - pt has visiting nurse. Referred to care management in the past. The program was ended. Assessment & Plan (01/24/2023 10:17 AM EDT): - [facility] providers: [facility] / [facility]. Psychiatrist: Dr. Maier - Current medications: oxcarbazepine; risperidone; bupropion; trazodone - Previous medications: Quetiapine, zolpidem, Valproic acid - pt has visiting nurse. Referred to care management in the past. The program was ended. Assessment & Plan (10/19/2022 12:59 PM EST): - [facility] providers: [facility] / [facility]. Psychiatrist: Dr. Maier - Current medications: oxcarbazepine; risperidone; bupropion; trazodone - Previous medications: Quetiapine, zolpidem, Valproic acid - pt will benefit from having [employer] and/or visiting nurse service - pt will benefit from having long-term care management Assessment & Plan (09/08/2022 9:44 AM EST): [facility] providers: [facility] / [facility]. Psychiatrist: Dr. Maier Current medications?: Seroquel XR 100 mg qhs and 25mg prn, Wellbutrin 150 mg qam -Discontinued zolpidem and Valproic acid -pt will benefit form having [facility] to organize his medical appt's Resolved Problems Problem Noted Date Diagnosed Date Resolved Date Asthma 02/23/2012 09/08/2022 Encounters Date Type Department Care Team Description 11/27/2024 Refill [facility] MED[facility] [address] [place] [address] Pj Simmons MD 11/27/2024 Refill [facility] [address], [place] [phone] Samra Marsh MD Diabetic polyneuropathy associated with type 2 diabetes mellitus ([facility]/HCC); Primary hypertension 11/25/2024 Refill [facility] MED[facility] [address], [place] [phone] Francois Rider, Jared Primary hypertension 11/01/2024 Population Health Risk Score Community 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 associated with type 2 diabetes mellitus (CMS/HCC) (Primary Dx); Age-related nuclear cataract of left eye; Peripapillary atrophy of right eye; Corectopia; Aphakia of right eye; Presbyopia 10/28/2024 Travel 10/24/2024 Orders Only [facility] [address] [place] [address] Samra Marsh MD Type 2 diabetes mellitus with hyperglycemia, with long-term current use of insulin (CMS/HCC) (Primary Dx); Primary hypertension 10/23/2024 Telephone [facility] [address] [place] [address] Samra Marsh MD 10/23/2024 Refill [facility] [address] [place] [address] Francois Rider, Jared Type 2 diabetes mellitus with hyperglycemia, with long-term current use of insulin (CMS/HCC) 10/22/2024 Telephone [facility] [address] [place] [address] Samra Marsh MD Appointment Request 09/30/2024 11:15 AM EST Office Visit [facility] MED[facility]INE [address] [place] [address] Samra Marsh MD Type 2 diabetes mellitus with hyperglycemia, with long-term current use of insulin (CMS/HCC) (Primary Dx); Holland's esophagus without dysplasia; Primary hypertension; Moderate persistent asthma without complication; Need for COVID-19 vaccine; Hypertriglyceridemia; Intellectual disability; Severe mood disorder with psychotic features (CMS/HCC) 09/30/2024 Orders Only [facility] [address] [place] [address] Samra Marsh MD 09/30/2024 Travel 09/25/[address] [address] Claudette Patel MA chart prep from Last 3 Months Immunizations Name Administration [...] Sign Reading Time Taken Comments Blood Pressure 146/80 09/30/2024 4:47 PM EST Pulse 75 09/30/2024 11:16 AM EST [...] Description 01/06/2025 10:00 AM EDT Office Visit [facility] ADULT DENTAL [address] [facility], [place] [phone] [place] [address] Health Maintenance Due Date Last Done Comments CT Colonography 1963 FIT DNA/Cologuard 1963 FIT 1963 FOBT 1963 Sigmoidoscopy 1963 Dental Oral Exam 05/26/2024 11/24/2023, 03/2022, 08/31/2020, Additional history exists Diabetes: Hemoglobin A1C 11/21/2024 025, 05/10/2024, 01/22/2024, Additional history exists SDOH Screening 11/22/2024 11/23/2023 Dental X-Ray: Bitewings 11/24/2024 11/24/19 24, 11/26/2021, 08/31/2020, Additional history exists Dental X-Ray: Full Mouth 11/27/2024 11/26/2021, 03/21 Dental Prophylaxis 01/03/2025 07/05/2024, 0 11/24/2023, 11/26/2021, Additional history exists Alcohol/Substance Use Screening 09/30/2025 09/30/2024 Depression Screening 09/30/2025 09/30/2024, 09/30/19 25 Diabetes: Foot Exam 09/30/2025 09/30/2024, 09/30/2024, 01/24/2023, Additional history exists Diabetes: Urine Protein Screening 09/30/2025 09/30/2024, 04/27/2023, 04/27/2023, Additional history exists Lipid Panel 09/30/2025 09/30/2024, 0902/2023, 09/08/2022, Additional history exists Eye Exam 10/28/2025 10/28/2024, 10/19, 10/28/2024, Additional history exists Tobacco Screening 11/13/2025 11/13/2024 DTaP/Tdap/Td Vaccines (3 - Td or Tdap) [...] Procedure Name Priority Date/Time Associated Diagnosis Comments OCT, RETINA - OU - BOTH EYES Routine 10/28/2024 10:30 AM EDT 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 associated with type 2 diabetes mellitus (CMS/HCC) ALBUMIN, RANDOM URINE W/CREATININE Routine 09/30/2024 11:44 AM EST LIPID PANEL, STANDARD Routine 09/30/2024 11:44 AM EST BASIC METABOLIC PANEL Routine 09/30/2024 11:44 AM EST HEPATIC FUNCTION PANEL Routine 09/30/2024 11:44 AM EST POCT GLUCOSE Routine 09/30/2024 11:07 AM EST Type 2 diabetes mellitus with hyperglycemia, with long-term current use of insulin (CMS/HCC) POCT GLYCATED HEMOGLOBIN, TOTAL Routine 08/23/2024 10:15 AM EST Type 2 diabetes mellitus with hyperglycemia, with long-term current use of insulin (CMS/HCC) PROPHYLAXIS - ADULT Routine 07/05/2024 1 :00 PM EST Dental plaque BITEWINGS - 4 RADIOGRAPHIC IMAGES Routine 11/24/2023 8:00 AM EDT Dental plaque Dental caries Localized gingival recession PERIODIC ORAL EVALUATION - ESTABLISHED PATIENT Routine 11/24/2023 8:00 AM EDT HEPATITIS C AB W/REFL TO HCV RNA, QN, PCR Routine 09/08/2022 10:06 AM EST Routine screening for STI (sexually transmitted infection) HIV 1/2 ANTIGEN/ANTIBODY, FOURTH GENERATION W/RFL Routine 09/08/2022 10:06 AM EST Routine screening for STI (sexually transmitted infection) HM COLONOSCOPY Routine 09/08/2022 9:57 AM EST INTRAORAL - COMPLETE SERIES OF RADIOGRAPHIC IMAGES Routine 11/26/2021 12:00 AM EDT from Last 3 Months or Most Recently Relevant to Health Maintenance Results * OCT, Retina - OU - Both Eyes (10/28/2024 10:30 AM EDT) Narrative Dora Wolfe, OD - 11/15/2024 1:37 PM EDT OCT [facility] [employer] Optical Coherence Tomography Interpretation Report Measurements: OD ??OS Macula Thickness ??213 microns ??236 microns Test findings: OD: Normal foveal contour, no cystoid macular edema (CME), no retinal pigment epithelium (RPE) disruption, no subretinal fluid (SRF) OS: Normal foveal contour, no cystoid macular edema (CME), no retinal pigment epithelium (RPE) disruption, no subretinal fluid (SRF) Impression and Plan: Mild non-proliferative diabetic retinopathy (NPDR) without diabetic retinopathy (DR). Will monitor at his next exam. Dora Wolfe OD OPHTH TOMOGRAPHY Final Result * Albumin, Random Urine W/Creatinine (09/30/2024 11:44 AM EST) Creatinine, Urine 411.52 mg/dL [facility] Microalbumin Urine 56.0 mg/L [facility] Microalbum Creatinine Ratio Ur 13.6 <30 ug/mg cr [facility] Comment:Albumin/Creatinine R atio Reference Ranges: Normal: < 30 ug/mg creatinine Microalbuminuria: 30 - 300 ug/mg creatinineClinical Albuminuria: > 300 ug/mg creatinine 09/30/2024 11:4 4 AM EST 09/30/2024 1:11 PM EST Samra Marsh MD LAB URINE ORDERABLES Final Resul t [facility] [address] [place] [address] [phone] * (ABNORMAL) Hepatic Function Panel (09/30/2024 11:44 AM EST) Bilirubin, Total 0.4 0.0 - 1.0 mg/dL [facility] Bilirubin, Direct 0.2 0.0 - 0.5 mg/dL [facility] Aspartate Amino Transferase 35 5 - 37 U/L [facility] Alanine Aminotransferase 44(H) 0 - 40 U/L [facility] Total Protein 8.3(H) 6.5 - 8.0 g/dL [facility] Albumin Level 4.3 3.5 - 5.0 g/dL [facility] Alkaline Phosphatase 104 39 - 117 U/L [facility] 09/30/2024 11:4 4 AM EST 09/30/2024 1:14 PM EST Samra Marsh MD LAB BLOOD ORDERABLES Final Resul t Performing Organization Address [facility] de Phone Number [facility] [address] [place] [phone] * (ABNORMAL) Lipid Panel, Standard (09/30/2024 11:44 AM EST) Triglycerides 169(H) <150 mg/dL [facility] Comment:Desirable Triglyceri de: less than 150 mg/dLBorderline High Triglyceride 150-199 mg/dLHigh Triglyceride: 200-499 mg/dLVery High Triglyceride: greater than or equal to 5OO mg/dL Cholesterol 158 <200 mg/dL [facility] Comment:Desirable Cholestero l: less than 200 mg/dLBorderline High Cholesterol: 200-239 mg/dLHigh Cholesterol: greater than 239 mg/dL LDL Cholesterol Calculated 76 <100 mg/dL [facility] Comment:Desirable LDL: less than 100 mg/dLNear Optimal/Above Optimal LDL: 110- 129 mg/dLBorderline High LDL: 130-159 mg/dLHigh LDL: 160-189 mg/dLVery High LDL: greater than or equal to 190 mg/dL HDL Cholesterol 49 >40 mg/dL [facility] Comment:Desirable HDL: great er than 40 mg/dL Note: This HDL assay may give artificially low results in patients with liver disease. 09/30/2024 11:4 4 AM EST 09/30/2024 1:14 PM EST Samra Marsh MD LAB BLOOD ORDERABLES Final Resul t Performing Organization Address [facility] Co de Phone Number [facility] [address] [place] [phone] * (ABNORMAL) Basic Metabolic Panel (09/30/2024 11:44 AM EST) Sodium 143 135 - 145 mmol/L [facility] Potassium 3.8 3.3 - 5.1 mmol/L [facility] Chloride 110(H) 96 - 108 mmol/L [facility] Carbon Dioxide 26 22 - 29 mmol/L [facility] Anion Gap 11(L) 12 - 20 [facility] Urea Nitrogen (BUN) 11 9 - 16 mg/dL [facility] Creatinine, Serum 0.89 0.5 - 1.4 mg/dL [facility] Estimated Glomerular Filt Rate >60 [facility] Comment:Chronic Kidney Disea se: Estimated GFR < 60 mL/min/[id number] Kidney Disease: Estimated GFR < 15 mL/min/1.73m2 Glucose 100 60 - 115 mg/dL [facility] Calcium 9.8 8.4 - 10.2 mg/dL [facility] 09/30/2024 11:4 4 AM EST 09/30/2024 1:14 PM EST Samra Marsh MD LAB BLOOD ORDERABLES Final Resul t Performing Organization Address City/State/[facility] Co de Phone Number [facility] [address] [place] [address] [phone] * POCT glucose manually resulted (09/30/2024 11:07 [...] Media Lot # [id number] Lot# Expiration Date Blood 08/23/2024 10:1 5 AM EST Samra Marsh MD POINT OF CARE TEST ENTER/EDIT OR DERABLES Final Result * Hepatitis C Antibody with Reflex to HCV, RNA, Quantitative, Real-Time PCR (09/08/2022 10:06 AM EST) Hepatitis C Antibody NON-REACT PETER NON-REACT PETER [facility] Index <0.02 <1.00 [facility] Comment: HCV antibody was non-reactive. There is no laboratory evidence of HCV infection. In most cases, no further action is required. However, if recent HCV exposure is suspected, a test for HCV RNA (test code 68734) is suggested. For additional information please refer to http://education.BuildingLayer/faq/ITP10x1 (This link is being provided for informational/ educational purposes only.) Blood Venous blood specimen / Unknown 09/08/2022 10:06 AM EST 09/08/2022 10:07 AM EST Narrative [facility] - 09/12/2022 10:07 PM EST FASTING:NO FASTING: NO Tawny Bass MD LAB BLOOD ORDERABLES Final Result [facility] [address] [facility], [facility], [place] [phone] [facility] [address] [facility], ([address]) [place] [phone] * HIV-1/2 Antigen and Antibodies, Fourth Generation, with Reflexes (09/08/2022 10:06 AM EST) Pathologist [facility] HIV Antigen/Antibody, 4th Generation NON-REAC TIVE NON-REAC TIVE katena [employer] [place] [employer] Comment: HIV-1 antigen and HIV-1/HIV-2 antibodies were [...] ?? For additional information please refer to [email or web address] [email or web address] Software/faq/[id number] (This link is being provided for informational/ educational purposes only.) The performance of this assay has not been clinically validated in patients less than 2 years old. Blood Venous blood specimen / Unknown 09/08/2022 10:06 AM EST 09/08/2022 10:07 AM EST Narrative [facility] - 09/12/2022 10:07 PM EST FASTING:NO FASTING: NO Tawny Bass MD LAB BLOOD ORDERABLES Final Result [facility] [address], [place] [address] katena [facility] [address] [facility], (Nl[address]) [place] [address] * Hm Colonoscopy (09/08/2022 9:57 AM EST) Historical Provider HEALTH MAINTENANCE Final Result from Last 3 Months or Most Recently Relevant to Health Maintenance Insurance [facility] C3 [facility] [facility] [employer] STAND ADULT Care Teams Drafter Heating And Ventilating Relationship Specialty Start Date End Date Samra Marsh MD [address] [place] [address] PCP - General Family Medicine 08/21/18 Francois Rider, Jared [address] [place] [address] Pharmacist Internal Medicine 12/30/22 Yung Patel, MERVAT [address] [place] [address] Dog BarberHighway Research Engineer 11/20/23 Brandon Jones Jr Dog BarberHighway Research Engineer 05/10/24 [employer] 06/24/22
--- OUTSIDE RECORDS SUMMARY | 2024-11-28 16:52 | XMS_ITS | Encounter Summary ---
Author Organization [employer] Address [address] [facility] [address] 7[address] [place] [address] Care Team Providers Care Coupler Name Role Phone Samra Marsh MD Primary Care Provider [phone] Francois Rider PharmD Unavailable [phone] Yung Patel RN Unavailable [phone] Encounter Details Date Type Department Care Team (Late st Contact Info) Description 12/18/2023 Orders Only [facility] MEDICINE [address] [place] [address] Provider, MD Anam Social History Tobacco Use [...] Description 01/06/2025 10:00 AM EDT Office Visit [facility] ADULT DENTAL [address] [place] [address] Scottie, Krista [address] [place] [address] documented as of this encounter Goals Goal [...] documented as of this encounter Care Teams Coupler Relationship Specialty Start Date End Date Samra Marsh MD [address] [place] [address] PCP - General Family Medicine 08/21/18 Francois Rider PharmD [address] [place] [address] Pharmacist Internal Medicine 12/30/22 Yung Patel RN [address] [place] [address] Back Up Scan CoordinatorCentral Station Operator 11/20/23 Sharon Perez Community Health Worker Case Management 01/18/24 01/18/24 Brandon Jones Jr Back Up Scan CoordinatorCentral Station Operator 05/10/24 [employer] 06/24/22 documented as of this encounter
[2024-12-20 13:42] VITALS: BMI 34.9
--- NOTE | 2024-12-23 12:59 | P.CONAN_ITS ---
Documented by User: Mary Stevenson NP 12/23/24 13:01 HPI - Anesthesia Eval Consult details Narrative: 59yo M for Colonoscopy Anesthesia Pre-Procedure Meds Is the patient on any of the following meds?: GLP1/DPP4 PMFSH Active Problems Active Problems: All Active Problems Asthma (Acute) Pre-op examination (Acute) Bronchospasm (Acute) GERD with esophagitis (Acute) Holland's esophagus (Acute) Dysphagia (Acute) COPD (chronic obstructive pulmonary disease) (Acute) Allergic rhinitis (Acute) Cough (Acute) Past Medical History Medical History (Updated 12/23/24 @ 13:00 by Mary Stevenson NP) Diabetes Asthma Bronchospasm History of dysphagia GERD (gastroesophageal reflux disease) History of Holland's esophagus COPD (chronic obstructive pulmonary disease) Allergic rhinitis Cough Family History Family History Sister Leukemia Surgical History Surgical History Hx of abdominal surgery Hx of colonoscopy History of esophagogastroduodenoscopy (EGD) Social History Social History Household Members: None Alcohol intake: never Patient Tobacco Use Status: Former Tobacco user Have you been hit, kicked, punched, or otherwise hurt by someone within the past year? If so, by whom?: No Advance Directives: No Advance Directives Information Provided: Yes Current occupational status: unemployed Meds Allergies Allergy/AdvReac Type Severity Reaction Status Date / Time No Known Allergies Allergy Verified 07/15/24 11:20 [No Known Allergies*] Home Medications ?Medication ?Instructions ?Recorded ?Confirmed ?Last Taken ?Type bupropion HCl 100 mg tablet,12 hr 100 mg PO DAILY 11/23/20 09/27/21 Unknown History sustained-release gabapentin 300 mg capsule 300 mg PO BID 11/23/20 09/27/21 Unknown History lisinopril 2.5 mg tablet 2.5 mg PO DAILY 11/23/20 09/27/21 Unknown History oxcarbazepine 150 mg tablet 150 mg PO BID 11/23/20 09/27/21 Unknown History (Trileptal) risperidone 0.5 mg tablet 0.5 mg PO BID 11/23/20 09/27/21 Unknown History albuterol sulfate 2.5 mg/3 mL mg inhalation QID PRN 10/26/21 Unknown History (0.083 %) solution for nebulization fluticasone 250 mcg-salmeterol 50 1 ea PO 10/26/21 Unknown History mcg/dose blistr powdr for inhalation (Advair Diskus) losartan 25 mg tablet 12.5 mg PO QAM 10/26/21 Unknown History alcohol swabs (Alcohol Prep Pads) pad topical TID diabetes mellitus 05/25/22 Unknown History atorvastatin 20 mg tablet 20 mg PO BEDTIME 05/25/22 Unknown History blood sugar diagnostic (OneTouch #10 ea 05/25/22 Unknown History Verio test strips) blood-glucose meter (OneTouch #1 ea 05/25/22 Unknown History Verio Flex Meter) cyclobenzaprine 10 mg tablet 10 mg PO DAILY PRN muscle spasm 05/25/22 Unknown History lancets 33 gauge (OneTouch Delica #100 ea 05/25/22 Unknown History Plus Lancet) metformin 500 mg tablet,extended 1,000 mg PO 05/25/22 Unknown History release 24 hr trazodone 150 mg tablet 150 mg PO BEDTIME PRN insomnia 05/25/22 Unknown History doxepin 10 mg capsule 10 mg PO BEDTIME insomnia 01/09/24 Unknown History insulin degludec 100 unit/mL (3 26 unit subcut DAILY 01/09/24 Unknown History mL) subcutaneous pen (Tresiba FlexTouch U-100 insulin) Exam Height,Weight and Vital Signs: Height 5 ft 7 in Weight 101.151 kg Documented by User: Steve Zendejas MD 12/24/24 09:41 [facility] Past Medical History Medical History (Updated 12/23/24 @ 13:00 by Mary Stevenson NP) Diabetes Asthma Bronchospasm History of dysphagia GERD (gastroesophageal reflux disease) History of Holland's esophagus COPD (chronic obstructive pulmonary disease) Allergic rhinitis Cough Family History Family History Sister Leukemia Family history of problems with anesthesia: No Surgical History Surgical History Hx of abdominal surgery Hx of colonoscopy History of esophagogastroduodenoscopy (EGD) History of Problems with Anesthesia: No Social History Social History Household Members: None Alcohol intake: never Patient Tobacco Use Status: Former Tobacco user Have you been hit, kicked, punched, or otherwise hurt by someone within the past year? If so, by whom?: No Advance Directives: No Advance Directives Information Provided: Yes Current occupational status: unemployed Meds Allergies Allergy/AdvReac Type Severity Reaction Status Date / Time No Known Allergies Allergy Verified 07/15/24 11:20 [No Known Allergies*] Home Medications ?Medication ?Instructions ?Recorded ?Confirmed ?Last Taken ?Type bupropion HCl 100 mg tablet,12 hr 100 mg PO DAILY 11/23/20 09/27/21 Unknown History sustained-release gabapentin 300 mg capsule 300 mg PO BID 11/23/20 09/27/21 Unknown History lisinopril 2.5 mg tablet 2.5 mg PO DAILY 11/23/20 09/27/21 Unknown History oxcarbazepine 150 mg tablet 150 mg PO BID 11/23/20 09/27/21 Unknown History (Trileptal) risperidone 0.5 mg tablet 0.5 mg PO BID 11/23/20 09/27/21 Unknown History albuterol sulfate 2.5 mg/3 mL mg inhalation QID PRN 10/26/21 Unknown History (0.083 %) solution for nebulization fluticasone 250 mcg-salmeterol 50 1 ea PO 10/26/21 Unknown History mcg/dose blistr powdr for inhalation (Advair Diskus) losartan 25 mg tablet 12.5 mg PO QAM 10/26/21 Unknown History alcohol swabs (Alcohol Prep Pads) pad topical TID diabetes mellitus 05/25/22 Unknown History atorvastatin 20 mg tablet 20 mg PO BEDTIME 05/25/22 Unknown History blood sugar diagnostic (OneTouch #10 ea 05/25/22 Unknown History Verio test strips) blood-glucose meter (Parametric DiningTouch #1 ea 05/25/22 Unknown History Verio Flex Meter) cyclobenzaprine 10 mg tablet 10 mg PO DAILY PRN muscle spasm 05/25/22 Unknown History lancets 33 gauge (OneTouch Delica #100 ea 05/25/22 Unknown History Plus Lancet) metformin 500 mg tablet,extended 1,000 mg PO 05/25/22 Unknown History release 24 hr trazodone 150 mg tablet 150 mg PO BEDTIME PRN insomnia 05/25/22 Unknown History doxepin 10 mg capsule 10 mg PO BEDTIME insomnia 01/09/24 Unknown History insulin degludec 100 unit/mL (3 26 unit subcut DAILY 01/09/24 Unknown History mL) subcutaneous pen (Tresiba FlexTouch U-100 insulin) Exam Airway Mallampati Class: II TM Dist: <=3cm Neck ROM: Full Loose/Missing/Broken Teeth: No Heart: ok Lungs: ok Assessment and Plan Assessment Anesthesia Assessment: Anesthesia Plan Discussed and Chart Reviewed Final Anesthetic Review Family History of Problems with Anesthesia: No History of Problems with Anesthesia: No NPO: Yes ASA Class: III Final Preanesthetic Review: No Changes in Pt Med Stat, Meds/Allgs Chart Reviewed, Consent Obtained/Reviewed and Anes Risks/Benef Reviewed Patient Risk: Intermediate Procedure Risk: Low Anesthetic Plan Anesthetic Plan: MAC: and Agree w/ Assess. and Plan Disposition: Standard PACU
[2024-12-24 09:09] VITALS: BP 126/77; PULSE 77; RESP 20; TEMP 36.4; O2SAT 96; BMI 35.3
[2024-12-24 09:09] LABS: Glucose, Whole Blood 136 mg/dL (60-115)
[2024-12-24] MEDS: Lactated Ringers 1,000 ML 100 ML IVCONT (09:21)
--- NOTE | 2024-12-24 09:25 | MHC.SHP ---
Pre-Procedural Eval Section A - 24 Hr Update-Section A only Date of Service: 12/24/24 Section B - Complete if H&P > 30 days Chief Complaint: screning Relevant Family History (Specify if Yes): No Relevant Social History: None Present Medications: see Short Stay Collaborative assessment Medical History: Significant History ( Diabetes Asthma Bronchospasm History of dysphagia GERD (gastroesophageal reflux disease) History of Holland's esophagus COPD (chronic obstructive pulmonary disease) Allergic rhinitis Cough) History of Previous Operations: Relevant previous surgery/procedure and date(s) (Hx of abdominal surgery Hx of colonoscopy History of esophagogastroduodenoscopy (EGD)) Allergies: Allergies Allergy/AdvReac Type Severity Reaction Status Date / Time No Known Allergies Allergy Verified 07/15/24 11:20 [No Known Allergies*] Review of Systems Sugical H&P ROS: Negative: Constitution, Cardiovascular, Respiratory, Neurological, Psychiatric, Hem-Onc, Allergic/Immunologic, Gastrointestinal, Genitourinary, Musculoskeletal, Integumentary, Endocrine and Eyes/Ears/Nose/Throat Exam Surgical H&P Exam: Normal: HEENT, Normal: Heart, Normal: Lungs, Normal: Extremities, Normal: Abdomen, Normal: Skin and Normal: Neurological Plan Diagnosis/Plan: Unchanged I have reviewed the history and physical and performed a pertinent physical examination on my patient. No changes have occurred unless specified. Time Spent With Patient Time: Total time managing care of this patient today ____ minutes.
[2024-12-24 10:00] VITALS: BP 123/71; PULSE 64; RESP 20; TEMP 36.6; O2SAT 95
--- NOTE | 2024-12-24 10:01 | HO.OPN-COLON ---
Colonoscopy Operative Note Operative Note Date of Service: 12/24/24 Narrative: Operative Information Procedure Description: Colonoscopy Indication: screening Anesthesia: MAC COLONOSCOPY Instrument: Olympus variable stiffness pediatric scope 190L Colonoscopy Monitoring: Vital signs and clinical assessment, continuous EKG monitoring, Pulse oximetry, Carbon Dioxide monitoring and blood pressure monitoring were done throughout the procedure. Colon withdrawal time was 18 minutes. Procedure: The patient was placed in the left lateral decubitis position and pre-procedure medications were administered. After a digital rectal examination of the ano-rectum, the video colonoscope was inserted into the rectum and advanced through the colon to the cecum/TI. The colonoscope was slowly withdrawn in a retrograde panoramic fashion and the colon mucosa was carefully examined including a retroflexed view of the rectum. Findings and interventions are described below. Procedure Difficulty: easy Findings: Terminal Ileum-normal Cecum:normal Ascending Colon: 10 mm sessile polyp removed with cold snare, 4-5 mm sessile polyp removed with cold forceps Transverse Colon -normal Descending Colon: 10 mm sessile polyp lifted with methylene blue and removed with cold snare with one clip applied for hemostasis Sigmoid Colon: x 1 sessile polyp 10 mm removed with cold snare Rectum: Retroflexion with small internal hemorrhoids seen, grade I Anorectum - normal Intervention: cold snare, eleview and lift with EMR, cold forceps Colon preparation: [place] Bowel Preparation Scale Right colon; 2 Transverse colon: 2 Left colon; 1-2 (0 = Unprepared colon segment with mucosa not seen due to solid stool that cannot be cleared. 1 = Portion of mucosa of the colon segment seen, but other areas of the colon segment not well seen due to staining, residual stool and/or opaque liquid. 2 = Minor amount of residual staining, small fragments of stool and/or opaque liquid, but mucosa of colon segment seen well. 3 = Entire mucosa of colon segment seen well with no residual staining, small fragments of stool or opaque liquid) Impression and Post Procedure Diagnosis: colon polyps x4 internal hemorrhoids Plan: High fiber diet leaflet Avoid straining at stool, epsom salts and sitz bath, anusol supps or cream Repeat Colonoscopy in 8-12 months or earlier if clinically indicated Above findings were reviewed with the patient and relevant handouts were provided if indicated.
[2024-12-24 10:15] VITALS: BP 126/71; PULSE 60; RESP 20; TEMP 36.4; O2SAT 97
== END 2024-12-24 11:00 | disposition home or self-care (01) ==
PROVIDERS: PCP Family Medicine; Visit Provider Internal Medicine Gastroenterology
PROC: 0DJD8ZZ Inspection of Lower Intestinal Tract, Via Natural or Artificial Opening Endoscopic (ICD-10-PCS; CPT 45378; principal; 2024-12-24 10:40)
DX: Z12.11 Encounter for screening for malignant neoplasm of colon (principal); D12.2 Benign neoplasm of ascending colon; D12.3 Benign neoplasm of transverse colon; D12.5 Benign neoplasm of sigmoid colon; K64.0 First degree hemorrhoids; K21.00 Gastro-esophageal reflux disease with esophagitis, without bleeding; Z87.19 Personal history of other diseases of the digestive system; E11.9 Type 2 diabetes mellitus without complications; J44.9 Chronic obstructive pulmonary disease, unspecified; J98.01 Acute bronchospasm; Z79.51 Long term (current) use of inhaled steroids; Z79.4 Long term (current) use of insulin; Z79.84 Long term (current) use of oral hypoglycemic drugs; Z79.85 Long-term (current) use of injectable non-insulin antidiabetic drugs; Z79.899 Other long term (current) drug therapy; Z87.891 Personal history of nicotine dependence; Z98.890 Other specified postprocedural states; Z56.0 Unemployment, unspecified
CPT/HCPCS: 45385; 45380; 45381; 82947; 88305; J2003; J2704; Q9968

== ENCOUNTER → 2024-12-24 08:53 | Outpatient (BNV) | payer MEDICAID, SELFPAY | PROVIDERS: PCP Family Medicine; Visit Provider Internal Medicine Gastroenterology | DX: Z12.11 Encounter for screening for malignant neoplasm of colon (principal); D12.2 Benign neoplasm of ascending colon; D12.4 Benign neoplasm of descending colon; D12.5 Benign neoplasm of sigmoid colon | CPT/HCPCS: 45380; 45381; 45385 ==

== ENCOUNTER 2025-01-08 11:25 | Outpatient (REF) | payer MEDICAID, SELFPAY ==
--- NOTE | ~2025-01-08 | XR_ITS ---
EXAMINATION: XR KNEE, RIGHT CLINICAL INFORMATION: 2 weeks of right knee pain, problems walking due to pain/limping COMPARISON: None available. TECHNIQUE: Four views of the right knee. FINDINGS: No fracture, dislocation, or suspicious bone lesion. Normal bone mineralization. Normal alignment. There is early degenerative arthritis in the medial and patellofemoral compartments. There is mild spurring of the tibial spines. No significant joint effusion. Soft tissues appear normal. XR/XR knee RT 3V IMPRESSION: 1. No acute bony abnormalities. 2. Early degenerative arthritis medial and patellofemoral compartments. 3. No evidence of joint effusion. Electronically signed by: Vincenzo Milligan MD 01/08/2025 12:22 PM EDT
--- OUTSIDE RECORDS SUMMARY | 2025-01-08 12:44 | XMS_ITS | Encounter Summary ---
Author Organization [employer] Address [address] [facility] 7t [place] [address] Care Team Providers Care Oil Well Perforator Operator Name Role Phone Samra Marsh MD Primary Care Provider [phone] Francois Rider PharmD Unavailable [phone] Yung Patel RN Unavailable [phone] Reason for Visit * Reason Onset Date Comments Prior Authorization 04/12/2024 Encounter Details Date Type Department Care Team (Late st Contact Info) Description 04/12/2024 Telephone [facility] MEDICINE [address] [place], [place] [phone] Samra Marsh MD [address] [place], [place] [phone] Prior Authorization Social History Tobacco Use Types [...] update on PA. Please contact Kimmy at [phone] documented in this encounter Plan of Treatment Upcoming Encounters Date Type Department Care Team (Late st Contact Info) Description 01/20/2025 10:15 AM EDT Office Visit [facility] MEDICINE [address] [place] [address] Samra Marsh MD [address] [place] [address] 06/16/2025 9:00 AM EDT Medication Management [facility] MEDICINE [address] [place] [address] Francois Rider PharmD [address] [place] [address] documented as of this encounter Goals Goal Patient Goal Type Associated Problems Recent Progress Patient-Stated? Author Blood Pressure < 140/90 Blood Pressure 118/72(2024 10:06 AM EDT) No Francois Rider PharmD Hemoglobin A1c < 7 Result Component 6.7( 5 9:00 AM EDT) No Francois Rider PharmD documented as of this encounter Visit Diagnoses Not on filedocumented in this encounter Additional Health Concerns Assessment Noted Time PHQ-9 Depression Total Score: 0 09/08/19 23 9:31 AM EST documented as of this encounter Care Teams Oil Well Perforator Operator Relationship Specialty Start Date End Date Samra Marsh MD [address] [place] [address] PCP - General Family Medicine 08/21/18 Francois Rider PharmD [address] [place] [address] Pharmacist Internal Medicine 12/30/22 Yung Patel RN [address] [place] [phone] Back WedgerClass C Driver 11/20/23 Brandon Jones Jr Back WedgerClass C Driver 05/10/24 [employer] 06/24/22 documented as of this encounter
--- OUTSIDE RECORDS SUMMARY | 2025-01-08 12:44 | XMS_ITS | Encounter Summary ---
Author Organization [employer] Address [address] [facility] [address] 7[address] [place] [address] Care Team Providers Care Strategic Client Executive Name Role Phone Samra Marsh MD Primary Care Provider [phone] Francois Rider PharmD Unavailable [phone] Yung Patel RN Unavailable [phone] Encounter Details Date Type Department Care Team (Late st Contact Info) Description 12/18/2023 Orders Only [facility] MEDICINE [address] [place] [address] Provider, MD Anam Social History Tobacco Use [...] Description 01/20/2025 10:15 AM EDT Office Visit [facility] MEDICINE [address] [place] [address] Samra Marsh MD [address] [place] [address] 06/16/2025 9:00 AM EDT Medication Management [facility] MEDICINE [address] [place] [address] Francois Rider, TomásD [address] [place] [address] documented as of this encounter Goals Goal Patient Goal Type Associated Problems Recent Progress Patient-Stated? Author Blood Pressure < 140/90 Blood Pressure 118/72(2024 10:06 AM EDT) No Francois Rider, PharmNick Hemoglobin A1c < 7 Result Component 6.7( 9:00 AM EDT) No Francois Rider PharmD [...] documented as of this encounter Care Teams Strategic Client Executive Relationship Specialty Start Date End Date Samra Marsh MD [address] [place] [address] PCP - General Family Medicine 08/21/18 Francois Rider, PharmD [address] [place] [address] Pharmacist Internal Medicine 12/30/22 Yung Patel, MERVAT [address] [place] [phone] Manager BalanceSpreader 11/20/23 Sharon Perez Community Health Worker Case Management 01/18/24 01/18/24 Brandon Jones Jr Manager BalanceSpreader 05/10/24 [employer] 06/24/22 documented as of this encounter
--- OUTSIDE RECORDS SUMMARY | 2025-01-08 12:44 | XMS_ITS | Encounter Summary ---
Author Organization [employer] Address [address] [facility] 7t [place] [address] Care Team Providers Care Cold Roll Operator Name Role Phone Samra Marsh MD Primary Care Provider Francois Rider PharmD Unavailable [phone] Yung Patel RN Unavailable [phone] Encounter Details Date Type Department Care Team (Latest Contact Info) Description 11/26/2021 Abstract [facility] CONVERSIONS Dental, Provider, DDS Social History Tobacco [...] Description 01/20/2025 10:15 AM EDT Office Visit [facility] MEDICINE [address] [place] [address] [phone] Samra Marsh MD [address] [place] [address] [phone] 06/16/2025 9:00 AM EDT Medication Management [facility] MEDICINE [address] [place] [address] [phone] Francois Rider, PharmD [address] [place], [place] [phone] documented as of this encounter Visit Diagnoses Not on filedocumented in this encounter Care Teams Cold Roll Operator Relationship Specialty Start Date End Date Samra Marsh MD [address] [place] [address] PCP - General Family Medicine 08/21/18 Francois Rider, Jared [address] [place], [place] [phone] Pharmacist Internal Medicine 12/30/22 Yung Patel, MERVAT [address] [place] [address] Spring Floor Service WorkerColoring Room Worker 11/20/23 Sharon Perez Community Health Worker Case Management 01/18/24 01/18/24 Brandon Jones Spring Floor Service WorkerColoring Room Worker 05/10/24 [employer] 06/24/22 documented as of this encounter
--- OUTSIDE RECORDS SUMMARY | 2025-01-08 12:44 | XMS_ITS | Encounter Summary ---
Author Organization [employer] Address [address] [facility] 7t [place] [address] Care Team Providers Care Resident Care Manager Name Role Phone Samra Marsh MD Primary Care Provider [phone] Francois Rider PharmD Unavailable [phone] Yung Patel RN Unavailable [phone] Reason for Visit * Reason Onset Date Comments Appointment Request 10/22/2024 Encounter Details Date Type Department Care Team (Late st Contact Info) Description 10/22/2024 Telephone [facility] MEDICINE [address] [place] [address] Samra Marsh MD [address] [place], [place] [phone] Appointment Request Social History Tobacco Use Types [...] 10/22/2024 1:49 PM EST Tc from Brandon 's director of critical care requesting a call back to schedule physical appt. No availability, slots blocked. [phone] documented in this encounter Plan of Treatment Upcoming Encounters Date Type Department Care Team (Late st Contact Info) Description 01/20/2025 10:15 AM EDT Office Visit [facility] MEDICINE [address] [place] [address] Samra Marsh MD [address] [place] [address] 06/16/2025 9:00 AM EDT Medication Management [facility] MEDICINE [address] [place] [address] Francois Rider, PharmD [address] [place] [phone] documented as of this encounter Goals Goal [...] documented as of this encounter Care Teams Resident Care Manager Relationship Specialty Start Date End Date Samra Marsh MD [address] [place] [address] PCP - General Family Medicine 08/21/18 Francois Rider PharmD [address] [place] [address] Pharmacist Internal Medicine 12/30/22 Yung Patel, MERVAT [address] [place] [address] Pest Control Service TechnicianBrick Handler 11/20/23 Brandon Jones Jr Pest Control Service TechnicianBrick Handler 05/10/24 [employer] 06/24/22 documented as of this encounter
--- OUTSIDE RECORDS SUMMARY | 2025-01-08 12:44 | XMS_ITS | Clinical Summary ---
Author Organization [employer] Address [address] [place] [address] Care Team Providers Care Freelance Court Reporter Name Role Phone Samra Marsh MD Primary Care Provider [phone] Francois Rider PharmD Unavailable [phone] Yung Patel RN Unavailable [phone] Allergies Active Allergy Reactions Criticality Noted Date Comments Shellfish-Derived Products High 1 Medications ProAir HFA 108 (90 Base) MCG/ACT inhaler Inhale 2 puffs every 4 (four) hours if needed for shortness of breath or wheezing. 022 Active buPROPion SR (Wellbutrin SR) 100 MG [...] tablet by mouth in the morning and 1 tablet in the evening. Active sucralfate (Carafate) 1 g tablet Take 1 tablet by mouth every 12 (twelve) hours. Active doxepin (SINEquan) 10 MG capsule 022 Active famotidine (Pepcid) 40 MG tablet TAKE 1 TABLET BY MOUTH AT BEDTIME 90 tablet 3 023 Active metFORMIN XR (Glucophage-XR) 500 MG 24 [...] :Uncontrolled type 2 diabetes mellitus with hyperglycemia ([facility]/HCC) TAKE 1 TABLET BY MOUTH EVERY MORNING 90 tablet 3 Active glucose blood (FREESTYLE LITE) test stripIndications: Type 2 diabetes mellitus with hyperglycemia, with long-term current use of insulin ([facility]) Use to test blood sugar 3 times daily 100 each 024 2024 Active Lancets miscIndications:T ype 2 diabetes mellitus with hyperglycemia, with long-term current use of insulin ([facility]) Use to test blood sugar 3 times daily 100 each Active Blood Glucose Monitoring Suppl (FreeStyle [place] Lite) w/Device kitIndications:Ty pe 2 diabetes mellitus with hyperglycemia, with long-term current use of insulin ([facility]) Use to test blood sugar 3 times daily 1 kit Active pen needle 31G x 5 mm miscIndications:T ype 2 diabetes mellitus with hyperglycemia, with long-term current use of insulin ([facility]) Use to inject insulin once daily 100 each 3 024 2024 Active insulin degludec (Tresiba FlexTouch) 100 UNIT/ML injectionIndicati ons:Type 2 diabetes mellitus with hyperglycemia, with long-term current use of insulin ([facility]) Administer 26 units once a day. 15 mL Active UltiCare Alcohol Swabs 70 % padsIndications:T ype 2 diabetes mellitus with hyperglycemia ([facility]/HCC) Use topically four times daily to check blood glucose and with insulin. 100 each Active Trulicity 3 MG/0.5ML solution auto-injectorIndi cations:Type 2 diabetes mellitus with hyperglycemia, with long-term current use of insulin ([facility]) INJECT ONE PEN (= 3MG) SUBCUTANEOUSLY ONCE A WEEK DIRECTED 2 mL 5 025 Active losartan (Cozaar) 25 MG tabletIndications :Primary hypertension TAKE 1 TABLET BY MOUTH EVERY MORNING 90 tablet 1 Active Fluticasone-Salme terol (Advair Diskus) 250-50 MCG/ACT aerosol powder INHALE 1 PUFF BY MOUTH TWICE DAILY IN THE MORNING AND IN THE EVENING APPROXIMATELY 12 HOURS APART. RINSE MOUTH AFTER USING. 1 each 11 Active gabapentin (Neurontin) 300 MG capsuleIndication s:Diabetic polyneuropathy associated with type 2 diabetes mellitus (CMS/HCC) TAKE 1 CAPSULE BY MOUTH TWICE DAILY IN THE MORNING AND AT BEDTIME 60 capsule 3 025 Active fluticasone (Flonase) 50 MCG/ACT nasal spray USE 1 SPRAY IN EACH NOSTRIL ONCE DAILY 48 g Active atorvastatin (Lipitor) 40 MG tabletIndications :Type 2 diabetes mellitus with hyperglycemia, with long-term current use of insulin (CMS/HCC) Take 1 tablet (40 mg) by mouth Once per day. 90 tablet 3 025 Active hydroCHLOROthiazi de 12.5 MG tablet Take 1 tablet (12.5 mg) by mouth Once per day. 30 tablet 025 Active tamsulosin (Flomax) 0.4 MG 24 hr capsule Take 1 capsule (0.4 mg) by mouth at bedtime. 30 capsule 3 025 Active naproxen (Naprosyn) 500 MG tabletIndications :Right knee pain, unspecified chronicity Take 1 tablet (500 mg) by mouth 2 times daily for 10 days. 20 tablet 025 2024 Active tamsulosin (Flomax) 0.4 MG 24 hr capsule Take 1 capsule (0.4 mg) by mouth Once per day. 30 capsule 1 025 2024 Discontinued Active Problems Problem Noted Date Diagnosed Date Lower urinary tract symptoms (LUTS) 12/12/2024 Assessment & Plan (12/12/2024 1:58 PM EDT): No evidence of UTI, will send urine culture and follow-up as needed abnormal results. Start Flomax nightly that will facilitate expulsion of kidney stone or potential BPH symptoms. Encourage increase water intake, tight control of diabetes. Refer to urology for further evaluation especially given concomitant hematuria Discussed with patient to have his mother or VNA call back in 2 weeks if they have not received referral to Case was discussed with Kimmy, he has VNA and she agreed to follow-up with referral start Flomax tonight. Other microscopic hematuria 12/12/2024 Assessment & Plan (12/12/2024 9:47 AM EDT): It could be related to a kidney stone on the right side, etc. the patient does not report any type of pain. Referred to urology for further evaluation Dental plaque 11/24/2023 Dental caries 11/24/2023 Diabetic [...] Assessment & Plan (10/02/2024 6:36 AM EST): GI, [facility], seen on 05/25/222017 EGD showed Holland's esophagus 2021 EGD no [...] 55; LDL 85 Diabetic eye exam: 06/20/22, [facility], no diabetic retinopahy Foot exam: 09/30/24 Foot [...] 55; LDL 85 Diabetic eye exam: 06/20/22, [facility], no diabetic retinopahy Foot exam: 01/24/23 Severe [...] LDL 85 ?? Diabetic eye exam: 06/20/22, [facility], no diabetic retinopahy ?? Foot exam: 01/24/23 [...] LDL 85 ?? Diabetic eye exam: 06/20/22, [facility], no diabetic retinopahy ?? Foot exam: 01/24/23 [...] LDL 85 ?? Diabetic eye exam: 06/20/22, [facility], no diabetic retinopahy ?? Foot exam: 01/24/23 [...] LDL 85 ?? Diabetic eye exam: 06/20/22, [facility], no [...] LDL 85 ?? Diabetic eye exam: 06/20/22, [facility], no [...] LDL 147 ?? Diabetic eye exam: 06/20/22, [facility], no diabetic retinopahy ?? Foot exam: 10/14/20. Pt declines foot exam today Sacroiliac joint dysfunction of left side 2016 Moderate persistent asthma 07/07/2015 Assessment & Plan (10/02/2024 6:34 AM EST): Technical Service Rep: Dr. Acosta, last seen in Jun 2024 [...] Assessment & Plan (11/24/2023 9:34 AM EDT): Technical Service Rep: Dr. Acosta, last seen on 09/27/21 PFT [...] & Plan (04/27/2023 11:46 AM EDT): ?? Technical Service Rep: Dr. Acosta, last seen on 09/27/21 ?? [...] & Plan (01/24/2023 10:15 AM EDT): ?? Technical Service Rep: Dr. Acosta, last seen on 09/27/21 ?? [...] & Plan (10/19/2022 12:55 PM EST): ?? Technical Service Rep: Dr. Acosta, last seen on 09/27/21 ?? [...] & Plan (09/15/2022 4:22 AM EST): ?? Technical Service Rep: Dr. Acosta, last seen on 09/27/21 ?? [...] Plan (09/08/2022 9:42 AM EST): Seen by Technical Service Rep on 09/27/21, persistent cough. -PFT 11/21/18: mild restrictive pulmonary disorder without obstructive disorder -CXR shows atelectasis -Abnormal lung exam including baseline crackles -Continue Advair and Singulair as maintenance -Continue albuterol HFA outside and neb at home prn as rescue -Pt reports nebulizer treatment is more effective than inhaler. Schedule for COVID vaccine Re-refer to Dr. Acosta, public interviewer Assessment & Plan (07/28/2022 3:55 PM EST): ?? Technical Service Rep: Dr. Acosta, last seen on 09/27/21 ?? [...] (11/24/2023 9:24 AM EDT): - Following with [facility] - Continue Dexilant, famotidine, and sucralfate - Avoid NSAIDs Assessment & Plan (09/15/2022 4:25 AM EST): - Following with [facility] - Continue Dexilant, famotidine, and sucralfate [...] & Plan (10/02/2024 6:38 AM EST): - [facility] providers: [facility] / [facility]. Psychiatrist: Dr. Maier - Current medications: oxcarbazepine; risperidone; bupropion; trazodone - Previous medications: Quetiapine, zolpidem, Valproic acid - pt has visiting nurse. Referred to care management in the past. The program was ended. Assessment & Plan (04/27/2023 11:48 AM EDT): - [facility] providers: [facility] / [facility]. Psychiatrist: Dr. Maier - Current medications: oxcarbazepine; risperidone; bupropion; trazodone - Previous medications: Quetiapine, zolpidem, Valproic acid - pt has visiting nurse. Referred to care management in the past. The program was ended. Assessment & Plan (01/24/2023 10:17 AM EDT): - [facility] providers: [facility] / [facility]. Psychiatrist: Dr. Maier - Current medications: oxcarbazepine; risperidone; bupropion; trazodone - Previous medications: Quetiapine, zolpidem, Valproic acid - pt has visiting nurse. Referred to care management in the past. The program was ended. Assessment & Plan (10/19/2022 12:59 PM EST): - [facility] providers: [facility] / [facility]. Psychiatrist: Dr. Maier - Current medications: oxcarbazepine; risperidone; bupropion; trazodone - Previous medications: Quetiapine, zolpidem, Valproic acid - pt will benefit from having P D DRIVER and/or visiting nurse service - pt will benefit from having long-term care management Assessment & Plan (09/08/2022 9:44 AM EST): [facility] providers: [facility] / [facility]. Psychiatrist: Dr. Maier Current medications?: Seroquel XR 100 mg qhs and 25mg prn, Wellbutrin 150 mg qam -Discontinued zolpidem and Valproic acid -pt will benefit form having P D DRIVER to organize his medical appt's Resolved Problems Problem Noted Date Diagnosed Date Resolved Date Asthma 02/23/2012 09/08/2022 Encounters Date Type Department Care Team Description 01/08/2025 10:00 AM EDT Office Visit [facility] MEDICINE [address] [place] [phone] Swapnil Martinez MD Right knee pain, unspecified chronicity (Primary Dx) 01/08/2025 Travel 12/26/2024 Abstract [facility] [address] [place] [address] [phone] Samra Marsh MD 12/24/2024 Orders Only GENERIC EXTERNAL DATA DEPARTMENT Provider, Generic External Data 12/19/2024 Outside Procedure [facility] OPTOMET[facility] [address] [place] [phone] Dora Wolfe, OD Presbyopia (Primary Dx) 12/16/2024 11:00 AM EDT Office Visit [facility] OPTOM[facility] [address] [place] [address] [phone] Dora Wolfe, OD Regular astigmatism of left eye (Primary Dx) 12/12/2024 9:40 AM EDT Office Visit [facility] WALK[facility]IN [facility]ENTER [address] [place] [address] [phone] Aliyah Espino MD Lower urinary tract symptoms (LUTS) (Primary Dx); Other microscopic hematuria; UTI symptoms 12/05/2024 Telephone [facility] [address] [place] [address] [phone] Samra Marsh MD Nurse Triage 12/02/2024 Travel 11/27/2024 Refill [facility] [address] [place] [address] [phone] Pj Simmons MD 11/27/2024 Refill [facility] [address] [place] [address] [phone] Samra Marsh MD Diabetic polyneuropathy associated with type 2 diabetes mellitus (CMS/HCC); Primary hypertension 11/25/2024 Refill [facility] [address] [place] [phone] Francois Rider, Jared Primary hypertension 11/01/2024 Population Health Risk Score [facility] () Department [address] [phone] Provider, Population Health Generic 10/28/2024 10:30 AM EDT Office Visit [facility] OPTOMETRY [address] [place] [address] Aiden, Dora, OD 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 associated with type 2 diabetes mellitus ([facility]) (Primary Dx); Age-related nuclear cataract of left eye; Peripapillary atrophy of right eye; Corectopia; Aphakia of right eye; Presbyopia 10/28/2024 Travel 10/24/2024 Orders Only [facility] [address] [place] [address] Samra Marsh MD Type 2 diabetes mellitus with hyperglycemia, with long-term current use of insulin ([facility]) (Primary Dx); Primary hypertension 10/23/2024 Telephone [facility] [address] [place] [phone] Samra Marsh MD 10/23/2024 Refill [facility] [address] [place] [address] Francois Rider PharmD Type 2 diabetes mellitus with hyperglycemia, with long-term current use of insulin ([facility]) 10/22/2024 Telephone [facility] [address] [place] [address] Samra Marsh MD Appointment Request from Last 3 Months Immunizations Immunization Administration Dates Next Due Hep A, Adult [...] Sign Reading Time Taken Comments Blood Pressure 118/72 01/08/2025 10:06 AM EDT Pulse 80 01/08/2025 10:06 AM EDT Temperature 37.2 ??C (98.9 ??F) 01/08/2025 10:06 AM E DT Respiratory Rate 10 01/08/2025 10:06 AM EDT Oxygen Saturation 94% 01/08/2025 10:06 AM EDT Inhaled Oxygen Concentration - - Weight 100 kg (221 lb 3.2 oz) 01/08/2025 10:06 A M EDT Height 172.7 cm (5' 8 ) 01/08/2025 10:06 AM EDT Body Mass Index 33.63 01/08/2025 10:06 AM EDT Plan of Treatment Upcoming Encounters Date Type Department Care Team (Late st Contact Info) Description 01/20/2025 10:15 AM EDT Office Visit [facility] MEDICINE [address] [place] [address] [phone] Samra Marsh MD [address] [place] [address] 06/16/2025 9:00 AM EDT Medication Management [facility] [address] [place] [address] [phone] Francois Rider, PharmD [address] [place] [address] Health Maintenance Due Date Last Done Comments CT Colonography 1965 FIT DNA/Cologuard 1965 FIT 1965 FOBT 1965 Sigmoidoscopy 1965 Disability Screening 1965 Dental Oral Exam 05/26/2024 11/24/2023, 03/2022, 08/31/2020, Additional history exists SDOH Screening 11/22/2024 11/23/2023 Dental X-Ray: Bitewings 11/24/2024 11/24/19 24, 11/26/2021, 08/31/2020, Additional history exists Dental X-Ray: Full Mouth 11/27/2024 11/26/2021, 03/21 Dental Prophylaxis 01/03/2025 07/05/2024, 0 11/24/2023, 11/26/2021, Additional history exists Diabetes: Hemoglobin A1C 06/03/2025 025, 08/23/2024, 05/10/2024, Additional history exists Alcohol/Substance Use Screening 09/30/2025 09/30/2024 Depression Screening 09/30/2025 09/30/2024, 09/30/19 25 Diabetes: Foot Exam 09/30/2025 09/30/2024, 09/30/2024, 01/24/2023, Additional history exists Diabetes: Urine Protein Screening 09/30/2025 09/30/2024, 04/27/2023, 04/27/2023, Additional history exists Lipid Panel 09/30/2025 09/30/2024, 09/0 02/2023, 09/08/2022, Additional history exists Eye Exam 10/28/2025 10/28/2024, 10/19, 10/28/2024, Additional history exists Tobacco Screening 01/08/2026 01/08/2025 DTaP/Tdap/Td Vaccines (3 - Td or Tdap) 02/01/2032 01/31/2022, 12/08/2011, 06/19/2007 Colonoscopy 12/24/2034 12/24/2024, 08/21, 03/25/2014 Colorectal Cancer Screening 12/24/2034 Hepatitis A Vaccines Aged Out 01/17/2013, 03/21/20 [...] patient's age to complete this topic Meningococcal B Vaccine Aged Out No l onger eligible based on patient's age to complete [...] 9:00 AM EDT) No Francois Rider PharmD Procedures Procedure Name Priority Date/Time Associated Diagnosis Comments XR KNEE 3 VIEWS RIGHT Routine 01/08/2025 11:26 AM EDT Right knee pain, unspecified chronicity HEMATOXYLIN AND EOSIN STAIN Routine 12/24/2024 9:45 AM EDT GLUCOSE, WHOLE BLOOD Routine 12/24/2024 9:06 AM EDT HM COLONOSCOPY Routine 12/24/2024 CULTURE, URINE, ROUTINE Routine 12/12/2024 9:44 AM EDT Lower urinary tract symptoms (LUTS) POCT URINALYSIS DIPSTICK Routine 12/12/2024 9:29 AM EDT UTI symptoms POCT GLYCATED HEMOGLOBIN, TOTAL Routine 12/02/2024 9:00 AM EDT Type 2 diabetes mellitus with hyperglycemia, with long-term current use of insulin ([facility]) OCT, RETINA - OU - BOTH EYES Routine 10/28/2024 10:30 AM EDT 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 associated with type 2 diabetes mellitus ([facility]) ALBUMIN, RANDOM URINE W/CREATININE Routine 09/30/2024 11:44 AM EST LIPID PANEL, STANDARD Routine 09/30/2024 11:44 AM EST PROPHYLAXIS - ADULT Routine 07/05/2024 1 :00 [...] Routine screening for STI (sexually transmitted infection) INTRAORAL - COMPLETE SERIES OF RADIOGRAPHIC IMAGES Routine 11/26/2021 12:00 AM EDT from Last 3 Months or Most Recently Relevant to Health Maintenance Results * XR Knee 3 Views Right (01/08/2025 11:26 AM EDT) Anatomical Region Laterality Modality Lower Extremities, Knee Right Radiogra [facility] 01/08/2025 11:2 6 AM EDT Narrative 01/08/2025 12:25 PM EDT ?[facility] ?[address] ?[place] [address] ?XRay Report ? Signed ? Patient: Class,Miguel ?MR#: [id number] ? : 1965 ?Acct:[id number] ? Age/Sex: 59 / M ?ADM Date: 05/21/25 ? Loc: HO.HHCX ? Attending Dr: Swapnil Martinez MD ? Ordering Physician: Swapnil Martinez MD ?? Date of Service: 01/08/25 ?? Procedure(s): XR knee RT 3V ?? Accession Number(s): [id number] ? cc: Swapnil Martinez MD ? EXAMINATION: ?? XR KNEE, RIGHT ? CLINICAL INFORMATION: ?? 2 weeks of right knee pain, problems walking due to pain/limping ? COMPARISON: ?? None available. ? TECHNIQUE: ?? Four views of the right knee. ? FINDINGS: ?? No fracture, dislocation, or suspicious bone lesion. Normal bone ?? mineralization. ?? Normal alignment. ?? There is early degenerative arthritis in the medial and patellofemoral ?? compartments. ?? There is mild spurring of the tibial spines. ? No significant joint effusion. ? Soft tissues appear normal. ? XR/XR knee RT 3V ?? IMPRESSION: ?? 1. No acute bony abnormalities. ?? 2. Early degenerative arthritis medial and patellofemoral compartments. ?? 3. No evidence of joint effusion. ? Electronically signed by: ??Vincenzo Milligan MD ??01/08/2025 12:22 PM EDT RP ? Dictated By: ?Vincenzo Milligan MD ? Signed By: ?<Electronically signed by Vincenzo Milligan MD in OV> ?01/08/25 1222 ? DD/ 1126 ? TD/TT: 01/08/25 1140 ? Pig Sticker: ? Procedure Note Yordy, Image - 01/08/2025 [facility] [address] [place] [address] XRay Report Signed Patient: Clint Goldstein#: [id number] : 1965Acct:[id number] Age/Sex: 59 / MADM Date: 01/08/25 Loc: HO.HHCX Attending Dr: Swapnil Martinez MD Ordering Physician: Swapnil Martinez MD Date of Service: 01/08/25 Procedure(s): XR knee RT 3V Accession Number(s): [id number] cc: Swapnil Martinez MD EXAMINATION: XR KNEE, RIGHT CLINICAL INFORMATION: 2 weeks of right knee pain, problems walking due to pain/limping COMPARISON: None available. TECHNIQUE: Four views of the right knee. FINDINGS: No fracture, dislocation, or suspicious bone lesion. Normal bone mineralization. Normal alignment. There is early degenerative arthritis in the medial and patellofemoral compartments. There is mild spurring of the tibial spines. No significant joint effusion. Soft tissues appear normal. XR/XR knee RT 3V IMPRESSION: 1. No acute bony abnormalities. 2. Early degenerative arthritis medial and patellofemoral compartments. 3. No evidence of joint effusion. Electronically signed by: Vincenzo Milligan MD 01/08/2025 12:22 PM EDT Dictated By: Vincenzo Milligan MD Signed By: <Electronically signed by Vincenzo Milligan MD in OV> 01/08/25 1222 DD/ 1126 TD/TT: 01/08/25 1140 Pig Sticker: Swapnil Martinez MD IMG XR PROCEDURES Final Result * Hematoxylin and Eosin Stain (12/24/2024 9:45 AM EDT) 12/24/2024 9:45 AM EDT 12/24/2024 11:04 AM EDT [facility] - 12/25/2024 2:38 PM EDT ----- ------- Name: Class,Miguel ? Age/Sex: 59/M ? : 1965 Unit#: [id number] ?? Attend Dr: Niya Jaimes MD ?Re12/24/24 ?Status: DEP SDC ? Location: HO.SSS ?Disch: ? ----- ------- SPEC : [id number] ? RECD: 12/24/24-1104 ? STATUS: ??SOUT ? REQ NUM: [id number] ? NEETU: 12/24/2445 ? SUBM DR: Niya Jaimes MD ? ENTERED: ??12/24/24-1120 ?SP TYPE: Surgical ? OTHR DR: Samra Marsh MD ? ORDERED: ??HE Stain/9, Gross Micro L4/3 ? Diagnosis ?? A. ??Colon, ascending, polyps: ??Tubular adenomas (multiple pieces); negative for high- ?? grade dysplasia and carcinoma. ? B. ??Colon, descending, polyp: ??Tubular adenoma; negative for high-grade dysplasia and ?? carcinoma. ? C. ??Colon, sigmoid, polyps: ??Tubular adenomas (multiple pieces); negative for high-grade ?? dysplasia and carcinoma. ?Clinical History Pre-Op Dx: ??Screening Post-Op Dx: Colon polyps, internal hemorrhoids ?Microscopic Description Microscopic sections reviewed. ? Material Received ?? A. Ascending colon polyps ?? B. Descending colon polyp ?? C. Sigmoid colon polyps ? Gross Description Received in three parts Part A: ??Received in formalin labeled ?ascending colon polyps are several freeman-pink and pink-red irregular and papular tissue fragments ranging from 0.3-0.6 cm and aggregating 2.0 x 1.2 x 0.4 cm, submitted in toto in a cassette labeled A. Part B: ??Received in formalin labeled ?descending colon polyp? are 2 freeman-pink papular tissue fragments measuring 0.3 and 0.4 cm, submitted in toto in a cassette labeled B. Part C: ??Received in formalin labeled ?sigmoid polyp are a few minute to 0.5 cm freeman-pink irregular and papular tissue fragments, submitted in toto in cassette C1. ??Also received is a 1.5 x 1.5 x 0.4 cm aggregate of freeman, green-brown partially digested food, debris and minute shards of freeman tissue, submitted in toto in cassette C2. CEDS ? CONTINUED ON NEXT PAGE ----- ------- Name: Class,Miguel ? Age/Sex: 59/M ? : 1965 Unit#: [id number] ?? Attend Dr: Niya Jaimes MD ?Re12/24/24 ?Status: DEP SDC ? Location: HO.SSS ?Disch: ? ----- ------- SPEC : [id number] ? RECD: 12/24/24 ? STATUS: ??SOUT ? REQ NUM: [id number] ? NEETU: 12/24/24 ? SUBM DR: Niya Jaimes MD ? ENTERED: ??12/24/24 ?SP TYPE: Surgical ? OTHR DR: Samra Marsh MD ? ORDERED: ??HE Stain/9, Gross Micro L4/3 ? Copies To: ?? Niya Jaimes MD ?? [facility] ?? [address] ?? [place] [address] ?? [phone] ?? Samra Marsh MD ?? [facility] ?? [address] [facility] ?? [place] [address] ?? [phone] ----- ------- Signed (signature on file) Do Shin 12/25/24 1438 ? ----- ------- ? END OF REPORT ? us Generic External Data Provider LAB BLOOD ORDERAB LES Final Result Performing Organization Address [facility] Co de Phone Number [facility] [address] [place] [address] [phone] * (ABNORMAL) Glucose, Whole Blood (12/24/2024 9:06 AM EDT) Glucose, Whole Blood 136(H) 60 - 115 mg/dL [facility] Comment:METER #: [id number] 12/24/2024 9:06 AM EDT 12/24/2024 9:09 AM EDT Generic External Data Provider LAB BLOOD ORDERAB LES Final Result Performing Organization Address [facility]/State/ZIP Co de Phone Number [facility] [address] [place] [phone] * (ABNORMAL) Hm Colonoscopy (12/24/2024) Pathologist [facility] Colonoscopy Abnormal(A ) Normal 12/24/2024 Anam Provider HEALTH MAINTENANCE Final Result * Culture, Urine, Routine (12/12/2024 9:44 AM EDT) Urine Urine specimen obtained by clean catch procedure / Unknown 12/12/2024 9:44 AM EDT 12/12/2024 5:47 PM EDT Comment:UACC Narrative [facility] - 12/14/2024 10:45 AM EDT Urine Culture No growth. Specimen Source: Urine clean catch Aliyah Espino MD LAB MICROBIOLOGY - GENER AL ORDERABLES Final Result [facility] [address] [place] [address] [phone] * (ABNORMAL) POCT urinalysis dipstick manually resulted (12/12/2024 9:29 AM EDT) Pathologist [facility] Color, UA Yellow Comment:Dark Clarity, UA Cloudy Glucose, UA Negative Bilirubin, UA Negative Ketones, UA Negative Spec Grav, UA 1.025 Blood, UA Positive(A) Negative, None Detected Comment:Large pH, UA 6.0 Protein, UA Trace Urobilinogen, UA 0.2 Leukocytes, UA Negative Negative, Rare, Trace Nitrite, UA Negative Negative, None Detected Appearance, UA OK Urine 12/12/2024 9:29 AM EDT Aliyah Espino MD POINT OF CARE TEST ENTER /EDIT ORDERABLES Final Result * (ABNORMAL) POCT HGB A1C (12/02/2024 9:00 AM EDT) [facility] Hemoglobin A1C 6.7(A) 4.0 - 6.0 % QC Media Lot # [id number] Lot# Expiration Date [id number] Blood 12/02/2024 9:00 AM EDT Result [facility] Samra Marsh MD POINT OF CARE TEST ENTER/EDIT OR DERABLES Final Result * OCT, Retina - OU - Both [...] 11:44 AM EST) Creatinine, Urine 411.52 mg/dL [facility] Microalbumin Urine 56.0 mg/L [facility] Microalbum Creatinine Ratio Ur 13.6 <30 ug/mg cr [facility] Comment:Albumin/Creatinine R atio Reference Ranges: Normal: < 30 ug/mg creatinine Microalbuminuria: 30 - 300 ug/mg creatinineClinical Albuminuria: > 300 ug/mg creatinine 09/30/2024 11:4 4 AM EST 09/30/2024 1:11 PM EST Samra Marsh MD LAB URINE ORDERABLES Final Resul t [facility] [address] [place] [address] [phone] * (ABNORMAL) Lipid Panel, Standard (09/30/2024 11:44 AM EST) Triglycerides 169(H) <150 mg/dL [facility] Comment:Desirable Triglyceri de: less than 150 mg/dLBorderline High Triglyceride 150-199 mg/dLHigh Triglyceride: 200-499 mg/dLVery High Triglyceride: greater than or equal to 5OO mg/dL Cholesterol 158 <200 mg/dL [facility] Comment:Desirable Cholestero l: less than 200 mg/dLBorderline High Cholesterol: 200-239 mg/dLHigh Cholesterol: greater than 239 mg/dL LDL Cholesterol Calculated 76 <100 mg/dL [facility] Comment:Desirable LDL: less than 100 mg/dLNear Optimal/Above Optimal LDL: 110- 129 mg/dLBorderline High LDL: 130-159 mg/dLHigh LDL: 160-189 mg/dLVery High LDL: greater than or equal to 190 mg/dL HDL Cholesterol 49 >40 mg/dL [facility] Comment:Desirable HDL: great er than 40 mg/dL Note: This HDL assay may give artificially low results in patients with liver disease. 09/30/2024 11:4 4 AM EST 09/30/2024 1:14 PM EST us Samra Marsh MD LAB BLOOD ORDERABLES Final Resul t [facility] [address] [place] [phone] * Hepatitis C Antibody with Reflex to HCV, RNA, Quantitative, Real-Time PCR (09/08/2022 10:06 AM EST) Hepatitis C Antibody NON-REACT PETER NON-REACT PETER [employer] Index <0.02 <1.00 [employer] [facility] Comment: HCV antibody was non-reactive. There is no laboratory evidence of HCV infection. In most cases, no further action is required. However, if recent HCV exposure is suspected, a test for HCV RNA (test code 05883) is suggested. For additional information please refer to http://education.Accera/faq/UNF22v1 (This link is being provided for informational/ educational purposes only.) Blood Venous blood specimen / Unknown 09/08/2022 10:06 AM EST 09/08/2022 10:07 AM EST Narrative [facility] - 09/12/2022 10:07 PM EST FASTING:NO FASTING: NO Tawny Bass MD LAB BLOOD ORDERABLES Final Result [facility] [address] [facility], [address], [place] [address] [facility] [place] [facility] [address] [facility], ([address]) [place] [address] * HIV-1/2 Antigen and Antibodies, Fourth Generation, with Reflexes (09/08/2022 10:06 AM EST) HIV Antigen/Antibody, 4th Generation NON-REAC TIVE NON-REAC TIVE [facility] Comment: HIV-1 antigen and HIV-1/HIV-2 antibodies were [...] ?? For additional information please refer to http://education.Effektif.Vquence/faq/TAM050 (This link is being provided for informational/ educational purposes only.) The performance of this assay has not been clinically validated in patients less than 2 years old. Blood Venous blood specimen / Unknown 09/08/2022 10:06 AM EST 09/08/2022 10:07 AM EST Narrative [facility] - 09/12/2022 10:07 PM EST FASTING:NO FASTING: NO Tawny Bass MD LAB BLOOD ORDERABLES Final Result [facility] [address] [facility], [address], [place] [address] [facility] [address] [facility], ([address]) [place] [address] from Last 3 Months or Most Recently Relevant to Health Maintenance Insurance [facility] C3 DENTAL-[facility] MEDICAID STAND ADULT Care Teams Freelance Court Reporter Relationship Specialty Start Date End Date Samra Marsh MD [address] [place], [place] [phone] PCP - General Family Medicine 08/21/18 Francois Rider, TomásD [address] [place], [place] [phone] Pharmacist Internal Medicine 12/30/22 Yung Patel, MERVAT [address] [place] [address] [phone] Washer CutterEntry Level Sales Representative 11/20/23 Brandon Jones Jr Washer CutterEntry Level Sales Representative 05/10/24 [employer] 06/24/22
--- OUTSIDE RECORDS SUMMARY | 2025-01-08 12:44 | XMS_ITS | Encounter Summary ---
Author Organization [employer] Address [address] [facility] 7t [place] [address] Care Team Providers Care Scow Hand Name Role Phone Samra Marsh MD Primary Care Provider [phone] Francois Rider PharmD Unavailable [phone] Yung Patel RN Unavailable [phone] Reason for Visit * Reason Comments Med Refill Encounter Details Date Type Department Care Team (Late st Contact Info) Description 04/04/2024 Refill [facility] [address] [place], [place] [phone] Samra Marsh MD [address] [place], [place] [phone] Diabetic polyneuropathy associated with type 2 diabetes [...] Description 01/20/2025 10:15 AM EDT Office Visit [facility] [address] [place] [phone] Samra Marsh MD [address] [place] [address] 06/16/2025 9:00 AM EDT Medication Management [facility] [address] [place] [address] [phone] Francois Rider PharmD [address] [place] [address] [phone] documented as of this encounter Goals Goal [...] documented as of this encounter Care Teams Scow Hand Relationship Specialty Start Date End Date Samra Marsh MD [address] [place] [address] PCP - General Family Medicine 08/21/18 Francois Rider, TomásD [address] [place] [phone] Pharmacist Internal Medicine 12/30/22 Yung Patel, MERVAT [address] [place] [address] Retail Support SpecialistStockroom Coordinator 11/20/23 Brandon Jones Jr Retail Support SpecialistStockroom Coordinator 05/10/24 [employer] 06/24/22 documented as of this encounter
--- OUTSIDE RECORDS SUMMARY | 2025-01-08 12:44 | XMS_ITS | Encounter Summary ---
Author Organization [employer] Address [address] [facility] 7t [place] [address] Care Team Providers Care Supervisor Typesetting Name Role Phone Samra Marsh MD Primary Care Provider [phone] Francois Rider PharmD Unavailable [phone] Yung Patel RN Unavailable [phone] Reason for Visit * Reason Comments Med Refill Encounter Details Date Type Department Care Team (Late st Contact Info) Description 03/27/2024 Refill [facility] [address] [place], [place] [phone] Samra Marsh MD [address] [place], [place] [phone] Diabetic polyneuropathy associated with type 2 diabetes [...] Description 01/20/2025 10:15 AM EDT Office Visit [facility] [address] [place] [phone] Samra Marsh MD [address] [place] [address] 06/16/2025 9:00 AM EDT Medication Management [facility] [address] [place] [phone] Francois Rider PharmD [address] [place] [address] documented as of this encounter Goals Goal [...] documented as of this encounter Care Teams Supervisor Typesetting Relationship Specialty Start Date End Date Samra Marsh MD [address] [place] [address] PCP - General Family Medicine 08/21/18 Francois Rider, TomásD [address] [place] [address] Pharmacist Internal Medicine 12/30/22 Yung Patel, MERVAT [address] [place] [address] 31802 Apron WorkerGill Tender 11/20/23 Brandon Jones Jr Apron WorkerGill Tender 05/10/24 [employer] 06/24/22 documented as of this encounter
--- OUTSIDE RECORDS SUMMARY | 2025-01-08 12:44 | XMS_ITS | Encounter Summary ---
Author Organization [employer] Address [address] [facility] 7t [place] [address] Care Team Providers Care Felt Cutting Machine Operator Name Role Phone Samra Marsh MD Primary Care Provider [phone] Francois Rider PharmD Unavailable [phone] Yung Patel RN Unavailable [phone] Encounter Details Date Type Department Care Team (Latest Contact Info) Description 12/10/2020 Abstract [facility] Dental, Provider, DDS Social History [...] Description 01/20/2025 10:15 AM EDT Office Visit [facility] [address] [place] [address] [phone] Samra Marsh MD [address] [place] [address] [phone] 06/16/2025 9:00 AM EDT Medication Management [facility] [address] [place] [address] [phone] Francois Rider, PharmD [address] [place], [place] [phone] documented as of this encounter Visit Diagnoses Not on filedocumented in this encounter Care Teams Felt Cutting Machine Operator Relationship Specialty Start Date End Date Samra Marsh MD [address] [place] [address] PCP - General Family Medicine 08/21/18 Francois Rider, Jared [address] [place], [place] [phone] Pharmacist Internal Medicine 12/30/22 Yung Patel, MERVAT [address] [place] [address] Financial Services ManagerHeavy Equipment Engine Mechanic 11/20/23 Sharon Perez Community Health Worker Case Management 01/18/24 01/18/24 Brandon Jones Financial Services ManagerHeavy Equipment Engine Mechanic 05/10/24 [employer] 06/24/22 documented as of this encounter
--- OUTSIDE RECORDS SUMMARY | 2025-01-08 12:44 | XMS_ITS | Encounter Summary ---
Author Organization [employer] Address [address] [facility] 7t [place] [address] Care Team Providers Care Wedding Day Coordinator Name Role Phone Samra Marsh MD Primary Care Provider [phone] Francois Rider PharmD Unavailable Yung Patel RN Unavailable [phone] Encounter Details Date Type Department Care Team (Latest Contact Info) Description 09/14/2018 Abstract [facility] Dental, Provider, DDS Social History [...] Description 01/20/2025 10:15 AM EDT Office Visit [facility] [address] [place] [phone] Samra Marsh MD [address] [place] [address] [phone] 06/16/2025 9:00 AM EDT Medication Management [facility] [address] [place] [address] [phone] Francois Rider, PharmD [address] [place], [place] [phone] documented as of this encounter Visit Diagnoses Not on filedocumented in this encounter Care Teams Wedding Day Coordinator Relationship Specialty Start Date End Date Samra Marsh MD [address] [place] [address] PCP - General Family Medicine 08/21/18 Francois Rider, Jared [address] [place], [place] [phone] Pharmacist Internal Medicine 12/30/22 Yung Patel RN [address] [place] [phone] Senior Mechanical Project EngineerReed Maker 11/20/23 Sharon Perez Community Health Worker Case Management 01/18/24 01/18/24 Brandon Jones Senior Mechanical Project EngineerReed Maker 05/10/24 [employer] 06/24/22 documented as of this encounter
--- OUTSIDE RECORDS SUMMARY | 2025-01-08 12:44 | XMS_ITS | Encounter Summary ---
Author Organization [employer] Address [address] [facility] 7t [place] [address] Care Team Providers Care Project Buyer Name Role Phone Samra Marsh MD Primary Care Provider [phone] Francois Rider PharmD Unavailable [phone] Yung Patel RN Unavailable [phone] Encounter Details Date Type Department Care Team (Late st Contact Info) Description 10/25/2023 Orders Only [facility] [address] [place], [place] [phone] Samra Marsh MD [address] [place], [place] [phone] Type 2 diabetes mellitus with hyperglycemia, with long-term current use of insulin ([facility]) (Primary Dx); Primary hypertension; Intellectual disability; Hloland's esophagus without dysplasia; Moderate persistent asthma without complication Social History Tobacco Use Types Packs/Day Years Used Date Smoking Tobacco: Former Cigarettes Passive Smoke Exposure: Past Smokeless Tobacco: Never Depression Answer Date Recorded Patient Health Questionnaire-9 Score 0 09/08/2022 Housing Stability Answer Date Recorded What is your housing situation today? I have belindaamina streeter 06/06/[address] you [...] Description 01/20/2025 10:15 AM EDT Office Visit [facility] [address] [place] [address] [phone] Samra Marsh MD [address] [place] [address] 06/16/2025 9:00 AM EDT Medication Management [facility] [address] [place] [address] Francois Rider PharmD [address] [place] [address] documented as of this encounter Goals Goal [...] hyperglycemia, with long-term current use of insulin ([facility])- Primary Primary hypertension Unspecified essential hypertension Intellectual disability Unspecified mental retardation Holland's esophagus without dysplasia Moderate persistent asthma without complication documented in this encounter Additional Health Concerns Assessment Noted Time PHQ-9 Depression Total Score: 0 09/08/19 23 9:31 AM EST documented as of this encounter Care Teams Project Buyer Relationship Specialty Start Date End Date Samra Marsh MD [address] [place] [address] PCP - General Family Medicine 08/21/18 Francois Rider, Jared [address] [place], [place] [phone] Pharmacist Internal Medicine 12/30/22 Yung Patel RN [address] [place] [address] Human Resources Executive AssistantIrrigation Equipment Installer 11/20/23 Sharon Perez Community Health Worker Case Management 01/18/24 01/18/24 Brandon Jones Human Resources Executive AssistantIrrigation Equipment Installer 05/10/24 [employer] 06/24/22 documented as of this encounter
--- OUTSIDE RECORDS SUMMARY | 2025-01-08 12:44 | XMS_ITS | Encounter Summary ---
Author Organization [employer] Address [address] [facility] [address] 7[address] [place] [address] Care Team Providers Care Box Lidder Name Role Phone Samra Marsh MD Primary Care Provider [phone] Francois Rider PharmD Unavailable [phone] Yung Patel RN Unavailable [phone] Encounter Details Date Type Department Care Team (Latest Contact Info) Description 01/08/2025 Travel Social History Tobacco Use Types Packs/Day [...] Description 01/20/2025 10:15 AM EDT Office Visit [facility] [address] [place] [address] [phone] Samra Marsh MD [address] [place] [address] 114[address] 06/16/2025 9:00 AM EDT Medication Management [facility] [address] [place] [address] [phone] Francois Rider PharmD [address] [place] [address] [phone] documented as of this encounter Goals Goal Patient Goal Type Associated Problems Recent Progress Patient-Stated? Author Blood Pressure < 140/90 Blood Pressure 118/72(2024 10:06 AM EDT) No Francois Rider PharmNick Hemoglobin A1c < 7 Result Component 6.7( 9:00 AM EDT) No Francois Rider PharmD documented as of this encounter Visit Diagnoses Not on filedocumented in this encounter Additional Health Concerns Assessment Noted Time PHQ-9 Depression Total Score: 4 09/30/19 25 11:06 AM EST documented as of this encounter Care Teams Box Lidder Relationship Specialty Start Date End Date Samra Marsh MD [address] [place] [address]74 PCP - General Family Medicine 08/21/18 Francois Rider, TomásD [address] [place] [address] Pharmacist Internal Medicine 12/30/22 Yung Patel, RN [address] [place] [address] Well LoggerSupervisor Dock 11/20/23 Brandon Jones Jr Well LoggerSupervisor Dock 05/10/24 [facility] 06/24/22 documented as of this encounter
--- OUTSIDE RECORDS SUMMARY | 2025-01-08 12:44 | XMS_ITS | Encounter Summary ---
Author Organization [employer] Address [address] [facility] 7t [place] [address] Care Team Providers Care Care Asst Name Role Phone Samra Marsh MD Primary Care Provider [phone] Francois Rider PharmD Unavailable Yung Patel RN Unavailable [phone] Encounter Details Date Type Department Care Team (Late st Contact Info) Description 04/27/2023 Telephone [facility] [address] [place], [place] [phone] Samra Marsh MD [address] [place], [place] [phone] Social History Tobacco Use Types Packs/Day Years [...] sensor and medications . Best contact number [phone]. documented in this encounter Plan of Treatment Upcoming Encounters Date Type Department Care Team (Late st Contact Info) Description 01/20/2025 10:15 AM EDT Office Visit [facility] [address] [place] [phone] Samra Marsh MD [address] [place] [address] 06/16/2025 9:00 AM EDT Medication Management [facility] [address] [place] [address] [phone] Francois Rider PharmD [address] [place] [address] documented as of this encounter Goals Goal Patient Goal Type Associated Problems Recent Progress Patient-Stated? Author Blood Pressure < 140/90 Blood Pressure 118/72(2024 10:06 AM EDT) No Francois Rider, Jared Hemoglobin A1c < 7 Result Component 6.7( 9:00 AM EDT) No Francois Rider PharmD documented as of this encounter Visit Diagnoses Not on filedocumented in this encounter Additional Health Concerns Assessment Noted Time PHQ-9 Depression Total Score: 0 09/08/19 23 9:31 AM EST documented as of this encounter Care Teams Care Asst Relationship Specialty Start Date End Date Samra Marsh MD [address] [place] [address] PCP - General Family Medicine 08/21/18 Francois Rider, TomásD [address] [place] [address] [phone] Pharmacist Internal Medicine 12/30/22 Yung Patel RN [address] [place] [address] 17268 Extension Service AgentSenior Grants Officer 11/20/23 Sharon Perez Community Health Worker Case Management 01/18/24 01/18/24 Brandon Jones Extension Service AgentSenior Grants Officer 05/10/24 [employer] 06/24/22 documented as of this encounter
--- OUTSIDE RECORDS SUMMARY | 2025-01-08 12:44 | XMS_ITS | Encounter Summary ---
Author Organization [employer] Address [address] [facility] 7t [place] [address] Care Team Providers Care Public Area Supervisor Name Role Phone Samra Marsh MD Primary Care Provider [phone] Francois Rider PharmD Unavailable [phone] Yung Patel RN Unavailable [phone] Encounter Details Date Type Department Care Team (Late st Contact Info) Description 01/08/2025 10:00 AM EDT Office Visit [facility] [address] [place], [place] [phone] Name, MD Swapnil [address] [place], [place] [phone] Right knee pain, unspecified chronicity (Primary Dx) Social History Tobacco Use Types Packs/Day Years [...] the past 12 months, has t he [employer], [employer], oil or water [employer] threatened to shut off services in your [...] Mass Index 33.63 01/08/2025 10:06 AM EDT documented in this encounter Progress Notes * Swapnil Martinez MD - 01/08/2025 10:00 AM EDT Subjective Patient ID: Miguel Goldstein is a 59 y.o. male who presents for No chief complaint on file.. 2 weeks of pain (anterior knee mostly) No history of trauma No swelling Limping and difficulties with stairs and getting up from a chair No pain in any other joint Review of Systems Constitutional: Negative for fever. Respiratory: Negative for shortness of breath. Cardiovascular: Negative for chest pain. Musculoskeletal: See HPI Visit Vitals BP 118/72 (BP Location: Left arm, Patient Position: Sitting, BP Cuff Size: Adult) Pulse 80 Temp 98.9 ??F (37.2 ??C) (Temporal) Resp 10 Ht 5' 8 (1.727 m) Wt 221 lb 3.2 oz (100 kg) SpO2 94% BMI 33.63 kg/m?? Smoking Status Former BSA 2.19 m?? Objective Physical Exam Constitutional: General: He is not in acute distress. Appearance: He is not toxic-appearing. Cardiovascular: Rate and Rhythm: Normal rate and regular rhythm. Pulmonary: Effort: No respiratory distress. Musculoskeletal: Right knee: No swelling, deformity or crepitus. Normal range of motion. Tenderness present. Comments: Antalgic gait Assessment/Plan Diagnoses and all orders for this visit: Right knee pain, unspecified chronicity Comments: I suspect patellofemoral pain syndrome or right knee DJD. The patient tells me he thinks the pain has to do with trauma to the right knee he had many years ago but he denies any recent trauma. I recommend a course of naproxen for pain. Check right knee x-ray. I encouraged patient to contact PCP for referral to orthopedics or physical therapy if he does not feel much better in the next week or so with the use of naproxen. Orders: - XR Knee 3 Views Right; Future - naproxen (Naprosyn) 500 MG tablet; Take 1 tablet (500 mg) by mouth 2 times daily for 10 days. documented in this encounter Plan of Treatment Upcoming Encounters Date Type Department Care Team (Late st Contact Info) Description 01/20/2025 10:15 AM EDT Office Visit [facility] [address] [place] [address] Samra Marsh MD [address] [place] [address] 06/16/2025 9:00 AM EDT Medication Management [facility] [address] [place] [address] Francois Rider PharmD [address] [place] [address] documented as of this encounter Goals Goal [...] AM EDT Right knee pain, unspecified chronicity documented in this encounter Results * XR Knee 3 Views Right (01/08/2025 11:26 AM EDT) Anatomical Region Laterality Modality Lower Extremities, Knee Right Radiogra phic Imaging 01/08/2025 11:2 6 AM EDT Narrative 01/08/2025 12:25 PM EDT ?[facility] ?[address] ?[place] [address] ?XRay Report ? Signed ? Patient: Class,Miguel ?MR#: [id number] ? : 1965 ?Acct:[id number] ? Age/Sex: 59 / M ?ADM Date: 01/08/25 ? Loc: HO.HHCX ? Attending Dr: Swapnil Martinez MD ? Ordering Physician: Swapnil Martinez MD ?? Date of Service: 01/08/25 ?? Procedure(s): XR knee RT 3V ?? Accession Number(s): [id number] ? cc: Swapnil Martinez MD ? EXAMINATION: [...] DD/ 1126 ? TD/TT: 01/08/25 1140 ? Cotton Buyer: ? Procedure Note Yordy, Image - 01/08/2025 [place] [address] XRay Report Signed Patient: Clint Goldstein#: [id number] : 1965Acct:[id number] Age/Sex: 59 / MADM Date: 01/08/25 Loc: HO.HHCX Attending Dr: Swapnil Martinez MD Ordering Physician: Swapnil Martinez MD Date of Service: 01/08/25 Procedure(s): XR knee RT 3V Accession Number(s): [id number] cc: Swapnil Martinez MD EXAMINATION: XR KNEE, [...] Vincenzo Milligan MD 01/08/2025 12:22 PM EDT RP Dictated By: Vincenzo Milligan MD Signed By: <Electronically signed by Vincenzo Milligan MD in OV> 01/08/25 1222 DD/ 1126 TD/TT: 01/08/25 1140 Cotton Buyer: us Swapnil Name IMG XR PROCEDURES Final Result documented in this encounter Visit Diagnoses Diagnosis Right knee pain, unspecified chronicity- Primary documented in this encounter Additional Health Concerns Assessment Noted Time PHQ-9 Depression Total Score: 4 09/30/19 25 11:06 AM EST documented as of this encounter Care Teams Public Area Supervisor Relationship Specialty Start Date End Date Samra Marsh MD [address] [place] [address] PCP - General Family Medicine 08/21/18 Francois Rider, Jared [address] [place] [address] Pharmacist Internal Medicine 12/30/22 Yung Patel, MERVAT [address] [place] [address] Instructional Systems SpecialistPreschool Education Director 11/20/23 Brandon Jones Jr Instructional Systems SpecialistPreschool Education Director 05/10/24 [employer] 06/24/22 documented as of this encounter
--- OUTSIDE RECORDS SUMMARY | 2025-01-08 12:44 | XMS_ITS | Encounter Summary ---
Author Organization [employer] Address 75 [facility] 7t [place] [address] Care Team Providers Care Indoor Sports Centre Manager Name Role Phone Samra Marsh MD Primary Care Provider [phone] Francois Rider PharmD Unavailable Yung Patel RN Unavailable [phone] Encounter Details Date Type Department Care Team ([facility] Contact Info) Description 07/27/2022 Abstract [facility] [address] [place] [address] Samra Marsh MD [address] [place] [address] [phone] Social History Tobacco Use Types Packs/Day Years [...] Upcoming Encounters Date Type Department Care Team ([facility] Contact Info) Description 01/20/2025 10:15 AM EDT Office Visit [facility] [address] [place] [phone] Samra Marsh MD [address] [place] [address] 06/16/2025 9:00 AM EDT Medication Management [facility] [address] [place], [place] [phone] Francois Rider, PharmD [address] [place] [address] documented as of this encounter Visit Diagnoses Not on filedocumented in this encounter Care Teams Indoor Sports Centre Manager Relationship Specialty Start Date End Date Samra Marsh MD [address] [place] [address] [phone] PCP - General Family Medicine 08/21/18 Francois Rider, PharmD [address] [place] [address] [phone] Pharmacist Internal Medicine 12/30/22 Yung Patel, MERVAT [address] [place] [address] Barnworker GroomCommunications Manager 11/20/23 Sharon Perez Community Health Worker Case Management 01/18/24 01/18/24 Brandon Jones Jr Barnworker GroomCommunications Manager 05/10/24 [employer] 06/24/22 documented as of this encounter
--- OUTSIDE RECORDS SUMMARY | 2025-01-08 12:44 | XMS_ITS | Encounter Summary ---
Author Organization [employer] Address 75 [facility] 7t [place] [address] Care Team Providers Care Head Start Director Name Role Phone Samra Marsh MD Primary Care Provider [phone] Francois Rider PharmD Unavailable [phone] Yung Patel RN Unavailable [phone] Reason for Visit * Reason Comments Med Refill Encounter Details Date Type Department Care Team ([facility] st Contact Info) Description 06/24/2023 Refill [facility] [address] [place], [place] [phone] Samra Marsh MD [address] [place], [place] [phone] Diabetic polyneuropathy associated with type 2 diabetes [...] Description 01/20/2025 10:15 AM EDT Office Visit [facility] [address] [place] [address] Samra Marsh MD [address] [place] [address] 06/16/2025 9:00 AM EDT Medication Management [facility] [address] [place] [address] Francois Rider PharmD [address] [place] [address] documented as of this encounter Goals Goal [...] documented as of this encounter Care Teams Head Start Director Relationship Specialty Start Date End Date Samra Marsh MD [address] [place] [address] [place] [address] PCP - General Family Medicine 08/21/18 Francois Rider, TomásD [address] [place] [address] Pharmacist Internal Medicine 12/30/22 Yung Patel, MERVAT [address] [place] [address] Performance ManagerSteel Die Press Set Up Operator 11/20/23 Sharon Perez Community Health Worker Case Management 01/18/24 01/18/24 Brandon Jones Jr Performance ManagerSteel Die Press Set Up Operator 05/10/24 [email or web address] 06/24/22 documented as of this encounter
--- OUTSIDE RECORDS SUMMARY | 2025-01-08 12:44 | XMS_ITS | Encounter Summary ---
Author Organization [employer] Address [address] [facility] 7t [place] [address] Care Team Providers Care Supervisor Histology Name Role Phone Samra Marsh MD Primary Care Provider [phone] Francois Rider PharmD Unavailable [phone] Yung Patel RN Unavailable [phone] Reason for Referral * Consultation (Routine) - Authorized Specialty Diagnoses / Procedures Referred By Cristofer casiano Referred To Contact Pharmacy Diagnoses Type 2 diabetes mellitus with hyperglycemia, with long-term current use of insulin (CMS/HCC) Primary hypertension Samra Marsh MD [address] [place] [address] Phone: tel: fax: Referral ID Status Reason Start Date Expiration Date Visits Requested Visits Authorized [id number] Authorized Consult and Treat 10/24/2024 10/24/2025 6 6 Encounter Details Date Type Department Care Team (Late st Contact Info) Description 10/24/2024 Orders Only [facility] [address] [place] [address] [phone] Samra Marsh MD [address] [place], [place] [phone] Type 2 diabetes mellitus with hyperglycemia, with [...] Description 01/20/2025 10:15 AM EDT Office Visit [facility] [address] [place] [phone] Samra Marsh MD [address] [place] [address] 06/16/2025 9:00 AM EDT Medication Management [facility] [address] [place] [address] Francois Rider, TomásD [address] [place] [address] Scheduled Referrals Name Type Priority Associated Diagnoses Orde r Schedule Referral to Pharmacy CDTM Outpatient Referral Routine Type 2 diabetes mellitus with hyperglycemia, with long-term current use of insulin ([facility]) Primary hypertension Ordered: 10/24/2024 documented as of [...] hyperglycemia, with long-term current use of insulin ([facility])- Primary Primary hypertension Unspecified essential hypertension documented in this encounter Additional Health Concerns Assessment Noted Time PHQ-9 Depression Total Score: 4 09/30/19 25 11:06 AM EST documented as of this encounter Care Teams Supervisor Histology Relationship Specialty Start Date End Date Samra Marsh MD [address] [place] [address] PCP - General Family Medicine 08/21/18 Francois Rider, PharmD [address] [place] [address] Pharmacist Internal Medicine 12/30/22 Yung Patel, MERVAT [address] [place] [address] Solvent Plant TreaterUnified Communications Architect 11/20/23 Brandon Jones Jr Solvent Plant TreaterUnified Communications Architect 05/10/24 [employer] 06/24/22 documented as of this encounter
== END 2025-01-08 11:26 | disposition home or self-care (01) ==
LOC: HO.HHCX 11:25
PROVIDERS: Visit Provider Internal Medicine Geriatric Medicine
DX: M25.561 Pain in right knee (principal)
CPT/HCPCS: 73562

== ENCOUNTER → 2025-01-08 11:26 | Outpatient (BNV) | payer MEDICAID, SELFPAY | PROVIDERS: Visit Provider Radiology Diagnostic Radiology | DX: M17.11 Unilateral primary osteoarthritis, right knee (principal) | CPT/HCPCS: 73562 ==

== ENCOUNTER 2025-02-10 10:41 | Outpatient (AMB) | payer MEDICAID, SELFPAY ==
[2025-02-10 11:00] VITALS: BP 110/60; PULSE 79; O2SAT 94; BMI 34.2
--- NOTE | 2025-02-10 11:00 | A.OFFVIS_ITS ---
Vital Signs 02/10/25 11:00 Height 5 ft 7 in Weight 218 lb 4.122 oz BMI 34.2 BP 110/60 Blood Pressure Location Lt brachial Position Sitting Pulse 79 Pulse Source Pulse Oximeter Pulse Oximetry (%) 94 Oxygen Delivery Method Room Air Intake Visit Reasons: Asthma Intake Note: pt is here for follow up and states he is feeling good, breahing is good Pit Shoveler Required: Yes Pit Shoveler Services: Pit Shoveler Present Pit Shoveler Name: Tawny (OA) Allergies No Known Allergies (No Known Allergies*) Allergy (Verified 02/10/25 11:12) Medication List - Last Reconciled 02/10/25 by Sarwat Acosta MD albuterol sulfate mg inhalation QID PRN albuterol sulfate 90 mcg/actuation (ProAir HFA) 2 puffs inhalation Q6H PRN 30 days alcohol swabs (Alcohol Prep Pads) pad topical TID atorvastatin 20 mg PO BEDTIME bisacodyl (Dulcolax (bisacodyl)) 20 mg (4 x 5 mg) PO ONCE 1 day bisacodyl (Dulcolax (bisacodyl)) 10 mg (2 x 5 mg) PO BEDTIME 2 days blood sugar diagnostic (inexio Verio test strips) As directed blood-glucose meter (Neomenduch Verio Flex Meter) As directed bupropion HCl SR 100 mg PO DAILY cyclobenzaprine 10 mg PO DAILY PRN dexlansoprazole (Dexilant) 60 mg PO QAM doxepin 10 mg PO BEDTIME epinephrine (EpiPen 2-Fausto) 0.3 mg (0.3 mL) IM Q10M PRN famotidine 40 mg PO BEDTIME fluticasone propion-salmeterol 250-50 mcg/dose (Advair Diskus) 1 ea PO fluticasone propionate 50 mcg/actuation 1 spray intranasal DAILY 30 days gabapentin 300 mg PO BID insulin degludec (Tresiba FlexTouch U-100 insulin) 26 units subcut DAILY lancets (H.BLOOMTouch Delica Plus Lancet) As directed lisinopril 2.5 mg PO DAILY losartan 12.5 mg PO QAM metformin ER 1,000 mg PO oxcarbazepine (Trileptal) 150 mg PO BID peg 3350-electrolytes 236-22.74-6.74 -5.86 gram 240 mL PO Q10M peg 3350-electrolytes 236-22.74-6.74 -5.86 gram (Golytely) 240 mL PO Q10M 1 day risperidone 0.5 mg PO BID sucralfate 1 g PO BID trazodone 150 mg PO BEDTIME PRN Do you need a note to return to daycare/school/sports/work: No HPI HPI Asthma: Details: THIS 59 YEARS OLD GENTLEMAN, LEBANESE-SPEAKING, VERY PLEASANT AND GROSSLY OBESE, COMES FOR FOLLOW-UP AFTER 6 MONTHS. HE IS USING ADVAIR 250-50 1 INHALATION TWICE A DAY AND ALBUTEROL JUST PRN WHY A MED INHALER OR NEBULIZER. HE STAYS THAT BREATHING ALVARADO HE HAS REMAINED VERY STABLE AND THERE HAS BEEN. NO ACUTE EXACERBATION ONLY COMPLAINT BEING MILD INTERMITTENT COUGH AND SHORTNESS OF BREATH IF HE WALKS. FAST OR CLIMBS STAIRS PFSH Medical History Diabetes Asthma Bronchospasm History of dysphagia GERD (gastroesophageal reflux disease) History of Holland's esophagus COPD (chronic obstructive pulmonary disease) Allergic rhinitis Cough Surgical History Hx of abdominal surgery Hx of colonoscopy History of esophagogastroduodenoscopy (EGD) Family History Sister Leukemia Social History Household Members: None Alcohol intake: never Patient Tobacco Use Status: Former Tobacco user Current occupational status: unemployed Review of Systems Const All systems reviewed & are unremarkable except as noted in HPI and below Eyes Reports no additional complaints ENT Reports nasal congestion (Mild off and on especially at night) Card Denies chest pain, Denies irregular heart rhythm and Denies leg edema Resp Reports as per HPI GI Reports heartburn (Intermittent controlled with use of sucralfate and Dexilant) Reports no additional complaints Musc Reports no additional complaints Skin/Breast Reports system reviewed and no additional complaints, except as documented Neuro Reports no additional complaints Psych Reports anxiety (Controlled) Endo Reports no additional complaints Sukhdev/Lymph Reports no additional complaints Physical Exam Vital Signs: Last Vital Signs Pulse 79 02/10/25 11:00 BP 110/60 02/10/25 11:00 Pulse Ox 94 02/10/25 11:00 Oxygen Delivery Method Room Air 02/10/25 11:00 BMI result Body Mass Index 34.2 Const General: healthy appearing (Except for being overweight), comfortable, no acute distress, alert and awake Orientation/consciousness: patient oriented x3 HEENT Head: Yes normal to inspection General nose exam: No nasal polyps present and No nasal discharge present Face and sinus: Yes sinuses nontender Mouth: oropharynx normal Throat: Yes posterior oropharynx normal Eyes General: appearance normal, both eyes and all related structures Neck Neck: Yes normal visual inspection, Yes no lymphadenopathy, Yes trachea midline and Yes no JVD Thyroid: Thyroid normal Chest Chest palpation & inspection: normal inspection of the chest, normal palpation of entire chest wall and no tenderness Resp Effort & Inspection: normal respiratory effort Auscultation: clear to auscultation bilaterally, no crackles and no wheezes Percussion: percussion normal Cardio Palpation: normal PMI Rate: regular rate Rhythm: regular rhythm Heart sounds: no gallops and no murmurs Peripheral pulses: Peripheral pulses 2+ throughout GI Palpation (GI): Soft to palpation, nontender, No hepatosplenomegaly present, no masses and Other GI palpation findings present (Abdomen is obese and slightly protuberant) Auscultation: normal bowel sounds Back/Spine/Pelvis Thoracic/Lumbar Spine: thoracic and lumbar spine normal to inspection Skin General skin exam: no rashes or lesions noted Neuro General: patient oriented x3 and no focal motor deficits Cranial nerves: Yes CN's II-XII intact bilaterally Extrem General: Yes normal to inspection, Yes no clubbing, cyanosis or edema and Yes no calf tenderness Psych Appearance: grossly normal and well kempt Speech and movement: Normal speech and movement present Assessment & Plan Assessment & Plan (1) Asthma: Comment: HE HAS MILD INTERMITTENT BRONCHOSPASM/ ASTHMA , WELL CONTROLLED AT THIS TIME. Code(s): J45.909 - Unspecified asthma, uncomplicated Category: Medical Plan: CONTINUE USING ADVAIR DISKUS 250-50 1 INHALATION B.I.D. AND ALBUTEROL HFA 2 PUFFS Q 4-6 HOURS P.R.N. (2) Allergic rhinitis: Comment: ALLERGIC RHINITIS SEEMS TO BE MILD, IT IS NOT ACTIVE AT PRESENT Code(s): J30.9 - Allergic rhinitis, unspecified Category: Medical Plan: DOES NOT NEED ANY ACTIVE TREATMENT FOR THIS AT THIS TIME Coding Level of Care Code Est Pt Level 3 (51666) Diagnoses Asthma J45.909 Allergic rhinitis J30.9
--- OUTSIDE RECORDS SUMMARY | 2025-02-10 11:59 | XMS_ITS | Encounter Summary ---
Author Organization [employer] Address 75 [facility] 7t [place] [address] Care Team Providers Care Frame Trimmer Name Role Phone Samra Marsh MD Primary Care Provider [phone] Franocis Rider PharmD Unavailable [phone] Yung Patel RN Unavailable [phone] Reason for Visit * Reason Comments Med Refill Encounter Details Date Type Department Care Team (Late st Contact Info) Description 03/27/2024 Refill [facility] [address] [place], [place] [phone] Samra Marsh MD [address] [place], [place] [phone] Diabetic polyneuropathy associated with type 2 diabetes [...] Care Team (Late st Contact Info) Description 06/16/2025 9:00 AM EDT Medication Management [facility] [address] [place] [phone] Francois Rider PharmD [address] [place] [address] documented as of this encounter Goals Goal Patient Goal Type Associated Problems Recent Progress Patient-Stated? Author Blood Pressure < 140/90 Blood Pressure 134/88(2024 10:28 AM EDT) No Francois Rider PharmD Hemoglobin [...] documented as of this encounter Care Teams Frame Trimmer Relationship Specialty Start Date End Date Samra Marsh MD [address] [place] [address] PCP - General Family Medicine 08/21/18 Francois Rider PharmD [address] [place] [address] Pharmacist Internal Medicine 12/30/22 Yung Patel RN [address] [place] [address] [place] [address] Fur BlowerPattern Marking Supervisor 11/20/23 Brandon Jones Jr Fur BlowerPattern Marking Supervisor 05/10/24 [employer] 06/24/22 documented as of this encounter
== END 2025-02-10 11:18 | disposition home or self-care (01) ==
LOC: HO.HPS 10:42
PROVIDERS: PCP Internal Medicine Geriatric Medicine; Visit Provider Internal Medicine
DX: J45.909 Unspecified asthma, uncomplicated (principal); J30.9 Allergic rhinitis, unspecified
CPT/HCPCS: 99213

== ENCOUNTER → 2025-02-10 10:41 | Outpatient (BNVA) | payer MEDICAID, SELFPAY | PROVIDERS: PCP Internal Medicine Geriatric Medicine; Visit Provider Internal Medicine | DX: J45.909 Unspecified asthma, uncomplicated (principal) | CPT/HCPCS: 99212 ==

== ENCOUNTER 2025-02-11 12:27 | Outpatient (AMB) | payer MEDICAID, SELFPAY ==
--- NOTE | 2025-02-11 13:04 | A.OFFVIS_ITS ---
Intake Visit Reasons: Lower urinary tract symptoms Intake Note: New patient presents today for initial visit for lower urinary tract symptoms Urology Medication:None Blood Thinner:None Antibiotic Allergies:None PVR:16ml Gas Welding Machine Operator Required: Yes Gas Welding Machine Operator Services: Gas Welding Machine Operator Present Gas Welding Machine Operator Name: Darnell [id number] Allergies No Known Allergies (No Known Allergies*) Allergy (Verified 02/11/25 13:42) Medication List - Last Reconciled 02/11/25 by KEITH Andrew-GLADIS albuterol sulfate mg inhalation QID PRN albuterol sulfate 90 mcg/actuation (ProAir HFA) 2 puffs inhalation Q6H PRN 30 days alcohol swabs (Alcohol Prep Pads) pad topical TID atorvastatin 20 mg PO BEDTIME bisacodyl (Dulcolax (bisacodyl)) 20 mg (4 x 5 mg) PO ONCE 1 day bisacodyl (Dulcolax (bisacodyl)) 10 mg (2 x 5 mg) PO BEDTIME 2 days blood sugar diagnostic (Mapflow Verio test strips) As directed blood-glucose meter (adFreequch Verio Flex Meter) As directed bupropion HCl SR 100 mg PO DAILY cyclobenzaprine 10 mg PO DAILY PRN dexlansoprazole (Dexilant) 60 mg PO QAM doxepin 10 mg PO BEDTIME epinephrine (EpiPen 2-Fausto) 0.3 mg (0.3 mL) IM Q10M PRN famotidine 40 mg PO BEDTIME fluticasone propion-salmeterol 250-50 mcg/dose (Advair Diskus) 1 ea PO fluticasone propionate 50 mcg/actuation 1 spray intranasal DAILY 30 days gabapentin 300 mg PO BID insulin degludec (Tresiba FlexTouch U-100 insulin) 26 units subcut DAILY lancets (Hemp 4 HaitiTouch Delica Plus Lancet) As directed lisinopril 2.5 mg PO DAILY losartan 12.5 mg PO QAM metformin ER 1,000 mg PO oxcarbazepine (Trileptal) 150 mg PO BID peg 3350-electrolytes 236-22.74-6.74 -5.86 gram 240 mL PO Q10M peg 3350-electrolytes 236-22.74-6.74 -5.86 gram (Golytely) 240 mL PO Q10M 1 day risperidone 0.5 mg PO BID sucralfate 1 g PO BID trazodone 150 mg PO BEDTIME PRN HPI Comments Details: Miguel is a 59-year-old Syriac-speaking male patient of Dr. Marsh. He has a PMH of diabetes, asthma, dysphagia, GERD, Holland's esophagus, COPD and allergic rhinitis. He presents to the office today as a new patient for lower urinary tract symptoms. In discussion with the patient today he is extremely vague in discussing urological concerns. Initially he had reported no bothersome urinary issues or concerns however been reported an episode of difficulty urinating with dysuria. He reports this to be a solitary event. He currently denies any bothersome urinary issues. He denies urinary urgency, urinary frequency, incontinence, nocturia, hematuria, dysuria, foul smelling urine, changes to urinary stream, flank pain, fever, and or chills. He is happy with his current v oiding parameters. In office urinalysis results reviewed with the patient today. PVR 16 mL. We did discussed potential causes of urinary issue he had been experiencing. We did discussed further workup of PSA and retroperitoneal ultrasound. All questions were answered. He otherwise offers no other issues or concerns at this time. [facility] Medical History Diabetes Asthma Bronchospasm History of dysphagia GERD (gastroesophageal reflux disease) History of Holland's esophagus COPD (chronic obstructive pulmonary disease) Allergic rhinitis Cough Surgical History Hx of abdominal surgery Hx of colonoscopy History of esophagogastroduodenoscopy (EGD) Family History Sister Leukemia Social History Household Members: None Alcohol intake: never Patient Tobacco Use Status: Former Tobacco user Current occupational status: unemployed Review of Systems Const All systems reviewed & are unremarkable except as noted in HPI and below Physical Exam Const General: cooperative, healthy appearing, comfortable, no acute distress, well developed, alert and awake Nutritional Appearance: overweight Orientation/consciousness: patient oriented x3 Limitations: no limitations HEENT Head: Yes normal to inspection, Yes normocephalic and Yes atraumatic Ears: hearing grossly normal bilaterally Eyes General: appearance normal, both eyes and all related structures Neck Neck: Yes normal visual inspection and Yes trachea midline Chest Chest palpation & inspection: normal inspection of the chest Resp Effort & Inspection: normal respiratory effort and able to speak in complete sentences Cardio Rate: regular rate GI Inspection: Yes normal to inspection General: Yes no CVA tenderness Back/Spine/Pelvis Back: no CVA tenderness Skin General skin exam: no rashes or lesions noted Neuro General: patient oriented x3 Extrem General: Yes normal to inspection Psych Appearance: grossly normal and well kempt Mental Status: mental status grossly normal Speech and movement: Normal speech and movement present and Clear speech present Affect: normal affect Attitude: cooperative Thought process: Normal thought process present Thought content: Normal thought content present Insight: Fair insight present (Psych) Judgement: Fair judgement present (Psych) Assessment & Plan Assessment & Plan (1) Dysuria: Code(s): R30.0 - Dysuria Category: Medical Plan In office urinalysis results reviewed with the patient today; as noted above. PVR 16 mL. Will obtain retroperitoneal ultrasound for further assessment evaluation. Will obtain PSA for further assessment evaluation. KERON offered however deferred. We did discuss importance of adequate hydration relation to overall health and well-being. We also discussed the importance of management and diabetes for improvement in overall health and well-being. He currently denies any bothersome urinary issues. He reports be happy with current voiding parameters. Follow-up in 3-4 months with imaging and labs; or sooner with any issues, concerns, and or questions. Orders: Orders AMB Urinalysis Automated Today Z13.9 - Encounter for screening, unspecified AMB Post Void Residual by ultrasound Today Z13.9 - Encounter for screening, unspecified Prostate Specific Antigen Today N40.0 - Benign prostatic hyperplasia without lower urinary tract symptoms US retroperitoneal comp Today R30.0 - Dysuria Medications: Discontinued peg 3350-electrolytes 236-22.74-6.74 -5.86 gram (Golytely) until fecal effluent is clear; do not exceed a total volume of 2,000 mL Discontinued Reason: Duplicate 240 mL PO Q10M 1 day 4,000 mL 0RF Z12.11 - Encounter for screening for malignant neoplasm of colon Patient Instructions: The patient had an opportunity to ask questions regarding the treatment plan. All questions were answered. Physical exam, labs, and imaging were discussed and reviewed in detail. As well as risks, benefits, and discussion of treatment choices. No major barriers to understanding were identified. The patient expressed understanding and agreement with the above treatment plan. The patient was made aware they should contact our office by phone for worsening of their current condition, the appearance of new symptoms, or with any questions or concerns. Compliance is encouraged with any medications and follow up testing that is ordered. It is a privilege to be allowed the opportunity to participate in? your urological care.? Again, if you have any questions or concerns If you have any questions or concerns please do not hesitate to contact me. The office is [phone]. This note is constructed using voice recognition software. While every effort has been made to ensure accuracy oil pump station operator chief errors may have been included. Yours sincerely, PHILIP Andrew Coding Level of Care Code New Pt Level 3 (90942) Diagnoses Dysuria R30.0
--- OUTSIDE RECORDS SUMMARY | 2025-02-11 13:59 | XMS_ITS | Encounter Summary ---
Author Organization [employer] Address [address] [facility] 7t [place] [address] Care Team Providers Care Abrasive Grinder Name Role Phone Samra Marsh MD Primary Care Provider [phone] Francois Rider PharmD Unavailable [phone] Yung Patel RN Unavailable [phone] Reason for Visit * Reason Comments Med Refill Encounter Details Date Type Department Care Team (Late st Contact Info) Description 03/27/2024 Refill [facility] [address] [place], [place] [phone] Samra Marsh MD [address] [place], [place] [phone] Diabetic polyneuropathy associated with type 2 diabetes [...] [facility] [address] [place] [phone] Francois Rider PharmD [address] [place] [phone] documented as of this encounter Goals Goal [...] documented as of this encounter Care Teams Abrasive Grinder Relationship Specialty Start Date End Date Samra Marsh MD [address] [place] [phone] PCP - General Family Medicine 08/21/18 Francois Rider PharmD [address] [place] [address]31 Pharmacist Internal Medicine 12/30/22 Yung Patel RN [address] [place] [address] MANOJ Myles [id number] Rn Or [employer] Airspace Control Officer 11/20/23 Brandon Jones Jr Rn Or [employer] Airspace Control Officer 05/10/24 [employer] 06/24/22 documented as of this encounter
== END 2025-02-11 14:05 | disposition home or self-care (01) ==
LOC: HO.HUSH 12:28
PROVIDERS: PCP Family Medicine; Visit Provider Nurse Practitioner Family
DX: R30.0 Dysuria (principal); Z13.9 Encounter for screening, unspecified
CPT/HCPCS: 99203

== ENCOUNTER → 2025-02-11 12:27 | Outpatient (BNVA) | payer MEDICAID, SELFPAY | PROVIDERS: PCP Family Medicine; Visit Provider Nurse Practitioner Family | DX: R30.0 Dysuria (principal) | CPT/HCPCS: 81003; 99212 ==

== ENCOUNTER 2025-03-06 09:49 | Outpatient (AMB) | payer MEDICAID, SELFPAY ==
--- OUTSIDE RECORDS SUMMARY | 2025-03-06 10:13 | XMS_ITS | Encounter Summary ---
Author Organization [employer] Address [address] [facility] 7t [place] [address] Care Team Providers Care Dry Placer Machine Operator Name Role Phone Samra Marsh MD Primary Care Provider [phone] Francois Rider PharmD Unavailable [phone] Yung Patel RN Unavailable [phone] Reason for Visit * Reason Comments Med Refill Encounter Details Date Type Department Care Team (Late st Contact Info) Description 03/27/2024 Refill [facility] [address] [place], [place] [phone] Samra Marsh MD [address] [place], [place] [phone] Diabetic polyneuropathy associated with type 2 diabetes [...] Description 06/16/2025 9:00 AM EDT Medication Management [facility] [address] [place] [phone] Francois Rider PharmD [address] [place] [phone] documented as of this encounter Goals Goal [...] documented as of this encounter Care Teams Dry Placer Machine Operator Relationship Specialty Start Date End Date Samra Marsh MD [address] [place] [address] PCP - General Family Medicine 08/21/18 Francois Rider PharmD [address] [place] [address]38 Pharmacist Internal Medicine 12/30/22 Yung Patel RN [address] [place] [address] MANOJ Myles [id number] Workers Compensation Claims AnalystDoor Liner Helper 11/20/23 Brandon Jones Jr Workers Compensation Claims AnalystDoor Liner Helper 05/10/24 [employer] 06/24/22 documented as of this encounter
--- NOTE | 2025-03-06 10:18 | MHC.OFFVIS ---
Vital Signs 03/06/25 10:25 Height 5 ft 7 in Weight 207 lb 3.752 oz BMI 32.5 BP 121/76 Blood Pressure Location Lt brachial Position Sitting Pulse 74 Intake Visit Reasons: follow up labs Intake Note: Honey presents in the office for his follow up blood work. CC: Results to his blood work. Chimney Sweeper Required: Yes Chimney Sweeper Name: [id number] Ashley Allergies No Known Allergies (No Known Allergies*) Allergy (Verified 02/11/25 13:42) HPI HPI follow up labs: Details: Assessment & Plan (1) GERD with esophagitis: Code(s): K21.00 - Gastro-esophageal reflux disease with esophagitis, without bleeding Category: Medical (2) Holland's esophagus: Comment: 2017 EGD = SSBE by biopsy and visual; 2021 scope no metaplasia but continued esophageal irritation noted Code(s): K22.70 - Holland's esophagus without dysplasia Category: Medical (3) Pre-op examination: Code(s): Z01.818 - Encounter for other preprocedural examination Category: Medical Plan [place] #Lon Live He is due for a colonoscopy, he had a negative exam in 2013 He continues to do well on his medications; his Dexilant, famotidine and carafate He thinks he had a sister who of crc - she of some colon problem. His COPD is well controlled and he denies any cardiac problems. There are no prior problems with anesthesia or sedation, he is on Trulicity. No ID problems Orders: Orders Complete Blood Count Auto Diff Today Z01.818 - Encounter for other preprocedural examination Comprehensive Met. Panel Today Z01.818 - Encounter for other preprocedural examination Colonoscopy - GI Use Only Today Z01.818 - Encounter for other preprocedural examination Medications: New peg 3350-electrolytes 236-22.74-6.74 -5.86 gram (Golytely) until fecal effluent is clear; do not exceed a total volume of 2,000 mL 240 mL PO Q10M 4,000 mL 0RF 1 day Z12.11 - Encounter for screening for malignant neoplasm of colon bisacodyl (Dulcolax (bisacodyl)) 10 mg (2 x 5 mg) PO BEDTIME 4 tabs 0RF 2 days Refilled famotidine 40 mg PO BEDTIME 30 tabs 6RF K21.00 - Gastro-esophageal reflux disease with esophagitis, without bleeding, K22.70 - Holland's esophagus without dysplasia dexlansoprazole (Dexilant) 60 mg PO QAM 30 caps 6RF K21.00 - Gastro-esophageal reflux disease with esophagitis, without bleeding, K22.70 - Holland's esophagus without dysplasia sucralfate 1 g PO BID 60 tabs 6RF K21.00 - Gastro-esophageal reflux disease with esophagitis, without bleeding, K22.70 - Holland's esophagus without dysplasia LABS; Laboratory Tests 01/11/24 09/30/24 21:49 11:44 WBC 17.8 H RBC 5.39 Hgb 15.7 Hct 46.8 Plt Count 240 Immature Gran % (Auto) 0.5 H Neut % (Auto) 73.1 H Lymph % (Auto) 18.4 L Finney # (Auto) 1.3 H Abs Immat Gran (auto) 0.08 H Absolute Neuts (auto) 13.0 H Estimated GFR > 60 Total Bilirubin 0.4 Direct Bilirubin 0.2 AST 35 ALT 44 H Alkaline Phosphatase 104 COLONOSCOPY 12/24/24 Findings: Terminal Ileum-normal Cecum:normal Ascending Colon: 10 mm sessile polyp removed with cold snare, 4-5 mm sessile polyp removed with cold forceps Transverse Colon -normal Descending Colon: 10 mm sessile polyp lifted with methylene blue and removed with cold snare with one clip applied for hemostasis Sigmoid Colon: x 1 sessile polyp 10 mm removed with cold snare Rectum: Retroflexion with small internal hemorrhoids seen, grade I Anorectum - normal Intervention: cold snare, eleview and lift with EMR, cold forceps Impression and Post Procedure Diagnosis: colon polyps x4 internal hemorrhoids Plan: High fiber diet leaflet Avoid straining at stool, epsom salts and sitz bath, anusol supps or cream Repeat Colonoscopy in 8-12 months or earlier if clinically indicated BIOPSY Received: 12/24/24 Diagnosis A. Colon, ascending, polyps: Tubular adenomas (multiple pieces); negative for high-grade dysplasia and carcinoma. B. Colon, descending, polyp: Tubular adenoma; negative for high-grade dysplasia and carcinoma. C. Colon, sigmoid, polyps: Tubular adenomas (multiple pieces); negative for high-grade dysplasia and carcinoma TODAYS VISIT [place] #[id number] The procedure needs to be repeated in 12 mos r/t the # of TA's. The procedure was well tolerated. The results were explained and the patient is agreeable to the follow-up interval as stated. The bowel pattern has returned to normal. Education was provided to tell any 1st degree relatives about their findings to be sure that they are screened by age 45. Educated that they will be put on a recall list when it is time for their repeat scope but should they move out of state or away from the hospital they will need to remember along with their primary to repeat the procedure in a timely fashion to avoid any adverse complications. He continues to do well on his medications; his Dexilant, famotidine and carafate. Because he has increasing leukocytosis I am going to send him for repeat CBC. He denies feeling ill or having any illness in the month of December or being on prednisone therapy. This is a tad puzzling but if it resolves it is possible he was simply fighting off a viral insult. Return office visit in 6 months [facility] Medical History Diabetes Asthma Bronchospasm History of dysphagia GERD (gastroesophageal reflux disease) History of Holland's esophagus COPD (chronic obstructive pulmonary disease) Allergic rhinitis Cough Surgical History Hx of abdominal surgery Hx of colonoscopy History of esophagogastroduodenoscopy (EGD) Family History Sister Leukemia Social History Household Members: None Alcohol intake: never Patient Tobacco Use Status: Former Tobacco user Current occupational status: unemployed Review of Systems Const Denies fatigue, Denies fever(s), Denies night sweats, Denies poor appetite and Denies weight loss ENT Reports Normal hearing present, Denies dental pain, Denies dysphagia, Denies hearing loss, Denies mouth pain, Denies odynophagia, Denies throat swelling, Denies tongue swelling and Reports other (Dentition adequate) Card Reports no additional complaints Resp Reports no additional complaints GI Details: Denies abdominal pain, Denies melena, Denies bloating, Denies hematochezia, Denies constipation, Denies GI cramping, Denies dysphagia, Denies excessive flatus, Denies early satiety, Reports heartburn, Denies diarrhea, Denies nausea, Denies odynophagia, Denies vomiting and Denies hematemesis Skin/Breast Denies pruritus, Denies lesions, Denies rash and Denies jaundice Neuro Reports Normal hearing present and Denies Abnormal speech present Endo Denies fatigue Aller/Immun Denies throat swelling and Denies tongue swelling Physical Exam Vital Signs: Last Vital Signs Pulse 74 03/06/25 10:25 BP 121/76 03/06/25 10:25 BMI result Body Mass Index 32.5 Const General: cooperative, no acute distress, well developed and well groomed Nutritional Appearance: well nourished and obese Orientation/consciousness: oriented to person, oriented to place and oriented to time Limitations: language barrier HEENT Head: Yes normocephalic and Yes atraumatic Eyes General: appearance normal, both eyes and all related structures Pupils: Equal, round and reactive pupils present Neck Neck: Yes normal visual inspection and Yes no lymphadenopathy Thyroid: Thyroid normal Resp Effort & Inspection: normal respiratory effort and able to speak in complete sentences Auscultation: clear to auscultation bilaterally Cardio Rate: regular rate Rhythm: regular rhythm Heart sounds: Normal, physiologic split S2 sound present Peripheral pulses: radial pulses present and posterior tibial pulses present GI Inspection: No distended, No Abdominal panniculus present and Yes obesity Palpation (GI): Soft to palpation, nontender, no guarding, not rigid and No hepatosplenomegaly present Percussion: Yes normal to percussion Auscultation: normal bowel sounds Rectal Exam - Male: Yes deferred Skin General skin exam: no rashes or lesions noted, turgor normal, skin not dry, no jaundice, No spider nevi and no striae Rashes: no rashes Nails: normal Neuro General: oriented to person, oriented to place and oriented to time Cranial nerves: Yes Equal, round and reactive pupils present and Yes Normal hearing present Speech: No Abnormal speech present Extrem General: Yes normal to inspection, No clubbing, No cyanosis and No edema Psych Appearance: grossly normal and well kempt Mental Status: mental status grossly normal Speech and movement: Normal speech and movement present Affect: normal affect Attitude: cooperative Thought process: Normal thought process present and not confabulating Thought content: Normal thought content present Insight: Limited insight present (Psych) Judgement: Limited judgement present (Psych) Assessment & Plan Assessment & Plan (1) Tubular adenoma of colon: Comment: 12/2024SCOPE= 3 ta'S REPEAT 12 MOS Code(s): D12.6 - Benign neoplasm of colon, unspecified Category: Medical (2) Leukocytosis: Code(s): D72.829 - Elevated white blood cell count, unspecified Category: Medical (3) Dysphagia: Code(s): R13.10 - Dysphagia, unspecified Category: Medical (4) Holland's esophagus: Comment: 2017 EGD = SSBE by biopsy and visual; 2021 scope no metaplasia but continued esophageal irritation noted Code(s): K22.70 - Holland's esophagus without dysplasia Category: Medical (5) GERD with esophagitis: Code(s): K21.00 - Gastro-esophageal reflux disease with esophagitis, without bleeding Category: Medical Plan [place] #[id number] The procedure needs to be repeated in 12 mos r/t the # of TA's. The procedure was well tolerated. The results were explained and the patient is agreeable to the follow-up interval as stated. The bowel pattern has returned to normal. Education was provided to tell any 1st degree relatives about their findings to be sure that they are screened by age 45. Educated that they will be put on a recall list when it is time for their repeat scope but should they move out of state or away from the hospital they will need to remember along with their primary to repeat the procedure in a timely fashion to avoid any adverse complications. He continues to do well on his medications; his Dexilant, famotidine and carafate. Because he has increasing leukocytosis I am going to send him for repeat CBC. He denies feeling ill or having any illness in the month of December or being on prednisone therapy. This is a tad puzzling but if it resolves it is possible he was simply fighting off a viral insult. Return office visit in 6 months Orders: Orders Complete Blood Count Auto Diff Today D72.829 - Elevated white blood cell count, unspecified Coding Level of Care Code Est Pt Level 4 (08429) Diagnoses Tubular adenoma of colon D12.6 Leukocytosis D72.829 Dysphagia R13.10 Holland's esophagus K22.70 GERD with esophagitis K21.00 Time Spent (min) 35
[2025-03-06 10:25] VITALS: BP 121/76; PULSE 74; BMI 32.5
== END 2025-03-06 10:58 | disposition home or self-care (01) ==
LOC: HO.HGI 09:50
PROVIDERS: PCP Internal Medicine Geriatric Medicine; Visit Provider Nurse Practitioner
DX: D12.6 Benign neoplasm of colon, unspecified (principal); D72.829 Elevated white blood cell count, unspecified; R13.10 Dysphagia, unspecified; K22.70 Barrett's esophagus without dysplasia; K21.00 Gastro-esophageal reflux disease with esophagitis, without bleeding
CPT/HCPCS: 99214

== ENCOUNTER → 2025-03-06 09:49 | Outpatient (BNVA) | payer MEDICAID, SELFPAY | PROVIDERS: PCP Internal Medicine Geriatric Medicine; Visit Provider Nurse Practitioner | DX: K22.70 Barrett's esophagus without dysplasia (principal); D12.6 Benign neoplasm of colon, unspecified; D72.829 Elevated white blood cell count, unspecified; K21.00 Gastro-esophageal reflux disease with esophagitis, without bleeding; R13.10 Dysphagia, unspecified | CPT/HCPCS: 99212 ==

== ENCOUNTER 2025-03-12 08:17 | Outpatient (REF) | payer MEDICAID, SELFPAY ==
--- OUTSIDE RECORDS SUMMARY | 2025-03-12 08:30 | XMS_ITS | Encounter Summary ---
Author Organization [employer] Address [address] [facility] 7t [place] [address] Care Team Providers Care Birthing Nurse Name Role Phone Samra Marsh MD Primary Care Provider [phone] Francois Rider PharmD Unavailable [phone] Yung Patel RN Unavailable [phone] Reason for Visit * Reason Comments Med Refill Encounter Details Date Type Department Care Team (Late st Contact Info) Description 03/27/2024 Refill [facility] [address] [place], [place] [phone] Samra Marsh MD [address] [place], [place] [phone] Diabetic polyneuropathy associated with type 2 diabetes [...] Description 06/16/2025 9:00 AM EDT Medication Management [facility] [address] [place] [phone] Francois Rider PharmD [address] [place] [phone] documented as of this encounter Goals Goal [...] documented as of this encounter Care Teams Birthing Nurse Relationship Specialty Start Date End Date Samra Marsh MD [address] [place] [phone] PCP - General Family Medicine 08/21/18 Francois Rider PharmD [address] [place] [phone] Pharmacist Internal Medicine 12/30/22 Yung Patel RN [address] [place] [address] MANOJ Myles [phone] Company ControllerNumerical Control Nesting Operator 11/20/23 Brandon Jones Jr Company ControllerNumerical Control Nesting Operator 05/10/24 [employer] 06/24/22 documented as of this encounter
[2025-03-12 11:29] LABS: MANUAL DIFF FLAG NO
[2025-03-12 11:35] LABS: Hematocrit 40.7 % (42.0-52.0); Hemoglobin 13.4 g/dl (14.0-18.0); Imm Gran Abs Auto 0.05 X10*3/uL (0.00-0.03); Imm Gran Pct Auto 0.4 % (0.0-0.4); Lymphocytes Absolute Auto 4.1 X10*3/uL (1.2-4.9); Mean Corpuscular HGB Conc 32.9 g/dl (31.0-36.0); Mean Corpuscular Hemoglobin 29.5 pg (27.0-33.0); Mean Corpuscular Volume 89.5 fL (80.0-98.0); NRBC Abs Auto 0.000 X10*3/uL (0.0-0.012); NRBC Pct Auto 0.0 /100WBC (0.0-0.2); Platelet Count 259 X10*3/uL (160-400); Red Blood Count 4.55 X10*6/uL (4.60-5.80); White Blood Count 11.3 X10*3/uL (4.8-10.8)
[2025-03-12 11:42] LABS: Alanine Aminotransferase 27 U/L (0-40); Albumin Level 4.1 g/dL (3.5-5.0); Alkaline Phosphatase 97 U/L (39-117); Aspartate Amino Transferase 35 U/L (5-37); Cholesterol 112 mg/dL (<200); HDL Cholesterol 41 mg/dL (>40); Total Protein 7.2 g/dL (6.5-8.0); Triglycerides 102 mg/dL (<150)
[2025-03-12 12:10] LABS: Prostate Specific Antigen 2.67 ng/mL (<0.05-4.0)
== END 2025-03-12 08:18 | disposition home or self-care (01) ==
LOC: HO.HHCL 08:17
PROVIDERS: PCP Family Medicine; Referring Provider Nurse Practitioner Family; Visit Provider Nurse Practitioner
DX: E11.65 Type 2 diabetes mellitus with hyperglycemia (principal); N40.0 Benign prostatic hyperplasia without lower urinary tract symptoms; D72.829 Elevated white blood cell count, unspecified; Z79.4 Long term (current) use of insulin
CPT/HCPCS: 36415; 80061; 80076; 84153; 85025

== ENCOUNTER 2025-03-26 09:26 | Outpatient (AMB) | payer MEDICAID, SELFPAY ==
--- NOTE | 2025-03-26 09:34 | MHC.OFFVIS ---
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 He describes his pain as sharp in nature. Most of the pain is along the medial and anterior aspects of his right knee. He states that his right knee will intermittently give out as well. He has tried Tylenol and naproxen which gave him mild relief. He has had a cortisone injection given into his low back which gave him good relief. He has not had an injection into his knee. He wishes to hold off on surgery if at all possible. Local Area Network Administrator Required: Yes Local Area Network Administrator Services: Local Area Network Administrator Present Local Area Network Administrator Name: [id number] Allergies No Known Allergies (No Known Allergies*) Allergy (Verified 03/26/25 09:44) Medication List - Last Reconciled 03/26/25 by Lio Thacker MD albuterol sulfate mg inhalation QID PRN albuterol sulfate 90 mcg/actuation (ProAir HFA) 2 puffs inhalation Q6H PRN 30 days alcohol swabs (Alcohol Prep Pads) pad topical TID aspirin 81 mg PO QAM atorvastatin 40 mg PO BEDTIME bisacodyl (Dulcolax (bisacodyl)) 10 mg (2 x 5 mg) PO BEDTIME 2 days blood sugar diagnostic ([employer] Verio test strips) As directed blood-glucose meter ([employer] Verio Flex Meter) As directed bupropion HCl SR 100 mg PO DAILY cyclobenzaprine 10 mg PO DAILY PRN dexlansoprazole (Dexilant) 60 mg PO QAM doxepin 10 mg PO BEDTIME dulaglutide (Trulicity) mg subcut QWEEK epinephrine (EpiPen 2-Fausto) 0.3 mg (0.3 mL) IM Q10M PRN famotidine 40 mg PO BEDTIME fluticasone propion-salmeterol 250-50 mcg/dose (Advair Diskus) 1 ea PO fluticasone propionate 50 mcg/actuation 1 spray intranasal DAILY 30 days gabapentin 300 mg PO BID hydrochlorothiazide 12.5 mg PO QAM insulin degludec (Tresiba FlexTouch U-100 insulin) 26 units subcut DAILY lancets (Samuels SleepTouch Delica Plus Lancet) As directed lisinopril 2.5 mg PO DAILY losartan 12.5 mg PO QAM metformin ER 1,000 mg PO oxcarbazepine (Trileptal) 150 mg PO BID risperidone 0.5 mg PO BID sucralfate 1 g PO BID trazodone 150 mg PO BEDTIME PRN PFSH Medical History Diabetes Asthma Bronchospasm History of dysphagia GERD (gastroesophageal reflux disease) History of Holland's esophagus COPD (chronic obstructive pulmonary disease) Allergic rhinitis Cough Surgical History Hx of abdominal surgery Hx of colonoscopy History of esophagogastroduodenoscopy (EGD) Family History Sister Leukemia Social History Household Members: None Alcohol intake: never Patient Tobacco Use Status: Former Tobacco user Current occupational status: unemployed Physical Exam Vital Signs: BMI result Body Mass Index 32.9 Const Other: Well-nourished well-developed very friendly male awake alert and oriented x3 in no acute distress Extrem Other: Right knee examination shows a minimal effusion, mild crepitus with range of motion, tenderness along his medial joint line, positive Ajay's test, no instability Office Procedures AMB Joint Injection/Aspiration Joint Injection/Aspiration Primary Site: right knee Prep: site was prepped using aseptic technique Injected: 40 mg of, DepoMedrol and 1% plain lidocaine Procedure: The patient tolerated the procedure well Coding 95983 - Large joint Procedure code (CPT) selection complete Results Reviewed Results Reviewed: X-rays of the patient's right knee show mild diffuse joint space narrowing, no acute bony abnormalities Assessment & Plan Assessment & Plan (1) Arthritis of right knee: Code(s): M17.11 - Unilateral primary osteoarthritis, right knee Category: Medical Plan Mr. Goldstein presents with right knee pain and mechanical symptoms due to early degenerative joint disease as well as possible medial meniscus tearing. I had a lengthy discussion with the patient regarding the treatment options. The risks and benefits of a right knee cortisone injection were discussed at length with the patient. The patient wished to proceed. He tolerated the injection well. He will continue with his activity modifications. He will contact me prior to his follow-up appointment in 3 months should any questions or concerns arise. If his mechanical symptoms do continue or worsen I will order an MRI of his right knee to further evaluate the status of his medial meniscus. Feel free to call me at any time should questions regarding his orthopedic management arise. Thank you very much for asking me to see this very friendly gentleman. I spent 21 minutes in reviewing the patient's records and imaging studies, seeing the patient and documenting in the medical record. Orders: Orders AMB Joint Injection/Aspiration Today M17.11 - Unilateral primary osteoarthritis, right knee Coding Level of Care Code New Pt Level 3 (66973) Complex EM visit Add On G2211 Diagnoses Arthritis of right knee M17.11 CPT Codes Coding - 67812 Large joint: 51165 - Large joint ([id number])
[2025-03-26 09:43] VITALS: BMI 32.9
--- OUTSIDE RECORDS SUMMARY | 2025-03-26 09:49 | XMS_ITS | Encounter Summary ---
Author Organization [employer] Address [address] [facility] [place] [address] Care Team Providers Care Guardian Family Member Name Role Phone Samra Marsh MD Primary Care Provider [phone] Francois Rider PharmD Unavailable [phone] Yung Patel RN Unavailable [phone] Reason for Visit * Reason Comments Med Refill Encounter Details Date Type Department Care Team (Late st Contact Info) Description 03/27/2024 Refill [facility] MED[facility]INE [address] [place], [place] [phone] Samra Marsh MD [address] [place], [place] [phone] Diabetic polyneuropathy associated with type 2 diabetes [...] Care Team (Late st Contact Info) Description 04/07/2025 1:15 PM EDT Office Visit [facility] MEDICINE [address] [place] [phone] Samra Marsh MD [address] [place] [phone] 06/16/2025 9:00 AM EDT Medication Management [facility] [address] [place] [phone] Francois Rider PharmD [address] [place] [phone] documented as of this encounter Goals Goal Patient Goal Type Associated Problems Recent Progress Patient-Stated? Author Blood Pressure < 140/90 Blood Pressure 134/88(2024 10:28 AM EDT) No Francois Rider, PharmNick Hemoglobin [...] documented as of this encounter Care Teams Guardian Family Member Relationship Specialty Start Date End Date Samra Marsh MD [address] [place] [address] PCP - General Family Medicine 08/21/18 Francois Rider, TomásD [address] [place] [phone] Pharmacist Internal Medicine 12/30/22 Yung Patel, MERVAT [address] [place] [id number] [employer] 11/20/23 Brandon Jones Jr [employer] 05/10/24 [employer] 06/24/22 documented as of this encounter
== END 2025-03-26 10:09 | disposition home or self-care (01) ==
LOC: HO.HOS 09:27
PROVIDERS: PCP Internal Medicine Geriatric Medicine; Visit Provider Orthopaedic Surgery
DX: M17.11 Unilateral primary osteoarthritis, right knee (principal)
CPT/HCPCS: 20610; 99203

== ENCOUNTER → 2025-03-26 09:26 | Outpatient (BNVA) | payer MEDICAID, SELFPAY | PROVIDERS: PCP Internal Medicine Geriatric Medicine; Visit Provider Orthopaedic Surgery | DX: M17.11 Unilateral primary osteoarthritis, right knee (principal) | CPT/HCPCS: 20610; 99202; J1010; J2003 ==